=== PATIENT | male | born 1950 | race Caucasian/White ===

== ENCOUNTER 2017-11-04 18:54 | Emergency (ER) | payer MEDICARE ==
[~2017-11-04] VITALS: Ht 182.9 cm; Wt 90.7 kg
[~2017-11-04 18:54] MED LIST: ALGAL OMEGA-3200 MG PO; ASPI81CH PO; Aspir-Trin325 MG PO; BLUE; CALCA500CH PO; CEPH500 PO; COL-RITE250 MG PO; CYCL10; DOC250; DOCCAL240 PO; DOCSEN; ESCI10; FISH1000 PO; GABA300; GLIM2 PO; HYDCHL25 PO; METF500; METF500 PO; MILK THISTLE; MILK THISTLE140 MG PO; MORP30 PO; MORP30ER PO; MORP60ER; MULVITA; NIAC500 PO; OMEGA PO; OXYC10TA19; OXYC15ER PO; OXYC5 PO; PAROXETINE 5 MG; PRED20 PO; Percocet 5-3251 EACH PO; Potaba500 MG PO; STOOL SOFTENERS; Senna Plus Tab1 EACH PO; TIZA4; VALA500 PO; [UNRECOGNIZED DRUG - OTHER]; [UNRECOGNIZED DRUG - OTHER] PO
[2017-11-04] MEDS ORDERED: METF500C PO (19:19)
[2017-11-04] MEDS ORDERED: LISI5 PO (19:20)
[2017-11-04] MEDS ORDERED: GABA100 PO (19:24)
[2017-11-04] MEDS ORDERED: OMEPRAZOLE MAGN20 MG PO (19:25)
[2017-11-04] MEDS ORDERED: METCAR500 PO (19:27)
[2017-11-04] MEDS ORDERED: ACID REDUCER 1150 MG (19:27)
[2017-11-04 21:16] LABS: Alanine Aminotransfer (ALT/SGP 37 U/L (12-78); Albumin, Blood 3.2 g/dL (3.4-5.0); Albumin/Globulin Ratio 0.7 (0.8-1.8); Alk Phos 129 U/L (50-136); Anion Gap 10 mmol/L (6-16); Aspartate Aminotrans (AST/SGOT 58 U/L (12-37); Bilirubin, Total 0.5 mg/dL (0.1-1.0); Blood Urea Nitrogen 15 mg/dL (8-24); Bun/Creatinine Ratio 17.5 (12.0-20.0); CO2, Blood 23 mmol/L (21-32); Calcium, Blood 9.6 mg/dL (8.5-10.1); Chloride, Blood 104 mmol/L (98-108); Creatinine, Blood 0.86 mg/dL (0.60-1.20); Globulin, Blood 4.3 g/dL (2.2-4.0); Glomerular Filtration Rate >60 (60-); Glucose, Blood 185 mg/dL (70-99); Potassium, Blood 4.6 mmol/L (3.5-5.5); Sodium, Blood 137 mmol/L (136-145); Total Protein, Blood 7.5 g/dL (6.4-8.2)
[2017-11-04 21:26] LABS: BASOPHILS ABSOLUTE AUTO 0.02 K/mm3 (0.00-0.23); BASOPHILS PERCENT AUTO 0 % (0-2); EOSINOPHILS ABSOLUTE AUTO 0.23 K/mm3 (0.00-0.68); EOSINOPHILS PERCENT AUTO 4 % (0-6); Hemoglobin 8.6 g/dL (13.5-17.5); IMMATURE GRAN ABSOLUTE AUTO 0.01 K/mm3 (0.00-0.10); IMMATURE GRAN PERCENT AUTO 0 % (0-1); LYMPHOCYTES PERCENT AUTO 17 % (21-46); MONOCYTES ABSOLUTE AUTO 0.52 K/mm3 (0.16-1.47); MONOCYTES PERCENT AUTO 9 % (4-13); Mean Corpuscular HGB 26.4 pg (26.0-34.0); Mean Corpuscular HGB Conc 30.7 g/dL (31.5-36.5); Mean Corpuscular Volume 86 fL (80-100); NEUTROPHILS ABSOLUTE AUTO 4.15 K/mm3 (1.96-9.15); NEUTROPHILS PERCENT AUTO 70 % (41-73); Platelet Count 109 K/mm3 (150-400); Red Blood Cell Count 3.26 M/mm3 (4.30-5.90); White Blood Cell Count 5.93 K/mm3 (4.00-11.30)
[2017-11-04 21:28] LABS: Mean Platelet Volume 13.5 fL (9.1-12.4)
== END 2017-11-04 21:35 | disposition home or self-care (01) ==
LOC: ER 18:54
PROVIDERS: Emergency Medicine
DX: R40.4 Transient alteration of awareness (principal); E11.9 Type 2 diabetes mellitus without complications; I10 Essential (primary) hypertension; Z88.8 Allergy status to other drugs, medicaments and biological substances; Z88.0 Allergy status to penicillin; Z91.013 Allergy to seafood; Z79.899 Other long term (current) drug therapy; Z79.84 Long term (current) use of oral hypoglycemic drugs; Z79.82 Long term (current) use of aspirin
CPT/HCPCS: 80053; 83036; 85025; 93005; 93010; 99283

== ENCOUNTER 2018-09-10 10:29 | Day surgery (SDC) | payer MEDICARE ==
[~2018-09-10] VITALS: Ht 182.9 cm; Wt 111.4 kg
[~2018-09-10 10:29] MED LIST changes: +ACID REDUCER 1150 MG; +ASCO500 PO; +CHOL10002 PO; +CLOP75 PO; +CYCL10 PO; +DOC250 PO; +FAMO20 PO; +FISH OIL 1,0001 EAC1 PO; +GABA100 PO; +GLIM4 PO; +IRON SUPPLEMENT; +LISI5 PO; +MAGOXI400 PO; +METCAR500 PO; +METF500C PO; +Metformin HCl1000 MG PO; +Neurontin 300300 MG PO; +OMEPRAZOLE MAGN20 MG PO; +Prinivil10 MG PO; +Senna8.6 MG PO; +Simvastatin10 MG PO; +[UNRECOGNIZED DRUG - OTHER] PO
[2018-09-10] MEDS ORDERED: FURO20 (12:03)
== END 2018-09-10 14:37 | disposition home or self-care (01) ==
LOC: ORSCSDS 10:29
PROVIDERS: Internal Medicine Gastroenterology
PROC: 0DJD8ZZ Inspection of Lower Intestinal Tract, Via Natural or Artificial Opening Endoscopic (ICD-10-PCS; principal; 2018-09-10 13:00)
PROC: 0DJ08ZZ Inspection of Upper Intestinal Tract, Via Natural or Artificial Opening Endoscopic (ICD-10-PCS; principal; 2018-09-10 13:00)
DX: Z12.11 Encounter for screening for malignant neoplasm of colon (principal); K57.30 Diverticulosis of large intestine without perforation or abscess without bleeding; K76.0 Fatty (change of) liver, not elsewhere classified; K74.60 Unspecified cirrhosis of liver; G47.33 Obstructive sleep apnea (adult) (pediatric); I85.00 Esophageal varices without bleeding; K76.6 Portal hypertension; K31.89 Other diseases of stomach and duodenum; I10 Essential (primary) hypertension; E11.9 Type 2 diabetes mellitus without complications; F17.210 Nicotine dependence, cigarettes, uncomplicated; Z86.73 Personal history of transient ischemic attack (TIA), and cerebral infarction without residual deficits; Z79.899 Other long term (current) drug therapy
CPT/HCPCS: 43235; G0121; 82947; J1980; J2704; J7120

== ENCOUNTER 2019-04-21 12:14 | Inpatient (IN) | payer MEDICARE ==
[~2019-04-21] VITALS: Ht 175.3 cm; Wt 119.8 kg
[~2019-04-21 12:14] MED LIST changes: +FURO20 PO
[2019-04-21] MEDS ORDERED: OXYC5 PO (13:15)
[2019-04-21] MEDS ORDERED: PROBIOTIC1 EAC6 PO (13:16)
[2019-04-21] MEDS ORDERED: VITAMIN D-32000 UNIT PO (13:17)
[2019-04-21] MEDS ORDERED: ASCO500 PO (13:17)
[2019-04-21] MEDS ORDERED: MAGNESIUM OXID400 MG PO (13:18)
[2019-04-21] MEDS ORDERED: FERRETTS325 MG PO (13:18)
[2019-04-21] MEDS ORDERED: Potassium99 MG PO (13:19)
[2019-04-21 14:13] LABS: International Normalized Ratio 1.05; Prothrombin Time Results 11.1 Sec (9.7-11.5)
[2019-04-21 14:15] LABS: Alanine Aminotransfer (ALT/SGP 43 U/L (12-78); Albumin, Blood 3.3 g/dL (3.4-5.0); Alk Phos 78 U/L (50-136); Anion Gap 6 mmol/L (6-16); Aspartate Aminotrans (AST/SGOT 39 U/L (12-37); Bilirubin, Total 0.5 mg/dL (0.1-1.0); Blood Urea Nitrogen 16 mg/dL (8-24); Bun/Creatinine Ratio 19.5 (12.0-20.0); CO2, Blood 25 mmol/L (21-32); Calcium, Blood 8.9 mg/dL (8.5-10.1); Chloride, Blood 110 mmol/L (98-108); Creatinine, Blood 0.82 mg/dL (0.60-1.20); Globulin, Blood 3.2 g/dL (2.2-4.0); Glomerular Filtration Rate >60 (60-); Glucose, Blood 162 mg/dL (70-99); Potassium, Blood 3.9 mmol/L (3.5-5.5); Sodium, Blood 141 mmol/L (136-145); Total Protein, Blood 6.5 g/dL (6.4-8.2)
[2019-04-21 14:16] LABS: BASOPHILS ABSOLUTE AUTO 0.02 K/mm3 (0.00-0.23); BASOPHILS PERCENT AUTO 1 % (0-2); EOSINOPHILS ABSOLUTE AUTO 0.16 K/mm3 (0.00-0.68); EOSINOPHILS PERCENT AUTO 4 % (0-6); Hematocrit 32.9 % (37.0-53.0); Hemoglobin 10.8 g/dL (13.5-17.5); IMMATURE GRAN ABSOLUTE AUTO 0.01 K/mm3 (0.00-0.10); IMMATURE GRAN PERCENT AUTO 0 % (0-1); LYMPHOCYTES ABSOLUTE AUTO 0.65 K/mm3 (0.84-5.20); LYMPHOCYTES PERCENT AUTO 16 % (21-46); MONOCYTES ABSOLUTE AUTO 0.36 K/mm3 (0.16-1.47); MONOCYTES PERCENT AUTO 9 % (4-13); Mean Corpuscular HGB 31.2 pg (26.0-34.0); Mean Corpuscular HGB Conc 32.8 g/dL (31.5-36.5); Mean Corpuscular Volume 95 fL (80-100); NEUTROPHILS ABSOLUTE AUTO 2.81 K/mm3 (1.96-9.15); NEUTROPHILS PERCENT AUTO 70 % (41-73); Platelet Count 55 K/mm3 (150-400); RDW Coefficient Variation 13.7 % (11.7-14.2); RDW Standard Deviation 47.5 fL (35.1-46.3); Red Blood Cell Count 3.46 M/mm3 (4.30-5.90); White Blood Cell Count 4.01 K/mm3 (4.00-11.30)
[2019-04-21 14:39] LABS: Mean Platelet Volume 13.2 fL (9.1-12.4)
--- NOTE | 2019-04-21 15:13 | NUR ---
ECHOCARDIOGRAM COMPLETED
[2019-04-21 15:15] LABS: Percent Saturation 12.6 % (20.0-50.0)
--- NOTE | 2019-04-21 19:06 | NUR ---
ARRIVED FROM ER VIA SONIDO, TRANSFERRED TO BED, DR. DAVIS HERE TO SEE PT.
[2019-04-22 04:06] LABS: BASOPHILS ABSOLUTE AUTO 0.01 K/mm3 (0.00-0.23); BASOPHILS PERCENT AUTO 0 % (0-2); EOSINOPHILS ABSOLUTE AUTO 0.17 K/mm3 (0.00-0.68); EOSINOPHILS PERCENT AUTO 4 % (0-6); Hematocrit 32.7 % (37.0-53.0); Hemoglobin 10.4 g/dL (13.5-17.5); IMMATURE GRAN ABSOLUTE AUTO 0.01 K/mm3 (0.00-0.10); IMMATURE GRAN PERCENT AUTO 0 % (0-1); LYMPHOCYTES ABSOLUTE AUTO 0.86 K/mm3 (0.84-5.20); LYMPHOCYTES PERCENT AUTO 21 % (21-46); MONOCYTES ABSOLUTE AUTO 0.43 K/mm3 (0.16-1.47); MONOCYTES PERCENT AUTO 11 % (4-13); Mean Corpuscular HGB 30.7 pg (26.0-34.0); Mean Corpuscular HGB Conc 31.8 g/dL (31.5-36.5); Mean Corpuscular Volume 97 fL (80-100); NEUTROPHILS ABSOLUTE AUTO 2.55 K/mm3 (1.96-9.15); NEUTROPHILS PERCENT AUTO 63 % (41-73); Platelet Count 59 K/mm3 (150-400); RDW Coefficient Variation 13.4 % (11.7-14.2); RDW Standard Deviation 47.8 fL (35.1-46.3); Red Blood Cell Count 3.39 M/mm3 (4.30-5.90); White Blood Cell Count 4.03 K/mm3 (4.00-11.30)
[2019-04-22 04:12] LABS: Mean Platelet Volume 13.6 fL (9.1-12.4)
[2019-04-22 04:22] LABS: Anion Gap 5 mmol/L (6-16); Blood Urea Nitrogen 16 mg/dL (8-24); Bun/Creatinine Ratio 18.2 (12.0-20.0); CO2, Blood 27 mmol/L (21-32); Calcium, Blood 9.1 mg/dL (8.5-10.1); Chloride, Blood 111 mmol/L (98-108); Creatinine, Blood 0.88 mg/dL (0.60-1.20); Glomerular Filtration Rate >60 (60-); Glucose, Blood 135 mg/dL (70-99); Potassium, Blood 4.1 mmol/L (3.5-5.5); Sodium, Blood 143 mmol/L (136-145)
--- NOTE | 2019-04-22 06:24 | NUR ---
PT NPO POST MIDNIGHT FOR POSS OR TODAY. PT BP ELEVATED THIS AM, DID RESPOND TO PRN HYDRALAZINE. RLE SHORTENED AND EXT ROTATED, PT REP NO CHANGES IN SENSATION. PAIN MED PER EMAR W/REP RELIEF. PT USING URINAL TO VOID, XRAY COMPLETED THIS AM, PLAN FOR ECHO THIS AM. IVF CON PER ORDERS. PT USING CALL LIGHT FOR ASSISTANCE, WILL CONT TO MONITOR UNTIL REP GIVEN TO ONCOMING RN.
--- NOTE | 2019-04-22 17:41 | NUR ---
SHIFT SUMMARY PT A&OX4, VSS, PLAN FOR SURGERY THIS EVENING. PAIN MANAGED WITH 1 MG DILAUDID PER EMAR. NPO OF CLEAR LIQUIDS SINCE [address] CONCEPCION ORDER. 18G RWRIST, 20G LFA. IVF @ 30 MLS/HR. WILL REPORT TO ONCOMING NOC FRANCO.
--- NOTE | 2019-04-22 19:37 | NUR ---
PT IN OR AT THIS TIME .
--- NOTE | 2019-04-22 21:44 | NUR ---
PT FROM ICU TO SURGICAL FLOOR PT ARRIVED FROM ICU TO SURGICAL FLOOR AT 2130 TODAY. PT A&OX4 BUT DROWSY WITH VSS. RIGHT HIP AQUACEL DRESSING C/D/I WITH SOME SHADOWING. ICE APPLIED TO AREA AT THIS TIME. REPORTS N/T IN BLE AT BASELINE. DENIES SOB, DYSPNEA, OR CHEST PAIN. SPO2 AT 94% ON 1L NC. REPORTS PAIN AT 9/10 WITH 7/10 BEING TOLERABLE. WILL MEDICATE PER EMAR. SPOUSE ATTENTIVE AT BEDSIDE. CALL LIGHT WITHIN REACH AND PT DEMONSTRATED APPROPRIATE USE.
[2019-04-23 05:14] LABS: BASOPHILS PERCENT AUTO 0 % (0-2); EOSINOPHILS ABSOLUTE AUTO 0.01 K/mm3 (0.00-0.68); EOSINOPHILS PERCENT AUTO 0 % (0-6); Hematocrit 31.9 % (37.0-53.0); Hemoglobin 10.6 g/dL (13.5-17.5); IMMATURE GRAN ABSOLUTE AUTO 0.03 K/mm3 (0.00-0.10); IMMATURE GRAN PERCENT AUTO 0 % (0-1); LYMPHOCYTES ABSOLUTE AUTO 0.54 K/mm3 (0.84-5.20); LYMPHOCYTES PERCENT AUTO 7 % (21-46); MONOCYTES ABSOLUTE AUTO 0.38 K/mm3 (0.16-1.47); MONOCYTES PERCENT AUTO 5 % (4-13); Mean Corpuscular HGB 31.6 pg (26.0-34.0); Mean Corpuscular HGB Conc 33.2 g/dL (31.5-36.5); Mean Corpuscular Volume 95 fL (80-100); NEUTROPHILS ABSOLUTE AUTO 6.57 K/mm3 (1.96-9.15); NEUTROPHILS PERCENT AUTO 87 % (41-73); Platelet Count 72 K/mm3 (150-400); RDW Coefficient Variation 13.2 % (11.7-14.2); RDW Standard Deviation 46.5 fL (35.1-46.3); Red Blood Cell Count 3.35 M/mm3 (4.30-5.90); White Blood Cell Count 7.53 K/mm3 (4.00-11.30)
[2019-04-23 05:26] LABS: Mean Platelet Volume 13.2 fL (9.1-12.4)
--- NOTE | 2019-04-23 05:30 | NUR ---
SHIFT SUMMARY POD 1 THIS AM FOR RIGHT HIP REPAIR. PT RESTED MOST OF THE NIGHT. PAIN MANAGED WITH PO MEDS, IV DILAUDID X1 FOR BREAKTHROUGH, ICE THERAPY, AND REPOSITIONING PRN. SPO2 @ 93% ON 1L NC. AQUACEL DRESSING C/D/I WITH SLIGHT SHADOWING. ABLE TO MOVE BLE. REPORTS N/T IN BLE AT BASELINE. TOLERATING FLUIDS AND CRACKERS. SPOUSE AT BEDSIDE T/O SHIFT. PT IS CURRENTLY RESTING IN BED WITH SPOUSE AT BEDSIDE AND CALL LIGHT WITHIN REACH.
[2019-04-23 05:35] LABS: Anion Gap 5 mmol/L (6-16); Blood Urea Nitrogen 18 mg/dL (8-24); Bun/Creatinine Ratio 19.4 (12.0-20.0); CO2, Blood 26 mmol/L (21-32); Calcium, Blood 8.8 mg/dL (8.5-10.1); Chloride, Blood 107 mmol/L (98-108); Creatinine, Blood 0.93 mg/dL (0.60-1.20); Glomerular Filtration Rate >60 (60-); Glucose, Blood 223 mg/dL (70-99); Potassium, Blood 4.3 mmol/L (3.5-5.5); Sodium, Blood 138 mmol/L (136-145)
--- NOTE | 2019-04-23 11:48 | NUR ---
04/23/19 1148 Mariana Beard VERIFICATIONS: EDIT CHART.
--- NOTE | 2019-04-23 15:30 | NUR ---
BLADDER SCAN 817 MLS, STRAIGHT CATH 750 MLS
--- NOTE | 2019-04-23 16:12 | NUR ---
SHIFT SUMMARY PT A&OX4, VSS, TELE SR W/PVCS @ 64 BPM. CBGS REQUIRED COVERAGE PER EMAR - NEW HIGH SLIDING SCALE ORDER. POD1 R HIP NAILING, 3 SMALL AQUACEL DRY INTACT. PAIN MANAGED WITH 15 MG OXY Q4. BLADDER SCAN PERFORMED WHEN PT COULD NOT VOID, STRAIGHT CATH FOR 750 MLS URINE. IVF @ 30 MLS/HR. AMB/TRANSFER W/FWW & GB 2 PP MOD ASSIST TO CHAIR/BSC/BED. PT REPOSITIONS SELF WELL IN BED W/TRAPEZE. BAILEE PO, DENIES N&V. WILL REPORT TO ONCOMING NOC RN.
--- NOTE | 2019-04-23 22:12 | NUR ---
DONE AND CHARTED.
[2019-04-24 04:34] LABS: BASOPHILS ABSOLUTE AUTO 0.02 K/mm3 (0.00-0.23); BASOPHILS PERCENT AUTO 0 % (0-2); EOSINOPHILS ABSOLUTE AUTO 0.17 K/mm3 (0.00-0.68); EOSINOPHILS PERCENT AUTO 3 % (0-6); Hematocrit 30.4 % (37.0-53.0); Hemoglobin 9.7 g/dL (13.5-17.5); IMMATURE GRAN ABSOLUTE AUTO 0.01 K/mm3 (0.00-0.10); IMMATURE GRAN PERCENT AUTO 0 % (0-1); LYMPHOCYTES ABSOLUTE AUTO 1.23 K/mm3 (0.84-5.20); LYMPHOCYTES PERCENT AUTO 23 % (21-46); MONOCYTES ABSOLUTE AUTO 0.53 K/mm3 (0.16-1.47); MONOCYTES PERCENT AUTO 10 % (4-13); Mean Corpuscular HGB 31.2 pg (26.0-34.0); Mean Corpuscular HGB Conc 31.9 g/dL (31.5-36.5); NEUTROPHILS ABSOLUTE AUTO 3.47 K/mm3 (1.96-9.15); NEUTROPHILS PERCENT AUTO 64 % (41-73); Platelet Count 68 K/mm3 (150-400); RDW Coefficient Variation 13.3 % (11.7-14.2); RDW Standard Deviation 47.9 fL (35.1-46.3); Red Blood Cell Count 3.11 M/mm3 (4.30-5.90); White Blood Cell Count 5.43 K/mm3 (4.00-11.30)
[2019-04-24 04:37] LABS: Mean Corpuscular Volume 98 fL (80-100); Mean Platelet Volume 13.4 fL (9.1-12.4)
[2019-04-24 04:51] LABS: Anion Gap 3 mmol/L (6-16); Blood Urea Nitrogen 32 mg/dL (8-24); Bun/Creatinine Ratio 28.8 (12.0-20.0); CO2, Blood 27 mmol/L (21-32); Calcium, Blood 8.8 mg/dL (8.5-10.1); Chloride, Blood 108 mmol/L (98-108); Creatinine, Blood 1.11 mg/dL (0.60-1.20); Glomerular Filtration Rate >60 (60-); Glucose, Blood 169 mg/dL (70-99); Potassium, Blood 4.4 mmol/L (3.5-5.5); Sodium, Blood 138 mmol/L (136-145)
--- NOTE | 2019-04-24 05:37 | NUR ---
SHIFT SUMMARY: ABHISHEK IS POD2 FOR A RIGHT HIP NAILING. HE IS A&O X4. HE STATES HE IS EXPECTING TO BE TRANSFERRED TO A SNF TODAY. HE IS ON TELE, NORMAL SINUS RHYTHM. HE IS A 2 PERSON ASSIST W/GAIT BELT AND FWW. HE HAS BEEN VOIDING IN THE URINAL. HE COMPLAINS OF 8-10/10 PAIN IN HIS RIGHT HIP FOR WHICH THE OXYCODONE IS EFFECTIVE. HE HAS RESTED WITH SNORING RESPIRATIONS INTERMITTENTLY. HE IS TOLERATING PO INTAKE WELL. HE IS ABLE TO MAKE HIS NEEDS KNOWN. HE IS LYING IN BED WITH HIS CALL LIGHT IN REACH.
--- NOTE | 2019-04-24 11:45 | NUR ---
1110 CBG PATIENT BLOOD SUGAR 256. PATIENT HAS BOTTLE OF COKE AT BEDSIDE. PATIENT TELLS ME HIS BROUGHT HIM COKE "IT HELPS ME PEE". DISCUSSED BLOOD SUGAR AND ADA DIET ORDERS WITH PATIENT.
--- NOTE | 2019-04-24 15:00 | NUR ---
REPORT PHONED TO NARCISA AT [facility]. 1450 PT DISCHARGED WITH [facility] VIA WHEELCHAIR
== END 2019-04-24 14:53 | DRG 482 ==
LOC: ER 12:14 → SURS 15:53
PROVIDERS: Emergency Medicine; Orthopaedic Surgery; ADMIT Internal Medicine
PROC: 0QS606Z Reposition Right Upper Femur with Intramedullary Internal Fixation Device, Open Approach (ICD-10-PCS; principal; 2019-04-22 17:15)
DX: S72.141A Displaced intertrochanteric fracture of right femur, initial encounter for closed fracture (principal); W19.XXXA Unspecified fall, initial encounter; E11.9 Type 2 diabetes mellitus without complications; I10 Essential (primary) hypertension; G47.30 Sleep apnea, unspecified; G89.29 Other chronic pain; K21.9 Gastro-esophageal reflux disease without esophagitis; F17.200 Nicotine dependence, unspecified, uncomplicated; D69.6 Thrombocytopenia, unspecified; K74.60 Unspecified cirrhosis of liver; D64.9 Anemia, unspecified; I25.2 Old myocardial infarction; Z88.8 Allergy status to other drugs, medicaments and biological substances; Z88.0 Allergy status to penicillin; Z91.013 Allergy to seafood; Z79.84 Long term (current) use of oral hypoglycemic drugs; Z79.02 Long term (current) use of antithrombotics/antiplatelets; Z79.899 Other long term (current) drug therapy
CPT/HCPCS: 36415; 71045; 73502; 73552; 80048; 80053; 82607; 82728; 82746; 82947; 83036; 83540; 83550; 83880; 85025; 85610; 85730; 93005; 93010; 93306; 96374; 96376; 97110; 97161; 97166; 97530; 97535; 99285-25; A9270; C1713; J0330; J0360; J1100; J1170; J1650; J1940; J2250; J2370; J2405; J2704; J2710; J3010; J7030; J7120

== ENCOUNTER → 2020-09-27 | Outpatient (CLI) | payer MEDICARE ==
[~2020-09-27] MED LIST changes: +FERRETTS325 MG PO; +MAGNESIUM OXID400 MG PO; +PROBIOTIC1 EAC6 PO; +Potassium99 MG PO; +VITAMIN D-32000 UNIT PO
[2020-09-27 18:15] LABS: BASOPHILS ABSOLUTE AUTO 0.02 K/mm3 (0.00-0.23); BASOPHILS PERCENT AUTO 0 % (0-2); EOSINOPHILS ABSOLUTE AUTO 0.19 K/mm3 (0.00-0.68); EOSINOPHILS PERCENT AUTO 4 % (0-6); Hematocrit 39.9 % (37.0-53.0); Hemoglobin 12.9 g/dL (13.5-17.5); IMMATURE GRAN ABSOLUTE AUTO 0.02 K/mm3 (0.00-0.10); IMMATURE GRAN PERCENT AUTO 0 % (0-1); LYMPHOCYTES ABSOLUTE AUTO 0.79 K/mm3 (0.84-5.20); LYMPHOCYTES PERCENT AUTO 16 % (21-46); MONOCYTES ABSOLUTE AUTO 0.34 K/mm3 (0.16-1.47); MONOCYTES PERCENT AUTO 7 % (4-13); Mean Corpuscular HGB 29.9 pg (26.0-34.0); Mean Corpuscular HGB Conc 32.3 g/dL (31.5-36.5); Mean Corpuscular Volume 93 fL (80-100); NEUTROPHILS PERCENT AUTO 73 % (41-73); Platelet Count 75 K/mm3 (150-400); RDW Coefficient Variation 13.3 % (11.7-14.2); RDW Standard Deviation 45.8 fL (35.1-46.3); Red Blood Cell Count 4.31 M/mm3 (4.30-5.90); White Blood Cell Count 5.06 K/mm3 (4.00-11.30)
[2020-09-27 18:16] LABS: Prothrombin Time Results 10.8 Sec (9.7-11.5)
[2020-09-27 18:34] LABS: Mean Platelet Volume 14.1 fL (9.1-12.4)
[2020-09-27 18:56] LABS: Alanine Aminotransfer (ALT/SGP 31 U/L (12-78); Albumin, Blood 3.7 g/dL (3.4-5.0); Albumin/Globulin Ratio 0.9 (0.8-1.8); Alk Phos 120 U/L (50-136); Anion Gap 5 mmol/L (6-16); Aspartate Aminotrans (AST/SGOT 22 U/L (12-37); Bilirubin, Total 0.5 mg/dL (0.1-1.0); Blood Urea Nitrogen 21 mg/dL (8-24); Bun/Creatinine Ratio 21.5 (12.0-20.0); CO2, Blood 26 mmol/L (21-32); Calcium, Blood 9.4 mg/dL (8.5-10.1); Chloride, Blood 107 mmol/L (98-108); Creatinine, Blood 0.98 mg/dL (0.60-1.20); Globulin, Blood 3.9 g/dL (2.2-4.0); Glomerular Filtration Rate >60 (60-); Glucose, Blood 322 mg/dL (70-99); Potassium, Blood 3.9 mmol/L (3.5-5.5); Sodium, Blood 138 mmol/L (136-145); Total Protein, Blood 7.6 g/dL (6.4-8.2)
== END ==
LOC: LAB SHORT 13:52
PROVIDERS: Internal Medicine Gastroenterology
DX: K74.60 Unspecified cirrhosis of liver (principal)
CPT/HCPCS: 36415; 80053; 85025; 85610

== ENCOUNTER 2021-11-01 11:05 | Day surgery (SDC) | payer MEDICARE ==
[~2021-11-01] VITALS: Ht 182.9 cm; Wt 105.3 kg
[~2021-11-01 11:05] MED LIST changes: +Acetaminophen650 M1 PO; +LIDO700A20 TOP; -Metformin HCl1000 MG PO; +NEBI5 PO; +SENNA LAXATIVE8.6 MG PO
[2021-11-01] MEDS ORDERED: Prinivil10 MG (12:50)
[2021-11-01] MEDS ORDERED: OMEP20ER (12:51)
== END 2021-11-01 14:40 | disposition home or self-care (01) ==
LOC: ORSCSDS 11:05
PROVIDERS: Internal Medicine Gastroenterology
PROC: 0DJ08ZZ Inspection of Upper Intestinal Tract, Via Natural or Artificial Opening Endoscopic (ICD-10-PCS; principal; 2021-11-01 13:45)
DX: K74.60 Unspecified cirrhosis of liver (principal); E11.9 Type 2 diabetes mellitus without complications; G47.30 Sleep apnea, unspecified; K76.6 Portal hypertension; I10 Essential (primary) hypertension; I25.10 Atherosclerotic heart disease of native coronary artery without angina pectoris; I25.2 Old myocardial infarction; K31.89 Other diseases of stomach and duodenum; K21.9 Gastro-esophageal reflux disease without esophagitis; E66.9 Obesity, unspecified; Z68.32 Body mass index [BMI] 32.0-32.9, adult; F17.210 Nicotine dependence, cigarettes, uncomplicated; Z79.84 Long term (current) use of oral hypoglycemic drugs; Z79.01 Long term (current) use of anticoagulants; Z79.899 Other long term (current) drug therapy
CPT/HCPCS: 82947; A9270; J2704

== ENCOUNTER 2022-07-15 09:03 | Inpatient (IN) | payer MEDICARE ==
[~2022-07-15] VITALS: Ht 182.9 cm; Wt 104.6 kg
[~2022-07-15 09:03] MED LIST changes: +OMEP20ER
[2022-07-15 09:56] LABS: BASOPHILS ABSOLUTE AUTO 0.02 K/mm3 (0.00-0.23); BASOPHILS PERCENT AUTO 0 % (0-2); EOSINOPHILS ABSOLUTE AUTO 0.12 K/mm3 (0.00-0.68); EOSINOPHILS PERCENT AUTO 1 % (0-6); Hematocrit 35.2 % (37.0-53.0); Hemoglobin 11.7 g/dL (13.5-17.5); IMMATURE GRAN ABSOLUTE AUTO 0.02 K/mm3 (0.00-0.10); IMMATURE GRAN PERCENT AUTO 0 % (0-1); LYMPHOCYTES ABSOLUTE AUTO 0.54 K/mm3 (0.84-5.20); LYMPHOCYTES PERCENT AUTO 6 % (21-46); MONOCYTES ABSOLUTE AUTO 0.71 K/mm3 (0.16-1.47); MONOCYTES PERCENT AUTO 8 % (4-13); Mean Corpuscular HGB 29.8 pg (26.0-34.0); Mean Corpuscular HGB Conc 33.2 g/dL (31.5-36.5); Mean Corpuscular Volume 90 fL (80-100); Mean Platelet Volume 12.6 fL (9.1-12.4); NEUTROPHILS ABSOLUTE AUTO 7.13 K/mm3 (1.96-9.15); NEUTROPHILS PERCENT AUTO 84 % (41-73); Platelet Count 100 K/mm3 (150-400); RDW Coefficient Variation 13.7 % (11.7-14.2); RDW Standard Deviation 44.9 fL (35.1-46.3); Red Blood Cell Count 3.93 M/mm3 (4.30-5.90); White Blood Cell Count 8.54 K/mm3 (4.00-11.30)
[2022-07-15 09:59] LABS: Base Excess Venous 0.5 mmol/L; Bicarbonate Venous 24.5 mmol/L (24.0-30.0); PCO2 Venous 41.8 mmHg (38-42); pH Blood Venous 7.39 (7.34-7.37)
[2022-07-15 10:19] LABS: Magnesium, Blood 1.6 mg/dL (1.6-2.4)
[2022-07-15 10:22] LABS: Source, Urine Straight Cath
[2022-07-15 10:23] LABS: Albumin, Blood 3.3 g/dL (3.4-5.0); Albumin/Globulin Ratio 0.8 (0.8-1.8); Bilirubin, Total 0.7 mg/dL (0.1-1.0); Calcium, Blood 10.1 mg/dL (8.5-10.1); Creatinine, Blood 1.25 mg/dL (0.60-1.20); Globulin, Blood 4.4 g/dL (2.2-4.0); Potassium, Blood 5.8 mmol/L (3.5-5.5); Thyroid Stimulating Hormone 0.742 uIU/mL (0.360-4.800); Total Protein, Blood 7.7 g/dL (6.4-8.2)
[2022-07-15 10:26] LABS: Appearance, Urine Clear (Clear); Bilirubin, Urine Neg (Neg); Blood, Urine Neg (Neg); Color, Urine Yellow (P-Yellow); Glucose Qualitative, Urine 1+ (Neg); Ketones, Urine Neg (Neg); Leukocyte Esterase, Urine Neg (Neg); Nitrite, Urine Neg (Neg); Protein, Urine 2+ (Neg); Specific Gravity, Urine 1.015 (1.003-1.022); Urobilinogen, Urine NORM (Normal)
[2022-07-15 10:38] LABS: U Amphetamine Screen Not Detected; U Barbituate Screen Not Detected; U Benzodiazapine Screen Not Detected; U Buprenorphine Screen DETECTED; U Cannabinoids Screen Not Detected; U Cocaine Screen Not Detected; U Methadone Screen Not Detected; U Methamphetamine Screen Not Detected; U Opiates Screen Not Detected; U Oxycodone Screen Not Detected; U Phencyclidine Screen Not Detected; U Propoxyphene Screen Not Detected
[2022-07-15 10:45] LABS: Amorphous Light (0-Heavy); Bacteria Mod /hpf; Red Blood Cells, Urine 0-2 /hpf (0-2); Squamous Epithelial Cells Mod /hpf (Few)
[2022-07-15 10:46] LABS: Transitional Epithelial Cells Few /hpf (0-Rare)
[2022-07-15 11:03] LABS: Influenza A, PCR NEGATIVE (NEGATIVE); Influenza B, PCR NEGATIVE (NEGATIVE); Resp Syncytial Virus, PCR NEGATIVE (NEGATIVE); SARS-Cov-2 (COVID-19) PCR, MMC NEGATIVE (NEGATIVE)
[2022-07-15] MEDS ORDERED: PLAVIX75 MG PO (12:43)
[2022-07-15] MEDS ORDERED: BUPRENORPHIN-N1 EAC5 SL (12:44)
--- NOTE | 2022-07-15 18:38 | NUR ---
1730 ASSUMED CARE OF PT. NEW ADMIT FOR NONHEALING WOUND. IVF'S AND ABX INFUSING PER EMAR. PT SITTING HF IN BED WITH TV ON. PT'S SPEECH IS SLOW AND SOMEWHAT CONFUSED. SON CALLED FROM [place] TO ON PT, REPORTING HIS DAD HAS BEEN LIKE THIS FOR A COUPLE OF DAYS; CONFUSED, WEAK, AND "OUT OF IT". PT'S NOT AVAILABLE TO REVIEW HOME MEDICATIONS, PT DOES NOT KNOW WHAT HE TAKES. 'S PHONE NUMBERS OBTAINED FROM SON AND PLACED ON CHART IN ORDER TO CONTACT HER IN AM. SON REPORTED TO BE HOME THEN. PT SITTING UPRIGHT IN BED EATING DINNER AT THIS TIME. NO S/SX'S OF DISTRESS NOTED OR REPORTED. CALL LT IN REACH. DENIED FURTHER NEEDS AT THIS TIME.
--- NOTE | 2022-07-15 21:20 | NUR ---
DAUGHTER, DARRELL, CALLED TO INFORM US STAFF THAT PT HAS AN ABDOMINAL HERNIA AND WEARS AN ABDOMINAL BINDER. CALLED AND GAVE ME SOME OF THE EVENIGN MEDS THE PATIENT TAKES BUT WAS UNABLE TO PROVIDE ALL OF THE INFORMATION. WILL BRING THE LIST IN WITH HER IN THE MORNING. DID STATE HIS DEXCOM WAS DUE TO BE CHANGED TOMORROW AND SHE WOULD BE BRINGING A NEW ONE IN WITH HIM; INFORMED HER HOSPITAL POLICY IS TO USE HOSPICAL MACHINE TO CHECK FOR ACCURACY AND EMR INTEGRATION TO WHICH SHE AGREED.
[2022-07-16 05:12] LABS: BASOPHILS ABSOLUTE AUTO 0.01 K/mm3 (0.00-0.23); BASOPHILS PERCENT AUTO 0 % (0-2); EOSINOPHILS ABSOLUTE AUTO 0.12 K/mm3 (0.00-0.68); EOSINOPHILS PERCENT AUTO 2 % (0-6); Hematocrit 30.4 % (37.0-53.0); Hemoglobin 10.2 g/dL (13.5-17.5); IMMATURE GRAN ABSOLUTE AUTO 0.01 K/mm3 (0.00-0.10); IMMATURE GRAN PERCENT AUTO 0 % (0-1); LYMPHOCYTES ABSOLUTE AUTO 0.75 K/mm3 (0.84-5.20); LYMPHOCYTES PERCENT AUTO 15 % (21-46); MONOCYTES ABSOLUTE AUTO 0.45 K/mm3 (0.16-1.47); MONOCYTES PERCENT AUTO 9 % (4-13); Mean Corpuscular HGB 30.2 pg (26.0-34.0); Mean Corpuscular HGB Conc 33.6 g/dL (31.5-36.5); Mean Corpuscular Volume 90 fL (80-100); Mean Platelet Volume 12.4 fL (9.1-12.4); NEUTROPHILS ABSOLUTE AUTO 3.57 K/mm3 (1.96-9.15); NEUTROPHILS PERCENT AUTO 73 % (41-73); Platelet Count 73 K/mm3 (150-400); RDW Coefficient Variation 13.6 % (11.7-14.2); RDW Standard Deviation 45.1 fL (35.1-46.3); Red Blood Cell Count 3.38 M/mm3 (4.30-5.90); White Blood Cell Count 4.91 K/mm3 (4.00-11.30)
[2022-07-16 05:29] LABS: Bun/Creatinine Ratio 31.9 (12.0-20.0); Calcium, Blood 9.8 mg/dL (8.5-10.1); Creatinine, Blood 0.94 mg/dL (0.60-1.20); Potassium, Blood 4.7 mmol/L (3.5-5.5)
--- NOTE | 2022-07-16 07:12 | NUR ---
BLOCK SORTER SUMMARY: A&Ox2-4. DEMONSTRATES EPISODIC CONFUSION, PARTICULARLY DURING THE NIGHT UPON WAKING. WILL BE IN TOMORROW TO VISIT AND WILL BRING HIS CURRENT MEDICATION LIST SHE WAS HAVING DIFFICULTY TRYING TO PROVIDE IT OVER THE PHONE. PRN APRESOLINE ADMINISTERED HS FOR SBP >160. HEEL PROTECTOR IN PLACE ALONG WITH HEEL FOAM. NO ACUTE CONCERNS T/O THE NIGHT. LABS DRAWN THIS AM. NO CRITICAL RESULTS REPORTED TO THIS RN. WILL REPORT TO ONCOMING RN.
[2022-07-16] MEDS ORDERED: SPIR50 PO (09:34)
[2022-07-16] MEDS ORDERED: FURO20 PO (11:37)
--- NOTE | 2022-07-16 12:04 | NUR ---
PT STATES NO ALLERGY TO LISINOPRIL, HE SAID HE TAKES IT AT HOME EVERYDAY. HIS CAN VERIFY THAT WELL.
--- NOTE | 2022-07-16 16:25 | NUR ---
WOUND CARE BL LUISA/TBI ORDERED PER DR. GUZMAN. R DP PULSE EASILY PALPATED. THIS RN UNABLE TO PALPATE R PT PULSE. PT HAS WOUNDS TO R CALCANEOUS AND R 5TH TOE. POLYMEM CLOTH DOT TO R 5TH TOE. KEEP R CALCANEOUS DRY AND OFFLOADED AT THIS TIME. RECOMMEND GROUP TWO MATRESS OR PINK EGGCRATE. BACK TACKER WILL FOLLOW UP WITH PT TOMORROW AFTER ARTERIAL STUDY
--- NOTE | 2022-07-16 17:55 | NUR ---
SHIFT SUMMARY PT AOX4 THIS SHIFT, IMPROVING SINCE YESTERDAY. PT'S VISITED TODAY, AND I SPOKE WITH HIS DAUGHTER TODAY. HE IS NOW USING THE BATHROOM TO URINATE, HE WORKED WITH PT TODAY AND THEY OK'D HIM TO WALK WITH A FWW AND GB. HE IS CURRENTLY GETTING AN ULTRASOUND OF HIS R HEEL, AN LUISA/TBI WAS ORDERED. WOUND ALSO CONSULTED WITH HIM TODAY, ORDERS PENDING THE U/S RESULTS. HIS INITIAL L IV INFILITRATED AND ANOTHER ONE WAS PLACED IN THE L ARM. HE HAS HAD NO C/O P/N/V/CP/SOB. WILL REPORT TO ONCOMING NURSE.
[2022-07-16 20:51] LABS: Vancomycin, Trough 19.7 ug/mL (5.0-10.0)
[2022-07-17 05:36] LABS: Albumin, Blood 2.7 g/dL (3.4-5.0); Anion Gap 5 mmol/L (6-16); Blood Urea Nitrogen 23 mg/dL (8-24); Bun/Creatinine Ratio 27.5 (12.0-20.0); CO2, Blood 23 mmol/L (21-32); Calcium, Blood 9.6 mg/dL (8.5-10.1); Chloride, Blood 107 mmol/L (98-108); Creatinine, Blood 0.84 mg/dL (0.60-1.20); Glomerular Filtration Rate 92 (60-); Glucose, Blood 182 mg/dL (70-99); Potassium, Blood 4.5 mmol/L (3.5-5.5); Sodium, Blood 135 mmol/L (136-145)
[2022-07-17 05:49] LABS: BASOPHILS ABSOLUTE AUTO 0.02 K/mm3 (0.00-0.23); BASOPHILS PERCENT AUTO 1 % (0-2); EOSINOPHILS ABSOLUTE AUTO 0.17 K/mm3 (0.00-0.68); EOSINOPHILS PERCENT AUTO 5 % (0-6); Hemoglobin 10.2 g/dL (13.5-17.5); IMMATURE GRAN ABSOLUTE AUTO 0.01 K/mm3 (0.00-0.10); IMMATURE GRAN PERCENT AUTO 0 % (0-1); LYMPHOCYTES ABSOLUTE AUTO 0.78 K/mm3 (0.84-5.20); LYMPHOCYTES PERCENT AUTO 21 % (21-46); MONOCYTES ABSOLUTE AUTO 0.32 K/mm3 (0.16-1.47); MONOCYTES PERCENT AUTO 9 % (4-13); Mean Corpuscular HGB 30.2 pg (26.0-34.0); Mean Corpuscular Volume 89 fL (80-100); Mean Platelet Volume 12.5 fL (9.1-12.4); NEUTROPHILS PERCENT AUTO 65 % (41-73); Platelet Count 75 K/mm3 (150-400); RDW Coefficient Variation 13.5 % (11.7-14.2); RDW Standard Deviation 44.1 fL (35.1-46.3); Red Blood Cell Count 3.38 M/mm3 (4.30-5.90)
--- NOTE | 2022-07-17 06:08 | NUR ---
SHIFT SUMMARY 72 YR M ADMITTED ON 07/15/22 FOR RIGHT HEEL WOUND. FULL CODE. NO ACUTE CHANGES THIS SHIFT. PT HAS BEEN PLEASANT AND COOPERATIVE WITH CARE. HE HAS HAD NO C/O PAIN OR DISCOMFORT THIS SHIFT. R HEEL WOUND IS OPEN TO AIR PER WOUND CARE NURSE ORDERS. HE HAS BEEN A&O X 4.
--- NOTE | 2022-07-17 13:50 | NUR ---
WOUND CARE LUISA/TBI COMPLETE. R LUISA 1.04 R TBI 0.6 WITH MONOPHASIC FLOW AT THE PT AND DP ARTERIES. WHILE NOT OPTIMAL THIS IS ADEQUATE TO SUPPORT WOUND HEALING. ON ASSESSMENT YESTERDAY ESCHAR CAP TO R CALCANEOUS WAS SOMEWHAT BOGGY. REPORTS THAT PODIARIST PRESCRIBED DAILY SILVADENE TO WOUND. ON ASSESSMENT TODAY ESCHAR CAP HAS FIRMED AND IS STABLE. AT THIS POINT GIVEN THE PT IS DIABETIC WITH DIMINISHED BLOOD FLOW THIS RN WOULD RECOMMEND KEEPING R HEEL DRY WITH VIGOROUS OFFLOADING. THIS SHOULD ALLOW ESCHAR TO PROVIDE BODIES NATURAL PROTECTION AND THE WOUND WILL HEAL FROM THE BOTTOM UP. RECOMMEND FOLLOW UP WITH WOUND CLINIC AND DIABETIC SHOES WITH WOUND CLINIC AND DIABETIC SHOES.
--- NOTE | 2022-07-17 16:51 | NUR ---
PATIENT IS ALERT AND ORIENTED AND COOPERATIVE WITH CARE. PATIENT WORKED WITH BOTH PT AND OT THIS SHIFT WHO BOTH SAID HE DID MUCH BETTER TODAY THAN YESTERDAY AND WAS ABLE TO WALK WITHOUT BEARING WEIGHT ON HIS RIGHT HEEL. THE SENIOR TABLEAU DEVELOPER ASSESSED THE PATIENT'S FOOT WOUNDS TODAY AND PLACED ORDERED FOR WOUND CARE. ABDOMINAL BINDER IN PLACED FOR LLQ HERNIA. USES THE URINAL. 1PA TO BATHROOM. PATIENT LIVES WITH HIS , SON AND AND [id number]. WOUND CARE CLINIC REFFERAL OUTPT. WILL CONTINUE TO MONITOR
[2022-07-17 20:41] LABS: Vancomycin, Trough 24.6 ug/mL (5.0-10.0)
--- NOTE | 2022-07-18 05:54 | NUR ---
SHIFT SUMMARY PATIENT IS ALERT AND ORIENTED. PATIENT HAS BEEN PLEASENT AND COOPERATIVE WITH CARE. PATIENT HAS A NON HEALING WOUND ON FOOT AND HAS BEEN AMBULATING WITHOUT DIFFICULTY. PATIENT HAS BEEN A 1X ASSIST TO BATHROOM. WOUND CARE CONSULTING ON WOUNDS. PATIENT HAS NOT COMPLAINED OF PAIN, NAUSEA, SOB OR VOMITTING THIS SHIFT. VITAL SIGNS REVIEWED. NO ACUTE EVENTS THIS SHIFT. BED IN LOCKED AND LOWEST POSITION.
[2022-07-18 06:03] LABS: BASOPHILS ABSOLUTE AUTO 0.01 K/mm3 (0.00-0.23); BASOPHILS PERCENT AUTO 0 % (0-2); EOSINOPHILS ABSOLUTE AUTO 0.14 K/mm3 (0.00-0.68); EOSINOPHILS PERCENT AUTO 4 % (0-6); Hematocrit 31.2 % (37.0-53.0); Hemoglobin 10.3 g/dL (13.5-17.5); IMMATURE GRAN ABSOLUTE AUTO 0.01 K/mm3 (0.00-0.10); IMMATURE GRAN PERCENT AUTO 0 % (0-1); LYMPHOCYTES ABSOLUTE AUTO 0.66 K/mm3 (0.84-5.20); LYMPHOCYTES PERCENT AUTO 20 % (21-46); MONOCYTES ABSOLUTE AUTO 0.31 K/mm3 (0.16-1.47); MONOCYTES PERCENT AUTO 10 % (4-13); Mean Corpuscular HGB 29.6 pg (26.0-34.0); Mean Corpuscular Volume 90 fL (80-100); NEUTROPHILS PERCENT AUTO 65 % (41-73); Platelet Count 75 K/mm3 (150-400); RDW Coefficient Variation 13.4 % (11.7-14.2); RDW Standard Deviation 43.9 fL (35.1-46.3); Red Blood Cell Count 3.48 M/mm3 (4.30-5.90); White Blood Cell Count 3.23 K/mm3 (4.00-11.30)
[2022-07-18 06:34] LABS: Bun/Creatinine Ratio 24.8 (12.0-20.0); Calcium, Blood 9.5 mg/dL (8.5-10.1); Creatinine, Blood 0.85 mg/dL (0.60-1.20); Potassium, Blood 4.4 mmol/L (3.5-5.5)
--- NOTE | 2022-07-18 16:04 | NUR ---
MET WITH PT, HE REPORTS HE IS FEEELING BETTER AND PLAN TO BE DC TOMORROW TO RESUME SERVICES WITH HH. PT HAS NO OTHER QUESTIONS AT THIS TIME. PALLIATIVE CARE WILL CONT TO OFFER SUPPORT NEEDED.
--- NOTE | 2022-07-18 19:42 | NUR ---
PT ALERT NO S/S OF ACUTE DISTRESS. SAFETY MEASURES IN PLACE REPORT GIVEN TO ON COMING NURSE.
--- NOTE | 2022-07-19 06:00 | NUR ---
END OF SHIFT NURSING REPORT - PM Admitted following a fall and was found with a chronic wound to right-heel. Wound care consult on the case. Patient is AOX4, able to ambulate to bathroom using a rolling walker - standby assist. Medicated with Suboxone for chronic pain . IV antibiotics Cancomycin infused and NS running at 50mL/Hr. Vanc trough due tonight at 1999. Vitals stable through night.
== END 2022-07-19 14:17 | disposition home health service (06) | DRG 872 ==
LOC: ER 09:03 → MEDS 13:43
PROVIDERS: Emergency Medicine; Pharmacist; ADMIT Internal Medicine
PROC: 3E03329 Introduction of Other Anti-infective into Peripheral Vein, Percutaneous Approach (ICD-10-PCS; principal; 2022-07-15)
PROC: 4A133R1 Monitoring of Arterial Saturation, Peripheral, Percutaneous Approach (ICD-10-PCS; 2022-07-15)
DX: A41.9 Sepsis, unspecified organism (principal); E87.1 Hypo-osmolality and hyponatremia; I69.351 Hemiplegia and hemiparesis following cerebral infarction affecting right dominant side; N17.9 Acute kidney failure, unspecified; E87.20 Acidosis, unspecified; L89.619 Pressure ulcer of right heel, unspecified stage; Z20.822 Contact with and (suspected) exposure to COVID-19; G47.33 Obstructive sleep apnea (adult) (pediatric); G89.29 Other chronic pain; F17.210 Nicotine dependence, cigarettes, uncomplicated; E87.5 Hyperkalemia; R07.89 Other chest pain; E86.0 Dehydration; E11.628 Type 2 diabetes mellitus with other skin complications; I10 Essential (primary) hypertension; I25.10 Atherosclerotic heart disease of native coronary artery without angina pectoris; Z87.01 Personal history of pneumonia (recurrent); Z90.89 Acquired absence of other organs; Z98.890 Other specified postprocedural states; Z88.8 Allergy status to other drugs, medicaments and biological substances; Z88.0 Allergy status to penicillin; Z91.013 Allergy to seafood; Z79.02 Long term (current) use of antithrombotics/antiplatelets; Z79.84 Long term (current) use of oral hypoglycemic drugs; Z79.899 Other long term (current) drug therapy; W18.39XA Other fall on same level, initial encounter; Y92.002 Bathroom of unspecified non-institutional (private) residence as the place of occurrence of the external cause
CPT/HCPCS: 0241U; 36415; 51701; 70450; 71045; 71250; 73620; 73650; 74176; 80048; 80053; 80069; 80202; 81001; 82140; 82803; 82947; 83605; 83735; 83880; 84443; 85025; 87040; 87086; 93005; 93010; 93923; 97110; 97116; 97162; 97166; 97530; 97535; 99285-25; A9270; J0360; J1650; J3370; J7030; J7050

== ENCOUNTER 2022-08-08 01:13 | Day surgery (SDC) | payer MEDICARE ==
[~2022-08-08 01:13] MED LIST changes: +BUPRENORPHIN-N1 EAC5 SL; +PLAVIX75 MG PO; +SPIR50 PO
== END 2022-08-08 22:42 | disposition home or self-care (01) ==
LOC: WOUND 01:13
DX: L89.610 Pressure ulcer of right heel, unstageable (principal); L89.890 Pressure ulcer of other site, unstageable; E11.621 Type 2 diabetes mellitus with foot ulcer; L97.512 Non-pressure chronic ulcer of other part of right foot with fat layer exposed; E11.42 Type 2 diabetes mellitus with diabetic polyneuropathy; Z72.0 Tobacco use
CPT/HCPCS: 99406; G0463

== ENCOUNTER 2022-08-15 02:55 | Day surgery (SDC) | payer MEDICARE | END 2022-08-15 23:12 | disposition home or self-care (01) | LOC: WOUND | DX: L89.610 Pressure ulcer of right heel, unstageable (principal); E11.42 Type 2 diabetes mellitus with diabetic polyneuropathy; Z72.0 Tobacco use | CPT/HCPCS: 99406; G0463 ==

== ENCOUNTER 2022-08-17 14:01 | Inpatient (IN) | payer MEDICARE ==
[~2022-08-17] VITALS: Ht 182.9 cm; Wt 103.3 kg
[2022-08-17 14:37] LABS: BASOPHILS ABSOLUTE AUTO 0.02 K/mm3 (0.00-0.23); BASOPHILS PERCENT AUTO 0 % (0-2); EOSINOPHILS ABSOLUTE AUTO 0.07 K/mm3 (0.00-0.68); EOSINOPHILS PERCENT AUTO 1 % (0-6); Hematocrit 31.5 % (37.0-53.0); Hemoglobin 10.3 g/dL (13.5-17.5); IMMATURE GRAN ABSOLUTE AUTO 0.12 K/mm3 (0.00-0.10); IMMATURE GRAN PERCENT AUTO 1 % (0-1); LYMPHOCYTES ABSOLUTE AUTO 0.58 K/mm3 (0.84-5.20); LYMPHOCYTES PERCENT AUTO 4 % (21-46); MONOCYTES ABSOLUTE AUTO 0.89 K/mm3 (0.16-1.47); MONOCYTES PERCENT AUTO 6 % (4-13); Mean Corpuscular HGB 29.3 pg (26.0-34.0); Mean Corpuscular HGB Conc 32.7 g/dL (31.5-36.5); Mean Corpuscular Volume 90 fL (80-100); Mean Platelet Volume 12.1 fL (9.1-12.4); NEUTROPHILS ABSOLUTE AUTO 12.23 K/mm3 (1.96-9.15); NEUTROPHILS PERCENT AUTO 88 % (41-73); Platelet Count 105 K/mm3 (150-400); RDW Coefficient Variation 13.8 % (11.7-14.2); RDW Standard Deviation 45.1 fL (35.1-46.3); Red Blood Cell Count 3.52 M/mm3 (4.30-5.90); White Blood Cell Count 13.91 K/mm3 (4.00-11.30)
[2022-08-17 15:03] LABS: Albumin, Blood 2.8 g/dL (3.4-5.0); Albumin/Globulin Ratio 0.6 (0.8-1.8); Bilirubin, Total 0.5 mg/dL (0.1-1.0); Bun/Creatinine Ratio 21.8 (12.0-20.0); Calcium, Blood 9.6 mg/dL (8.5-10.1); Creatinine, Blood 1.01 mg/dL (0.60-1.20); Globulin, Blood 4.8 g/dL (2.2-4.0); Potassium, Blood 4.8 mmol/L (3.5-5.5); Total Protein, Blood 7.6 g/dL (6.4-8.2)
[2022-08-17 15:16] LABS: Source, Urine Straight Cath
[2022-08-17 15:33] LABS: Appearance, Urine Clear (Clear); Bilirubin, Urine Neg (Neg); Blood, Urine Neg (Neg); Color, Urine Yellow (P-Yellow); Glucose Qualitative, Urine 1+ (Neg); Ketones, Urine Neg (Neg); Leukocyte Esterase, Urine Neg (Neg); Nitrite, Urine Neg (Neg); Protein, Urine 2+ (Neg); Specific Gravity, Urine 1.015 (1.003-1.022); Urobilinogen, Urine NORM (Normal)
[2022-08-17 15:43] LABS: Red Blood Cells, Urine 0-2 /hpf (0-2); White Blood Cells, Urine 0-2 /hpf (0-5)
[2022-08-17 15:44] LABS: Bacteria Few /hpf; Squamous Epithelial Cells Rare /hpf (Few); Transitional Epithelial Cells Rare /hpf (0-Rare)
[2022-08-18 04:29] LABS: BASOPHILS ABSOLUTE AUTO 0.02 K/mm3 (0.00-0.23); BASOPHILS PERCENT AUTO 0 % (0-2); EOSINOPHILS ABSOLUTE AUTO 0.14 K/mm3 (0.00-0.68); EOSINOPHILS PERCENT AUTO 2 % (0-6); Hematocrit 29.3 % (37.0-53.0); Hemoglobin 9.5 g/dL (13.5-17.5); IMMATURE GRAN ABSOLUTE AUTO 0.04 K/mm3 (0.00-0.10); IMMATURE GRAN PERCENT AUTO 1 % (0-1); LYMPHOCYTES ABSOLUTE AUTO 0.62 K/mm3 (0.84-5.20); LYMPHOCYTES PERCENT AUTO 8 % (21-46); MONOCYTES ABSOLUTE AUTO 0.47 K/mm3 (0.16-1.47); MONOCYTES PERCENT AUTO 6 % (4-13); Mean Corpuscular HGB 29.4 pg (26.0-34.0); Mean Corpuscular HGB Conc 32.4 g/dL (31.5-36.5); Mean Corpuscular Volume 91 fL (80-100); Mean Platelet Volume 12.3 fL (9.1-12.4); NEUTROPHILS ABSOLUTE AUTO 6.54 K/mm3 (1.96-9.15); NEUTROPHILS PERCENT AUTO 84 % (41-73); Platelet Count 78 K/mm3 (150-400); RDW Coefficient Variation 13.6 % (11.7-14.2); RDW Standard Deviation 45.1 fL (35.1-46.3); Red Blood Cell Count 3.23 M/mm3 (4.30-5.90); White Blood Cell Count 7.83 K/mm3 (4.00-11.30)
[2022-08-18 04:35] LABS: Albumin, Blood 2.4 g/dL (3.4-5.0); Albumin/Globulin Ratio 0.5 (0.8-1.8); Bilirubin, Total 1.1 mg/dL (0.1-1.0); Bun/Creatinine Ratio 21.8 (12.0-20.0); Calcium, Blood 9.2 mg/dL (8.5-10.1); Creatinine, Blood 0.97 mg/dL (0.60-1.20); Globulin, Blood 4.4 g/dL (2.2-4.0); Potassium, Blood 4.4 mmol/L (3.5-5.5); Total Protein, Blood 6.8 g/dL (6.4-8.2)
--- NOTE | 2022-08-18 06:15 | NUR ---
SHIFT SUMMARY PATIENT ALERT, ORIENTED x3-4 BUT CAN BE FORGETFUL AT TIMES. PATIENT ABLE TO MAKE NEEDS KNOWN TO STAFF. VSS, PATIENT REMAINS ON RA WITH O2 SAT >90%. PATIENT WEARING OME ABDOMINAL BINDER DUE TO "HERNIA" BUT STATES HE HAS ABDOMINAL PAIN WITHOUT IT. RIGHT HEEL ELEVATED ON PILLOWS DURING THE NIGHT. DRESSING NOT REMOVED DUE TO WOUND CLINIC CONSULT DURING DAY SHIFT AND WOUND CLINIC FOLLOWING PATIENT AT HOME. PATIENT NPO SINCE 0000, AWAITING PODIATRY CONSULT. LUJAN IN PLACE DRAINING YELLOW URINE TO GRAVITY. NO OTHER CHANGES, WILL REPORT TO DAY SHIFT RN.
--- NOTE | 2022-08-18 18:21 | NUR ---
SHIFT SUMMARY PT A/OX4 AND COOPERATIVE OF CARE. PT VSS THROUGHOUT SHIFT WITH O2 SATS IN THE 90'S ON RA. NO REPORT OF CHEST PAIN/PRESSURE THROUGHOUT SHIFT. NO REPORT OF SOB/DYSPNEA THROUGHOUT SHIFT. PT SEEN BY PODIATRY, RIGHT FOOT WOUND DEBRIDED AND REDRESSED BY CONVERTING TECHNICIAN. ADDITIONAL DEBRIDEMENT PLANNED FOR 08/20/22. FO;EY IN PLACE DRAINING TO GRAVITY, DARK YELLOW URINE. PT REPORTED PAIN TO HIS RIGHT FOOT AFTER DEBRIDEMENT, OXYCODONE ORDERED SEE EMAR. PT FAMILY UPDATED TODAY.
[2022-08-19 04:23] LABS: Hematocrit 29.5 % (37.0-53.0); Hemoglobin 9.7 g/dL (13.5-17.5); Mean Corpuscular HGB 29.1 pg (26.0-34.0); Mean Corpuscular HGB Conc 32.9 g/dL (31.5-36.5); Mean Corpuscular Volume 89 fL (80-100); Mean Platelet Volume 12.4 fL (9.1-12.4); Platelet Count 78 K/mm3 (150-400); RDW Coefficient Variation 13.4 % (11.7-14.2); RDW Standard Deviation 43.7 fL (35.1-46.3); Red Blood Cell Count 3.33 M/mm3 (4.30-5.90); White Blood Cell Count 5.42 K/mm3 (4.00-11.30)
[2022-08-19 04:54] LABS: Albumin, Blood 2.3 g/dL (3.4-5.0); Albumin/Globulin Ratio 0.5 (0.8-1.8); Bilirubin, Total 0.4 mg/dL (0.1-1.0); Bun/Creatinine Ratio 25.1 (12.0-20.0); Calcium, Blood 9.7 mg/dL (8.5-10.1); Creatinine, Blood 0.88 mg/dL (0.60-1.20); Globulin, Blood 4.6 g/dL (2.2-4.0); Magnesium, Blood 1.5 mg/dL (1.6-2.4); Phosphorus, Blood 3.1 mg/dL (2.5-4.9); Potassium, Blood 4.4 mmol/L (3.5-5.5); Total Protein, Blood 6.9 g/dL (6.4-8.2)
--- NOTE | 2022-08-19 06:15 | NUR ---
SHIFT SUMMARY PATIENT ALERT, ORIENTED x3-4. VSS, PATIENT REMAINS ON RA WITH O2 SAT >90%. PATIENT ABLE TO SLEEP FOR MAJORITY OF SHIFT. MEDICATED FOR PAIN x1, ELEVATED HEEL TOLERATED PER PATIENT. ABDOMINAL BINDER REMAINS IN PLACE. LUJAN IN PLACE DRAINING DARK YELLOW URINE TO GRAVITY. NO OTHER CHANGES THIS SHIFT, WILL REPORT TO DAY SHIFT RN.
[2022-08-19 11:36] LABS: Vancomycin, Trough 11.3 ug/mL (5.0-10.0)
--- NOTE | 2022-08-19 15:23 | NUR ---
TRANSFER PATIENT MADE SURG, NO TELE. PATIENT A&OX4. PATIENT IS A 1P WITH A FWW. PATIENT DOES TOE-TOUCH ON RIGHT FOOT. PATIENT HAD SHOWER AND THIS RN CHANGED AMARI WRAP BECAUSE IT GOT WET. PATIENT ON ROOM AIR, SATURATING AT 95%. PATIENT WILL BE NPO AT MIDNIGHT FOR PROCEDURE TOMORROW. NEW PICTURES TAKEN OF RIGHT HEEL TODAY. NEW IV PLACED, 20G TO LEFT FOREARM. PATIENT INFORMED OF TRANSFER TO SURGICAL FLOOR, PATIENT AGREEABLE. LUJAN IS PATENT AND DRAINING, IN PLACE DUE TO RETENTION. PATIENT IS EATING AND DRINKING WELL. PATIENT IS PLEASANT AND COOPERATIVE WITH CARE. REPORT GIVEN TO EDUARDO VALENTINE RN ON SURGICAL FLOOR. BELONGINGS SENT WITH PATIENT. PATIENT TRANSFERED TO ROOM 209 AT 1530.
--- NOTE | 2022-08-19 15:24 | NUR ---
PT ARRIVED TO UNIT FROM PCU PT TRANSFERED TO BED WITH 1 ASSIST, IV INFUSING PER ORDERS. PT DENIES PAIN. CURRENTLY SITTING UP IN BED, CALL LIGHT IN REACH. DENIES SOB OR CHEST PAIN. AA0X4. PLAN IS FOR PATIENT TO BE NPO AT MIDNIGHT FOR PROCEDURE TOMORROW. PT AWARE OF PLAN AND AGREEABLE.
--- NOTE | 2022-08-19 16:40 | NUR ---
SHIFT SUMMARY NO ACUTE CHANGES SINCE ARRIVAL TO UNIT. PLAN IS TO BE NPO AT MIDNIGHT FOR I&D TOMORROW OF R FOOT. PT DENIES PAIN. CALLS APPROPRIATLY.
[2022-08-20 04:41] LABS: Hematocrit 31.3 % (37.0-53.0); Hemoglobin 10.3 g/dL (13.5-17.5); Mean Corpuscular HGB 29.3 pg (26.0-34.0); Mean Corpuscular HGB Conc 32.9 g/dL (31.5-36.5); Mean Corpuscular Volume 89 fL (80-100); Mean Platelet Volume 11.9 fL (9.1-12.4); Platelet Count 85 K/mm3 (150-400); RDW Coefficient Variation 13.5 % (11.7-14.2); RDW Standard Deviation 43.7 fL (35.1-46.3); Red Blood Cell Count 3.52 M/mm3 (4.30-5.90); White Blood Cell Count 5.37 K/mm3 (4.00-11.30)
[2022-08-20 04:59] LABS: Albumin, Blood 2.4 g/dL (3.4-5.0); Albumin/Globulin Ratio 0.5 (0.8-1.8); Bilirubin, Total 0.5 mg/dL (0.1-1.0); Calcium, Blood 9.9 mg/dL (8.5-10.1); Creatinine, Blood 0.9 mg/dL (0.60-1.20); Globulin, Blood 4.7 g/dL (2.2-4.0); Magnesium, Blood 1.6 mg/dL (1.6-2.4); Potassium, Blood 4.4 mmol/L (3.5-5.5); Total Protein, Blood 7.1 g/dL (6.4-8.2)
--- NOTE | 2022-08-20 06:39 | NUR ---
SHIFT SUMMARY AOX3. SLOW TO RESPOND. REPORTS 01/17 INFREQUENT BURNING PAIN IN R FOOT, MEDICATED 1x c SUBOXONE @HS & 1x c 30MG TORADOL THIS AM, PT ABLE TO REST COMFORTABLY. R FOOT WRAPPED IN AMARI WRAP, DRESSING C/D/I. FOUL ODOR NOTED UPON ASSESSING FOOT. +1 EDEMA RLE, FAINT PULSES, CAP REFIL <3. PLAN TO HAVE DEBRIDEMENT TODAY. PT HAS BEEN NPO SINCE MIDNIGHT. CALL LIGHT IN REACH.
--- NOTE | 2022-08-20 14:00 | NUR ---
VANCO TROUGH PENDING/DELAYED DUE TO LAB EQUIPTMENT MALFUNCTION.
--- NOTE | 2022-08-20 15:15 | NUR ---
TO DAY SURGERY VIA HOSPITAL BED
--- NOTE | 2022-08-20 16:17 | NUR ---
PRE-OP NOTE PT A&OX4, VSS, AMARI BANDAGE TO R FOOT CDI. NO ACUTE CONCERNS. Patient confirms NPO status and agrees with scheduled surgery. Pre-Op teaching done. Pt verbalizes understanding.
--- NOTE | 2022-08-20 17:43 | NUR ---
POST OP PT ARRIVES VIA HOSPITAL BED. ALERT & ORIENTED. INSTANTLY C/O FEELING HUNGRY & THIRSTY. RLE FLOATED. R FOOT WRAPPED w/ AMARI WRAP & GAUZE. NO DRNG OR SHADOWING NOTED. BILAT PP FAINT; UNCHANGED. VSS. DINNER & DRINK GIVEN AFTER BS CHECK.
[2022-08-20 20:04] LABS: Vancomycin, Trough 18.1 ug/mL (5.0-10.0)
--- NOTE | 2022-08-21 05:47 | NUR ---
SHIFT SUMMARY POD1 I&D ON R HEEL. R HEEL WITH MAARI WRAP REMAIN CDI OVERNIGHT. PT REPORTS MILD-MOD PAIN. PAIN MANAGED WITH TORADOL AND TYLENOL. SLEPT GOOD OVERNIGHT. PT ON 2L NASAL CANNULA FOR COMFORT. HX MERCEDES. O2 SATS WHEN AT SLEEP WAS 88-90%. VSS. DENIES CP AND SOB. IV VANCO ADMINSTERED AT THE BEG OF SHIFT. RLE ELEVATED. LUJAN CATH DRAINING, OFF FLOOR, GRAVITY. ADEQUATE URINE OUTPUT. TOLERATING PO INTAKE. DENIES N/V. AC/HS CBG. CALL LIGHT WITHIN REACH. WILL PROVIDE REPORT TO ONCOMING NURSE.
[2022-08-21 07:12] LABS: BASOPHILS PERCENT AUTO 0 % (0-2); EOSINOPHILS ABSOLUTE AUTO 0.01 K/mm3 (0.00-0.68); EOSINOPHILS PERCENT AUTO 0 % (0-6); Hematocrit 30.3 % (37.0-53.0); Hemoglobin 10.1 g/dL (13.5-17.5); IMMATURE GRAN ABSOLUTE AUTO 0.02 K/mm3 (0.00-0.10); IMMATURE GRAN PERCENT AUTO 0 % (0-1); LYMPHOCYTES ABSOLUTE AUTO 0.34 K/mm3 (0.84-5.20); LYMPHOCYTES PERCENT AUTO 6 % (21-46); MONOCYTES ABSOLUTE AUTO 0.16 K/mm3 (0.16-1.47); MONOCYTES PERCENT AUTO 3 % (4-13); Mean Corpuscular HGB 29.4 pg (26.0-34.0); Mean Corpuscular HGB Conc 33.3 g/dL (31.5-36.5); Mean Corpuscular Volume 88 fL (80-100); Mean Platelet Volume 11.8 fL (9.1-12.4); NEUTROPHILS ABSOLUTE AUTO 5.02 K/mm3 (1.96-9.15); NEUTROPHILS PERCENT AUTO 90 % (41-73); Platelet Count 89 K/mm3 (150-400); RDW Coefficient Variation 13.2 % (11.7-14.2); RDW Standard Deviation 42.9 fL (35.1-46.3); Red Blood Cell Count 3.43 M/mm3 (4.30-5.90); White Blood Cell Count 5.55 K/mm3 (4.00-11.30)
[2022-08-21 07:32] LABS: Calcium, Blood 9.3 mg/dL (8.5-10.1); Creatinine, Blood 1.06 mg/dL (0.60-1.20); Potassium, Blood 5.4 mmol/L (3.5-5.5)
--- NOTE | 2022-08-21 14:36 | NUR ---
RESTING IN BED, DENIES ANY NEED FOR PAIN MEDS AT THIS TIME, POST OP SHOE PLACED.
--- NOTE | 2022-08-21 16:06 | NUR ---
WOUND CARE WOUND PHOTOS AND ASSESSMENT IN HARD CHART. ORDERS IN [facility]. CALCANEOUS LATERAL FOOT CLEANSED WITH NS, CALCIUM ALGINATE TO WOUND BED COVERED WITH EXU-DRY ROLLED GAUZE, AMARI. CHRONOGRAPH OPERATOR WILL RETURN TO CANGE DRESSING TOMORROW
--- NOTE | 2022-08-21 17:42 | NUR ---
SUMMARY PT REPORTS MINIMAL PAIN T/O THE SHIFT, PT HASN'T VOIDED SINCE LUJAN CATH DC'D EARLIER TODAY, 374CC IN BLADDER PER BLADDER SCAN, 1L NS X1 INFUSING, R HEEL DSG CHANGED BY FAN BALANCER, R FOOT POST OP BOOT PLACED, WORKED WITH PT TODAY, PT OOB TO CHAIR W/ BLE'S ELEVATED, NO OTHER CHANGES THIS SHIFT.
[2022-08-22 06:15] LABS: BASOPHILS ABSOLUTE AUTO 0.01 K/mm3 (0.00-0.23); BASOPHILS PERCENT AUTO 0 % (0-2); EOSINOPHILS ABSOLUTE AUTO 0.05 K/mm3 (0.00-0.68); EOSINOPHILS PERCENT AUTO 1 % (0-6); Hematocrit 29.9 % (37.0-53.0); Hemoglobin 9.8 g/dL (13.5-17.5); IMMATURE GRAN ABSOLUTE AUTO 0.01 K/mm3 (0.00-0.10); IMMATURE GRAN PERCENT AUTO 0 % (0-1); LYMPHOCYTES ABSOLUTE AUTO 0.73 K/mm3 (0.84-5.20); LYMPHOCYTES PERCENT AUTO 16 % (21-46); MONOCYTES ABSOLUTE AUTO 0.35 K/mm3 (0.16-1.47); MONOCYTES PERCENT AUTO 8 % (4-13); Mean Corpuscular HGB Conc 32.8 g/dL (31.5-36.5); Mean Corpuscular Volume 89 fL (80-100); Mean Platelet Volume 11.8 fL (9.1-12.4); NEUTROPHILS ABSOLUTE AUTO 3.29 K/mm3 (1.96-9.15); NEUTROPHILS PERCENT AUTO 74 % (41-73); Platelet Count 87 K/mm3 (150-400); RDW Coefficient Variation 13.4 % (11.7-14.2); RDW Standard Deviation 43.5 fL (35.1-46.3); Red Blood Cell Count 3.38 M/mm3 (4.30-5.90); White Blood Cell Count 4.44 K/mm3 (4.00-11.30)
--- NOTE | 2022-08-22 06:28 | NUR ---
POD 2 S/P R HEEL I&D. PT VSS T/O NIGHT, SATS >90% ON RA. DRESSING CDI, ORHTO SHOE IN PLACE. PT DENIED CHANGES IN SENSATION, CAP REFILL WNL. PT MED FOR PAIN X1 W/REP RELIEF, PT DENIED ADDITIONAL NEED. PT BAILEE PO, DENIED N/V, IS VOIDING URINE W/O DIFFICULTY. PT SAT IN RECLINER ALL NIGHT, DECLINED OFFERS TO MOBILIZE. PT ENC TO SHIFT SELF WHILE IN CHAIR. PT USING CALL LIGHT FOR ASSISTANCE. PLAN TO MOIBLIZE W/PT.
[2022-08-22 06:40] LABS: Anion Gap 5 mmol/L (6-16); Blood Urea Nitrogen 35 mg/dL (8-24); Bun/Creatinine Ratio 35.3 (12.0-20.0); CO2, Blood 25 mmol/L (21-32); Calcium, Blood 9.7 mg/dL (8.5-10.1); Chloride, Blood 109 mmol/L (98-108); Creatinine, Blood 0.99 mg/dL (0.60-1.20); Glomerular Filtration Rate 80 (60-); Glucose, Blood 164 mg/dL (70-99); Sodium, Blood 139 mmol/L (136-145)
[2022-08-22 06:42] LABS: Vancomycin, Trough 21.5 ug/mL (5.0-10.0)
--- NOTE | 2022-08-22 16:27 | NUR ---
WOUND CARE WOUND VAC PLACED TO R LATERAL LE AND R CALCANEOUS. WOUNDS CLEANSED NS, DRAPED TRANSPARENT FILM, THREE PIECES BLACK FOAM APPLIED. VAC SET TO CONTINUOUS 120 MMHG. PT TOLERATED WELL. JORGITO RN WILL FOLLOW WHILE IN HOSPITAL
--- NOTE | 2022-08-22 19:39 | NUR ---
SUMMARY: PT IS POD2 R HEEL I&D. PT IS A/O, VSS, USING CALL LIGHT. WOUND VAC PLACED TO R HEEL TODAY, SEE BED WORKER NOTES. SCANT DRAINAGE PRESENT, WNL. HEEL PROTECTOR IN PLACE. PT TRANSFERED FROM BED TO RECLINER WITH THERAPY TODAY X2 SEE NOTES. THERAPY IS RECOMMENDING SNF PLACEMENT. PT IS VERY WEAK IN R LEG. PT REPORTED MINIMAL PAIN TODAY, MEDICATED PER EMAR. ENCOURAGED ELEVATION OF LEG. PT REPORTS NO BM SINCE BEFORE ADMITTED, THIS RN ASKED DR. LIANG FOR MORE BOWEL CARE ORDERS. PT GIVEN MOM. THIS RN HAD LONG CONVERSATIONS WITH PT'S AND DAUGHTER CONCERNING PT'S STATUS AND PLAN OF CARE. PT FAMILY IS CURRENTLY UP TO DATE AND AWARE OF PLAN TO DC TO SNF. SEE MANAGER ASSURANCE NOTES. NO ACUTE SAFETY CONCERNS. PT ENCOURAGED TO REPOSITION SELF TODAY, PT DID AMBULATE WITH THERAPY. PREVENTATIVE MEPILEX DRESSING PLACED TO COCCYX. REPORT PASSED TO EDGAR TAVERA RN.
[2022-08-23 06:34] LABS: BASOPHILS ABSOLUTE AUTO 0.02 K/mm3 (0.00-0.23); BASOPHILS PERCENT AUTO 0 % (0-2); EOSINOPHILS ABSOLUTE AUTO 0.11 K/mm3 (0.00-0.68); EOSINOPHILS PERCENT AUTO 2 % (0-6); Hematocrit 32.6 % (37.0-53.0); Hemoglobin 10.6 g/dL (13.5-17.5); IMMATURE GRAN ABSOLUTE AUTO 0.02 K/mm3 (0.00-0.10); IMMATURE GRAN PERCENT AUTO 0 % (0-1); LYMPHOCYTES ABSOLUTE AUTO 0.76 K/mm3 (0.84-5.20); LYMPHOCYTES PERCENT AUTO 16 % (21-46); MONOCYTES ABSOLUTE AUTO 0.48 K/mm3 (0.16-1.47); MONOCYTES PERCENT AUTO 10 % (4-13); Mean Corpuscular HGB 29.4 pg (26.0-34.0); Mean Corpuscular HGB Conc 32.5 g/dL (31.5-36.5); Mean Corpuscular Volume 90 fL (80-100); Mean Platelet Volume 11.9 fL (9.1-12.4); NEUTROPHILS ABSOLUTE AUTO 3.45 K/mm3 (1.96-9.15); NEUTROPHILS PERCENT AUTO 71 % (41-73); Platelet Count 102 K/mm3 (150-400); RDW Standard Deviation 45.9 fL (35.1-46.3); Red Blood Cell Count 3.61 M/mm3 (4.30-5.90); White Blood Cell Count 4.84 K/mm3 (4.00-11.30)
--- NOTE | 2022-08-23 06:35 | NUR ---
POD 3 S/P I&D OF RIGHT HEEL. PT VSS T/O NIGHT. LUNGS DIM, SATS >90% ON RA, PT DENIED NEED FOR RT TX. WOUND VAC IN PLACE W/SEAL AND SX INTACT; SCANT SS DRNG NOTED. PT DENIED CHANGES IN SENSATION, CAP REFILL WNL. PT MED FOR PAIN X1 W/REP RELIEF. PT VOIDING URINE W/O DIFFICULTY. PT REPOSITIONING SELF IN BED, BLE ELEVATED. PT USING CALL LIGHT FOR ASSISTANCE. PLAN TO D/C TO SNF.
[2022-08-23 06:50] LABS: Bun/Creatinine Ratio 29.7 (12.0-20.0); Creatinine, Blood 1.11 mg/dL (0.60-1.20); Potassium, Blood 5.2 mmol/L (3.5-5.5)
--- NOTE | 2022-08-23 10:06 | NUR ---
WOUND CARE SPOKE WITH DR. FONSECA REGARDING CONCERN WITH WOUND BED AND NEED FOR FURTHER DEBRIDEMENT. HE REPORTS HE WILL REASSESS PT TODAY AND POSSIBLY DO A BEDSIDE DEBRIDEMENT. DISCUSSED PT RECOMMENDATION FOR PT TO BE WEIGHT BEARING FOR TRANSFERS ONLY, HE IS IN AGREEMENT AND REPORTS HE WILL PUT IN ORDERS NOW
--- NOTE | 2022-08-23 19:58 | NUR ---
SHIFT SUMMARY POD3 R FOOT I&D, PODIETRY PERFORMED BEDSIDE I&D AGAIN TODAY AND REPACKED WITH IODOFORM AND ABD PADS, PER PODIETRY THE WOUND VAC CAN BE REPLACED TIME ALLOWING. THIS WAS ATTEMPTED BY THIS RN AND NOC RN AND PT WAS STILL BLEEDING WHEN THE AMARI BANDAGE WAS REMOVED SO A NEW ABD PAD AND PACKING WAS REPLACED THAT WAS COVERED WITH COMPRESSION TAPE TO APPLY PRESSURE TO THE HEEL TO ATTEMPT TO STOP/SLOW THE BLEEDING. WOUND CENTER RN TO BE NOTIFIED IN AM TO ASSIST WITH NEW [place] PLACEMENT. NO OTHER EVENTS THIS SHIFT, CALL LIGHT IN REACH, REPORT GIVEN TO NOC RN.
--- NOTE | 2022-08-24 04:11 | NUR ---
POD4 I&D OF RIGHT FOOT. PRESSURE DRESSING IN PLACE, PLAN TO REINFORCE IF NEEDED. VSS. PT SLEPT WELL T/O THE NIGHT. MEDICATED FOR PAIN WTIH SUBOXONE. PT TOLLERATING PO INTAKE W/O N/V. NO STOOL NOTED, MEDICATED PER EMAR. VOIDING W/O DIFFICULTY. PLAN FOR DR TO EVALUATE FOOT WOUND TODAY AND POSSIBLY HAVE A WOUND VAC PLACED. NO ACUTE EVENTS NOTED. THE PATIENT IS CURRENTLY SLEEPING, IN NO DISTRESS, CALL LIGHT IN REACH
[2022-08-24 05:16] LABS: BASOPHILS ABSOLUTE AUTO 0.03 K/mm3 (0.00-0.23); BASOPHILS PERCENT AUTO 1 % (0-2); EOSINOPHILS ABSOLUTE AUTO 0.14 K/mm3 (0.00-0.68); EOSINOPHILS PERCENT AUTO 3 % (0-6); Hematocrit 30.9 % (37.0-53.0); Hemoglobin 9.9 g/dL (13.5-17.5); IMMATURE GRAN ABSOLUTE AUTO 0.03 K/mm3 (0.00-0.10); IMMATURE GRAN PERCENT AUTO 1 % (0-1); LYMPHOCYTES PERCENT AUTO 16 % (21-46); MONOCYTES ABSOLUTE AUTO 0.54 K/mm3 (0.16-1.47); MONOCYTES PERCENT AUTO 11 % (4-13); Mean Corpuscular Volume 91 fL (80-100); Mean Platelet Volume 11.9 fL (9.1-12.4); NEUTROPHILS PERCENT AUTO 69 % (41-73); Platelet Count 110 K/mm3 (150-400); RDW Coefficient Variation 13.9 % (11.7-14.2); RDW Standard Deviation 45.5 fL (35.1-46.3); Red Blood Cell Count 3.41 M/mm3 (4.30-5.90); White Blood Cell Count 5.04 K/mm3 (4.00-11.30)
[2022-08-24 06:18] LABS: Calcium, Blood 9.7 mg/dL (8.5-10.1); Creatinine, Blood 1.24 mg/dL (0.60-1.20); Potassium, Blood 4.9 mmol/L (3.5-5.5)
[2022-08-24 12:08] LABS: Vancomycin, Trough 17.2 ug/mL (5.0-10.0)
[2022-08-24 13:54] LABS: SARS-Cov-2 (COVID-19) PCR, MMC NEGATIVE (NEGATIVE)
--- NOTE | 2022-08-24 16:08 | NUR ---
DISCHARGE SUMMARY PT PICKED UP BY AMBULANCE SERVICE TO BE TAKEN TO [facility]. PLAN FOR REHAB WAS DISCUSSED WITH THE PATIENT PRIOR TO BEING PICKED UP, IV ACCESS WAS REMOVED WELL. PT TOOK ALL PERSONAL POSSESSIONS WITH HIM AT TIME OF DEPARTURE. CALL PLACED TO [facility] AND REPORT WAS GIVEN TO USAMA.
== END 2022-08-24 15:33 | DRG 853 ==
LOC: ER 14:01 → SURS 18:02 → PCU 18:02 → SURS 08-19 15:23
PROVIDERS: Emergency Medicine; Family Medicine; Pharmacist; Podiatrist; ADMIT Student in an Organized Health Care Education/Training Program
PROC: 3E03329 Introduction of Other Anti-infective into Peripheral Vein, Percutaneous Approach (ICD-10-PCS; 2022-08-17)
PROC: 0JBQ0ZZ Excision of Right Foot Subcutaneous Tissue and Fascia, Open Approach (ICD-10-PCS; principal; 2022-08-20 16:00)
DX: A41.02 Sepsis due to Methicillin resistant Staphylococcus aureus (principal); G93.41 Metabolic encephalopathy; L03.115 Cellulitis of right lower limb; I50.32 Chronic diastolic (congestive) heart failure; E87.1 Hypo-osmolality and hyponatremia; E11.52 Type 2 diabetes mellitus with diabetic peripheral angiopathy with gangrene; I96 Gangrene, not elsewhere classified; L02.415 Cutaneous abscess of right lower limb; Z20.822 Contact with and (suspected) exposure to COVID-19; I11.0 Hypertensive heart disease with heart failure; E83.42 Hypomagnesemia; K59.00 Constipation, unspecified; R65.20 Severe sepsis without septic shock; E11.621 Type 2 diabetes mellitus with foot ulcer; K21.9 Gastro-esophageal reflux disease without esophagitis; G47.33 Obstructive sleep apnea (adult) (pediatric); F17.210 Nicotine dependence, cigarettes, uncomplicated; L97.512 Non-pressure chronic ulcer of other part of right foot with fat layer exposed; E11.42 Type 2 diabetes mellitus with diabetic polyneuropathy; G89.29 Other chronic pain; I25.2 Old myocardial infarction; Z99.89 Dependence on other enabling machines and devices; Z86.73 Personal history of transient ischemic attack (TIA), and cerebral infarction without residual deficits; Z90.89 Acquired absence of other organs; Z98.890 Other specified postprocedural states; Z88.0 Allergy status to penicillin; Z88.8 Allergy status to other drugs, medicaments and biological substances; Z91.013 Allergy to seafood; Z79.899 Other long term (current) drug therapy
CPT/HCPCS: 36415; 51702; 71045; 73620; 80048; 80053; 80202; 81001; 82140; 82947; 83036; 83605; 83735; 84100; 85025; 85027; 85651; 86141; 87040; 87071; 87075; 87076; 87077; 87185; 87186; 87205; 93005; 93010; 94640; 94664; 94760; 96361-59; 96365-59; 97110; 97116; 97140; 97140-CQ; 97162; 97530; 99285-25; A9270; J1100; J1650; J1815; J1885; J1956; J2405; J2704; J2795; J3010; J3370; J3475; J7030; J7050; J7120; U0004

== ENCOUNTER 2022-08-28 17:12 | Inpatient (IN) | payer MEDICARE ==
[~2022-08-28] VITALS: Ht 185.4 cm; Wt 98.2 kg
[2022-08-28] MEDS ORDERED: ALBU90OI INH (17:32)
[2022-08-28] MEDS ORDERED: SULTRIDS PO (17:33)
[2022-08-28] MEDS ORDERED: CARV3.125 PO (17:34)
[2022-08-28 17:36] LABS: BASOPHILS ABSOLUTE AUTO 0.02 K/mm3 (0.00-0.23); BASOPHILS PERCENT AUTO 0 % (0-2); EOSINOPHILS ABSOLUTE AUTO 0.25 K/mm3 (0.00-0.68); EOSINOPHILS PERCENT AUTO 3 % (0-6); Hematocrit 30.7 % (37.0-53.0); Hemoglobin 9.8 g/dL (13.5-17.5); IMMATURE GRAN ABSOLUTE AUTO 0.03 K/mm3 (0.00-0.10); IMMATURE GRAN PERCENT AUTO 0 % (0-1); LYMPHOCYTES ABSOLUTE AUTO 0.92 K/mm3 (0.84-5.20); LYMPHOCYTES PERCENT AUTO 11 % (21-46); MONOCYTES ABSOLUTE AUTO 0.57 K/mm3 (0.16-1.47); MONOCYTES PERCENT AUTO 7 % (4-13); Mean Corpuscular HGB Conc 31.9 g/dL (31.5-36.5); Mean Corpuscular Volume 91 fL (80-100); Mean Platelet Volume 11.9 fL (9.1-12.4); NEUTROPHILS ABSOLUTE AUTO 6.87 K/mm3 (1.96-9.15); NEUTROPHILS PERCENT AUTO 79 % (41-73); Platelet Count 154 K/mm3 (150-400); RDW Coefficient Variation 14.7 % (11.7-14.2); RDW Standard Deviation 48.9 fL (35.1-46.3); Red Blood Cell Count 3.38 M/mm3 (4.30-5.90); White Blood Cell Count 8.66 K/mm3 (4.00-11.30)
[2022-08-28] MEDS ORDERED: CLIN150 PO (17:37)
[2022-08-28] MEDS ORDERED: INSULIN GL100 UNIT/3 SC (17:38)
[2022-08-28] MEDS ORDERED: NICODERM CQ TOP (17:41)
[2022-08-28] MEDS ORDERED: BUPRENORPHIN-N1 EAC1 SL (17:41)
[2022-08-28] MEDS ORDERED: VISBIOME 112.51 EACH PO (17:43)
[2022-08-28 18:14] LABS: Albumin, Blood 2.9 g/dL (3.4-5.0); Albumin/Globulin Ratio 0.6 (0.8-1.8); Bilirubin, Total 0.4 mg/dL (0.1-1.0); Bun/Creatinine Ratio 21.8 (12.0-20.0); Calcium, Blood 9.6 mg/dL (8.5-10.1); Creatinine, Blood 4.58 mg/dL (0.60-1.20); Globulin, Blood 4.9 g/dL (2.2-4.0); Potassium, Blood 6.7 mmol/L (3.5-5.5); Total Protein, Blood 7.8 g/dL (6.4-8.2)
[2022-08-28 23:18] LABS: Source, Urine Straight Cath
--- NOTE | 2022-08-28 23:18 | NUR ---
ARRIVAL TO [facility] PT ARRIVED TO [facility] AT APPROXIMATELY 2030. PT SLID OVER FROM ER [facility] TO HOSPITAL BED BY 4 CLINICAL STAFF MEMBERS. PT ARRIVED ON RA, SpO2> 92% WHILE AWAKE, DENIES SOB. PT FELL ASLEEP WHILE THIS RN STILL IN ROOM, SpO2 DROPPED TO 88%, PT WITH Hx OF SLEEP APNEA, PLACED PT ON 2L VIA NC WHILE ASLEEP TO KEEP SpO2> 92%. BP STABLE, SINUS 60-70's, DENIES CP/PRESSURE. PT A&O ONLY TO SELF, PLACE, AND PERSON. PT DOES NOT KNOW WHY HE GOT LAB WORK DONE TODAY, WHY HE IS AT THE HOSPITAL, WHAT MEDIACATIONS HE TAKE, WHERE HE CAME FROM, OR WHERE HE LIVES. WHEN ASSESSING PT's SKIN, THIS RN ASKED WHAT WAS UNDER THE DRESSING ON HIS R HEEL, PT STATED THAT IT WAS A BLISTER. AFTER REMOVING THE DRESSING, THIS RN ASSESSED THAT THE WOUND IS A SIGNIFICANT PRESSURE ULCER, WOUND CARE PROVIDED, DRESSING CHANGED, WOUND CONSULT INPLACE. PT STATES THAT HE CANNOT HEEL THE WOUND. ANVILSMITH STATED THAT SHE HAD JUST CHANGED PT's ATTENDS PRIOR TO BRINGING THEM TO THE ROOM D/T PT HAVING AN INCONTINENT VOID. ATTENDS IN PLACE. ORIENTED PT TO CALL LIGHT/UNIT, BED IN LOWEST POSITION, BED ALARM ON.
[2022-08-28 23:25] LABS: Bilirubin, Urine Neg (Neg); Blood, Urine Neg (Neg); Glucose Qualitative, Urine Neg (Neg); Ketones, Urine Neg (Neg); Leukocyte Esterase, Urine Neg (Neg); Nitrite, Urine Neg (Neg); Protein, Urine Neg (Neg); Urobilinogen, Urine NORM (Normal)
[2022-08-28 23:48] LABS: Appearance, Urine Hazy (Clear); Bacteria Rare /hpf; Calcium Oxalate Crystals Few /hpf; Color, Urine Yellow (P-Yellow); Red Blood Cells, Urine 0-2 /hpf (0-2); Squamous Epithelial Cells Not Seen /hpf (Few); White Blood Cells, Urine 0-2 /hpf (0-5); Yeast/Fungi Urine Rare /hpf
[2022-08-29 02:26] LABS: BASOPHILS ABSOLUTE AUTO 0.01 K/mm3 (0.00-0.23); BASOPHILS PERCENT AUTO 0 % (0-2); EOSINOPHILS ABSOLUTE AUTO 0.18 K/mm3 (0.00-0.68); EOSINOPHILS PERCENT AUTO 3 % (0-6); Hematocrit 27.3 % (37.0-53.0); Hemoglobin 8.7 g/dL (13.5-17.5); IMMATURE GRAN ABSOLUTE AUTO 0.03 K/mm3 (0.00-0.10); IMMATURE GRAN PERCENT AUTO 1 % (0-1); LYMPHOCYTES ABSOLUTE AUTO 1.03 K/mm3 (0.84-5.20); LYMPHOCYTES PERCENT AUTO 18 % (21-46); MONOCYTES ABSOLUTE AUTO 0.56 K/mm3 (0.16-1.47); MONOCYTES PERCENT AUTO 10 % (4-13); Mean Corpuscular HGB 29.3 pg (26.0-34.0); Mean Corpuscular HGB Conc 31.9 g/dL (31.5-36.5); Mean Corpuscular Volume 92 fL (80-100); Mean Platelet Volume 11.8 fL (9.1-12.4); NEUTROPHILS ABSOLUTE AUTO 4.05 K/mm3 (1.96-9.15); NEUTROPHILS PERCENT AUTO 69 % (41-73); Platelet Count 114 K/mm3 (150-400); RDW Coefficient Variation 14.8 % (11.7-14.2); RDW Standard Deviation 49.2 fL (35.1-46.3); Red Blood Cell Count 2.97 M/mm3 (4.30-5.90); White Blood Cell Count 5.86 K/mm3 (4.00-11.30)
[2022-08-29 02:41] LABS: Magnesium, Blood 2.7 mg/dL (1.6-2.4)
[2022-08-29 02:54] LABS: Bun/Creatinine Ratio 25.5 (12.0-20.0); Calcium, Blood 9.5 mg/dL (8.5-10.1); Creatinine, Blood 3.81 mg/dL (0.60-1.20)
--- NOTE | 2022-08-29 04:35 | NUR ---
SHIFT SUMMARY PT A&O ONLY TO SELF, PLACE, AND PERSON. PT DOES NOT KNOW WHY HE GOT LAB WORK DONE TODAY, WHY HE IS AT THE HOSPITAL, WHAT MEDIACATIONS HE TAKE, WHERE HE CAME FROM, OR WHERE HE LIVES. SpO2> 92% ON RA WHILE AWAKE, DENIES SOB. RT SET UP CPAP FOR PT TO WEAR WHILE SLEEPING, SpO2> 92% WHEN WEARING CPAP WHILE ASLEEP. BP STABLE, SINUS 60-70's, DENIES CP/PRESSURE. PT INCONTINENT OF URINE, ATTENDS IN PLACE, NO BM YET THIS SHIFT, AT THIS TIME. NOTIFIED PHYSICIAN OF K VALUE, ORDERS PLACED. NO OTHER EVENTS, WILL REPORT TO ONCOMING RN.
[2022-08-29 09:50] LABS: Albumin, Blood 2.6 g/dL (3.4-5.0); Anion Gap 5 mmol/L (6-16); Blood Urea Nitrogen 86 mg/dL (8-24); Bun/Creatinine Ratio 25.7 (12.0-20.0); CO2, Blood 22 mmol/L (21-32); Calcium, Blood 9.7 mg/dL (8.5-10.1); Chloride, Blood 109 mmol/L (98-108); Creatinine, Blood 3.34 mg/dL (0.60-1.20); Glomerular Filtration Rate 19 (60-); Glucose, Blood 180 mg/dL (70-99); Phosphorus, Blood 4.7 mg/dL (2.5-4.9); Potassium, Blood 5.8 mmol/L (3.5-5.5); Sodium, Blood 136 mmol/L (136-145)
--- NOTE | 2022-08-29 11:19 | NUR ---
WOUND CARE PT IS KNOWN TO THIS RN FROM AND PREVIOUS ADMISSIONS. R PLANTAR/LATERAL CALCANEOUS SURGICALLY DEBRIDED LAST ADMIT BY DR. FONSECA. WOUND PHOTO/ ASSESSMENTS IN HARD CHART. WOUNDS CLEANSED WITH DERMAL WOUND, RINSED NS, CALCIUM ALGINATE TO WOUND BEDS WITH EDGES TUCKED INTO 2CM TUNNEL CONNECTING WOUNDS. COVERED WITH ABD/ROLLED GAUZE. FLOAT HEEL WITH EGGCRATE BOOT. PT AT HIGH RISK FOR BREAKDOWN. PRIMARY RN TO PLACE EGGCRATE OVER MATTRESS. RN WILL RETURN TOMORROW
[2022-08-29 16:35] LABS: Albumin, Blood 2.6 g/dL (3.4-5.0); Anion Gap 3 mmol/L (6-16); Blood Urea Nitrogen 79 mg/dL (8-24); Bun/Creatinine Ratio 25.6 (12.0-20.0); CO2, Blood 22 mmol/L (21-32); Calcium, Blood 9.4 mg/dL (8.5-10.1); Chloride, Blood 112 mmol/L (98-108); Creatinine, Blood 3.09 mg/dL (0.60-1.20); Glomerular Filtration Rate 21 (60-); Glucose, Blood 180 mg/dL (70-99); Phosphorus, Blood 4.1 mg/dL (2.5-4.9); Potassium, Blood 6.7 mmol/L (3.5-5.5); Sodium, Blood 137 mmol/L (136-145)
[2022-08-29 17:22] LABS: Albumin, Blood 2.6 g/dL (3.4-5.0); Anion Gap 2 mmol/L (6-16); Blood Urea Nitrogen 79 mg/dL (8-24); Bun/Creatinine Ratio 26.4 (12.0-20.0); CO2, Blood 21 mmol/L (21-32); Calcium, Blood 9.7 mg/dL (8.5-10.1); Chloride, Blood 113 mmol/L (98-108); Creatinine, Blood 2.99 mg/dL (0.60-1.20); Glomerular Filtration Rate 21 (60-); Glucose, Blood 143 mg/dL (70-99); Phosphorus, Blood 3.9 mg/dL (2.5-4.9); Potassium, Blood 6.9 mmol/L (3.5-5.5); Sodium, Blood 136 mmol/L (136-145)
--- NOTE | 2022-08-29 18:17 | NUR ---
shift summary PT ALERT, ORIENTED TO SELF, SITUATION. FORGETFUL. DIFFICULTY WAKING PT WHEN PT IS SLEEPING. SP02>90% ON RA, CPAP WHILE SLEEPING. TELEMETRY SHOWS NSR, HR 70'S-80'S. VSS. PT USED URINAL TO VOID MULTIPLE TIMES DURING SHIFT. 1 INCONTINENT AND 1 CONTINENT BM ON BED MUSTAFA, BOTH DARK BROWN, SOFT/LIQUID. LAB CALLED TO NOTIFY OF CRITICAL RESULT: K+ 6.7. CALL PLACED TO MD HOOD. MD HOOD WITH ORDERS, SEE EMAR. MEDICATIONS GIVEN PER EMAR, RT CALLED FOR ONE TIME NEB TX. FLUIDS INFUSING PER EMAR. NEW IV IN R FOREARM. WOUND CENTER NURSE IN ROOM TO CONSULT AND DRESS WOUND, SEE PICS IN CHART. FOAM EGG CRATE PLACED UNDER PT TO PREVENT PRESSURE ULCERS. REPOSITIONED Q2H. MULTIPLE CALLS ANSWERED TODAY FROM DAUGHTER/SON/ ASKING FOR UPDATES. PT IN ROOM EATING DINNER. CALL LIGHT IN REACH.
--- NOTE | 2022-08-30 04:29 | NUR ---
SHIFT SUMMARY PT A&O ONLY TO SELF, PLACE, AND PERSON. PT KNOWS THAT HIS LAB VALUES ARE ABNORMAL BUT DOES NOT KNOW WHY HE IS AT THE HOSPITAL, WHAT MEDIACATIONS HE TAKE, WHERE HE CAME FROM, OR WHERE HE LIVES. SpO2> 92% ON RA WHILE AWAKE, DENIES SOB. RT SET UP CPAP FOR PT TO WEAR WHILE SLEEPING, SpO2> 92% WHEN WEARING CPAP WHILE ASLEEP. BP STABLE, SINUS 60-70's, DENIES CP/PRESSURE. PT CALLED TO USE URINAL FOR VOIDS, ATTENDS IN PLACE, NO BM THIS SHIFT. NO OTHER EVENTS, WILL REPORT TO ONCOMING RN.
[2022-08-30 04:57] LABS: Albumin, Blood 2.6 g/dL (3.4-5.0); Anion Gap 0 mmol/L (6-16); Blood Urea Nitrogen 66 mg/dL (8-24); Bun/Creatinine Ratio 26.8 (12.0-20.0); CO2, Blood 23 mmol/L (21-32); Calcium, Blood 9.8 mg/dL (8.5-10.1); Chloride, Blood 112 mmol/L (98-108); Creatinine, Blood 2.46 mg/dL (0.60-1.20); Glomerular Filtration Rate 27 (60-); Glucose, Blood 145 mg/dL (70-99); Phosphorus, Blood 3.9 mg/dL (2.5-4.9); Potassium, Blood 6.3 mmol/L (3.5-5.5); Sodium, Blood 135 mmol/L (136-145)
[2022-08-30 08:42] LABS: Bun/Creatinine Ratio 24.9 (12.0-20.0); Calcium, Blood 10.1 mg/dL (8.5-10.1); Creatinine, Blood 2.33 mg/dL (0.60-1.20); Potassium, Blood 5.7 mmol/L (3.5-5.5)
--- NOTE | 2022-08-30 15:07 | NUR ---
WOUND CARE R CALCANEOUS SHOWING SIGNS OF INCREASED PRESSURE. PRIMARY RN AND ENVIRONMENTAL QUALITY ANALYST ABLE TO ADJUST BED. FOOT IS NO LONGER TOUCHING THE END OF BED AND PT IS ABLE TO PROPERLY FLOAT HEEL. PRIMARY DRESSING CHANGED TO MEDIHONEY TO PROMOTE AUTOLYTIC DEBRIDEMENT. WC RN WILL RETURN TOMORROW TO ASSESS EFFICIENCY. PT TOLERATED WELL
--- NOTE | 2022-08-30 18:01 | NUR ---
SHIFT SUMMARY PT ALERT, COOPERATIVE, FORGETFUL. SP02>90% ON RA, CPAP AT NOC. TELEMETRY SHOWS NSR W/ PVCS, HR MOSTLY 60'S. TELEMETRY CALLED THIS EVENING TO NOTIFY OF SHORT RUN OF BIGEMINY, SEE STRIP IN CHART. PT USED URINAL TO VOID. MULTIPLE LIQUID BROWN BM'S IN BEDPAN/BRIEF. DENIES PAIN. REPOSITIONED Q2H. WOUND CLINIC RN TO ROOM TO REDRESS R FOOT, FOOT ELEVATED, MATTRESS ELEVATED TO PREVENT FRICTION W/ FOOT BOARD. NS INFUSING PER EMAR. MD HOOD IN ROOM TO ASSESS PT. PT STATED "SHE WAS A RAY OF SUNSHINE IN MY DAY" AND THAT HE UNDERSTOOD WHAT WAS HAPPENING MUCH BETTER AFTER SPEAKING WITH MD HOOD TODAY. PT'S IN ROOM THIS AFTERNOON W/ WOUND CLINIC NURSE FOR UPDATE. PT EATING DINNER IN ROOM. CALL LIGHT IN REACH.
--- NOTE | 2022-08-31 06:02 | NUR ---
SHIFT SUMMARY OVERNIGHT, PATIENT ALERT AND ORIENTED X3-4. PATIENT HAS DIFFICULTY REMEMBERING THE CIRCUMSTANCES THAT BROUGHT HIM TO THE HOSPITAL, BUT ABLE TO REORIENT. WAKES UP AND IS VERY FORGETFUL FOR A SHORT PERIOD BEFORE REORIENTING. MONITOR SHOWING SR, HR 60S. SBP 130-160S. AFEBRILE. RA, SATS >94% ON CONTINUOUS PULSE OX. REFUSED CPAP. X1 LOOSE INCONTINENT BM. TOLERATING MECH SOFT DIET. PATIENT HAS URGENCY WITH URINATION, AND IS INTERMITTENTLY INCONTINENT DUE TO ONLY HAVING A FEW SECONDS BETWEEN REALIZING HE HAS TO PEE AND INITIATING HIS STREAM. OF THE VOIDS MEASURED, PATIENT HAD >1L URINE OUTPUT OVERNIGHT. GROIN/PERINEUM/GLUTEAL FOLDS HAVE MOISTURE ASSOCIATED DERMATITIS; CLEANSING AND ATTEMPTING TO KEEP DRY. RIGHT HEEL WOUND CHANGED ON 08/30 BY WOUND NURSE; WRAPPED IN GAUZE AND IN HEEL PROTECTOR; RLE ELEVATED AT ALL TIMES. MAINTENANCE IVF INFUSING. AWAITING AM LA RESULTS TO ASSESS KIDNEY FUNCTION AND POTASSIUM. CALL LIGHT WITHIN REACH. WILL CONTINUE TO MONITOR.
[2022-08-31 06:38] LABS: Albumin, Blood 2.7 g/dL (3.4-5.0); Anion Gap 3 mmol/L (6-16); Blood Urea Nitrogen 45 mg/dL (8-24); Bun/Creatinine Ratio 24.6 (12.0-20.0); CO2, Blood 20 mmol/L (21-32); Calcium, Blood 9.2 mg/dL (8.5-10.1); Chloride, Blood 113 mmol/L (98-108); Creatinine, Blood 1.83 mg/dL (0.60-1.20); Glomerular Filtration Rate 38 (60-); Glucose, Blood 133 mg/dL (70-99); Phosphorus, Blood 3.1 mg/dL (2.5-4.9); Potassium, Blood 5.7 mmol/L (3.5-5.5); Sodium, Blood 136 mmol/L (136-145)
--- NOTE | 2022-08-31 14:03 | NUR ---
WOUND CARE DRESSING CHANGED PER ORDER. SLOUGH/ESCHAR PRESENT. DISCUSSED PODIATRY CONSULT PT DECLINED AND REPORTS THAT HE WOULD RATHER FOLLOW UP WITH WITH DEBRIDEMENT ON DC. PT IS AN ESTABLISHED PT AT [facility] SPOKE WITH BENEFITS DIRECTOR TO INCLUDE FOLLOW UP WITH WC ON HIS DISCHARGE ORDERS FOR SNF.
--- NOTE | 2022-08-31 17:38 | NUR ---
REPORT CALLED TO MEDICAL FLOOR RN. PT TO BE TRANSFERED WITH NS INFUSING AT 100ML/HR. PT TO BE TRANSPORTED VIA GURNEY HE IS NON-WEIGHT BEARING. DNEIES CP AND SOB. VSS. NADN. PT AWARE OF TRANSFER
--- NOTE | 2022-08-31 18:50 | NUR ---
TRANSFER PATIENT TRANSFERED FROM PCU AT 1840. PATIENT SETTLED INTO ROOM. PATIENT ORIENTED TO CALL LIGHT AND TV CONTROL. PATIENT A&O X3, FORGETFUL. PATIENT DOES NOT KNOW WHY HE IS HERE. LINES FLUSH. POWERGLIDE TO JUAN JOSE DOES NOT DRAW. DRESSING TO WOUND ON RIGHT HEEL C/D/I. PATIENT DENIES PAIN, NAUSEA, AND SHORTNESS OF BREATH. 2 RN SKIN CHECK NOT COMPLETED DUE TO TIME OF SHIFT CHANGE, WILL PASS ONTO NIGHTSHIFT.
[2022-08-31 21:02] LABS: Hematocrit 25.3 % (37.0-53.0); Hemoglobin 8.2 g/dL (13.5-17.5); Mean Corpuscular HGB 29.3 pg (26.0-34.0); Mean Corpuscular HGB Conc 32.4 g/dL (31.5-36.5); Mean Corpuscular Volume 90 fL (80-100); Mean Platelet Volume 11.4 fL (9.1-12.4); Platelet Count 97 K/mm3 (150-400); RDW Coefficient Variation 14.2 % (11.7-14.2); RDW Standard Deviation 46.2 fL (35.1-46.3); White Blood Cell Count 3.27 K/mm3 (4.00-11.30)
[2022-09-01 06:18] LABS: BASOPHILS ABSOLUTE AUTO 0.02 K/mm3 (0.00-0.23); BASOPHILS PERCENT AUTO 1 % (0-2); EOSINOPHILS ABSOLUTE AUTO 0.14 K/mm3 (0.00-0.68); EOSINOPHILS PERCENT AUTO 5 % (0-6); Hematocrit 25.1 % (37.0-53.0); Hemoglobin 8.1 g/dL (13.5-17.5); IMMATURE GRAN ABSOLUTE AUTO 0.01 K/mm3 (0.00-0.10); IMMATURE GRAN PERCENT AUTO 0 % (0-1); LYMPHOCYTES PERCENT AUTO 25 % (21-46); MONOCYTES ABSOLUTE AUTO 0.18 K/mm3 (0.16-1.47); MONOCYTES PERCENT AUTO 6 % (4-13); Mean Corpuscular HGB 29.1 pg (26.0-34.0); Mean Corpuscular HGB Conc 32.3 g/dL (31.5-36.5); Mean Corpuscular Volume 90 fL (80-100); Mean Platelet Volume 11.3 fL (9.1-12.4); NEUTROPHILS PERCENT AUTO 63 % (41-73); Platelet Count 95 K/mm3 (150-400); RDW Coefficient Variation 14.2 % (11.7-14.2); RDW Standard Deviation 47.1 fL (35.1-46.3); Red Blood Cell Count 2.78 M/mm3 (4.30-5.90); White Blood Cell Count 2.85 K/mm3 (4.00-11.30)
[2022-09-01 06:42] LABS: Albumin, Blood 2.5 g/dL (3.4-5.0); Anion Gap 3 mmol/L (6-16); Blood Urea Nitrogen 27 mg/dL (8-24); CO2, Blood 20 mmol/L (21-32); Chloride, Blood 116 mmol/L (98-108); Glomerular Filtration Rate 49 (60-); Glucose, Blood 128 mg/dL (70-99); Phosphorus, Blood 3.1 mg/dL (2.5-4.9); Potassium, Blood 5.2 mmol/L (3.5-5.5); Sodium, Blood 139 mmol/L (136-145)
--- NOTE | 2022-09-01 06:44 | NUR ---
PATIENT SLEPT WELL THROUGH THE NIGHT, CALLED RE 2X COFFEE GROUND STOOLS AND H/H TRENDING DOWN. IV PROTONIX, CBCs ORDERED, AND HEP HELD. HTN BUT OTHERWISE VSS. NO NEW ODERS THERE. SITS UP AT BEDSIDE TO USE URINAL, AND INC OF STOOL. IV INFUSING NS. NO OTHER ISSUES TO REPORT.
--- NOTE | 2022-09-01 17:58 | NUR ---
SHIFT SUMMARY: PT A&O X3-4. PT HAS BEEN PLEASANT AND COOPERATIVE THIS SHIFT. PT HAS NOT NEEDED INSULIN COVERAGE FOR BREAKFAST OR DINNER. LONG ACTING GIVEN THIS EVENING. PT HAS NOT HAD BM THIS SHIFT. HAVE NOT BEEN ABLE TO OBTAIN GUAIAC STOOL SAMPLE. WILL REPORT THIS TO UTILITY ASSEMBLER. WOUND CARE PERFORMED ON PT RIGHT HEEL. HEEL SATURATED W/ NO PAIN. PT UPSET THIS EVENING DUE TO CONSISTENCY OF MECHANICAL DIET. NS RUNNING @ 100/HR. PG PATENT. RFA IV TAKEN OUT. CALL LIGHT IN REACH. BED IN LOWEST POSITION. WILL CONTINUE TO MONITOR.
--- NOTE | 2022-09-02 03:01 | NUR ---
SHIFT SUMMARY NOC PT A/O X 3-4. PLEASANT AND COOPERATIVE WITH CARE. PT HAD C/O [facility] SOFT DIET AND HOSPITALIST NOTIFIED OF REQUEST AND GAVE INSTRUCTIONS TO PASS ON TO DAY RN TO TALK TO ROUNDING PROVIDER. PT ON TELE RUNNING SINUS RHYTHM @ 68 BPM. PT HAS NS INFUSING @ 100 MLS/HR. PT WOUND DRESSING ON R FT IS C/D/I WILL CONTINUE TO CHECK IF DRESSING NEEDS TO BE CHANGED. PT PLAN IS TO RETURN TO [facility] ON 09/03/22 BECAUSE THEY DO NOT TAKE RESIDENTS BACK ON WEEKENDS. PT HAS BEEN USING BEDSIDE URINAL IDEPENDENTLY DURING SHIFT AND HAS HAD GOOD OUTPUT. PT IS CURRENTLY RESTING WITH BED IN LOWEST POSITION, AND CALL LIGHT WITHIN REACH.
[2022-09-02 04:35] LABS: Hematocrit 24.6 % (37.0-53.0); Mean Corpuscular HGB 29.4 pg (26.0-34.0); Mean Corpuscular HGB Conc 32.5 g/dL (31.5-36.5); Mean Corpuscular Volume 90 fL (80-100); Mean Platelet Volume 11.1 fL (9.1-12.4); Platelet Count 88 K/mm3 (150-400); RDW Coefficient Variation 14.5 % (11.7-14.2); RDW Standard Deviation 47.4 fL (35.1-46.3); RETICULOCYTE COUNT PERCENT 3.38 % (0.50-2.50); Red Blood Cell Count 2.72 M/mm3 (4.30-5.90); White Blood Cell Count 2.71 K/mm3 (4.00-11.30)
[2022-09-02 05:16] LABS: Bun/Creatinine Ratio 16.2 (12.0-20.0); Creatinine, Blood 1.36 mg/dL (0.60-1.20); Percent Saturation 19.2 % (20.0-50.0); Potassium, Blood 5.1 mmol/L (3.5-5.5)
--- NOTE | 2022-09-02 15:04 | NUR ---
WOUND ASSESSED, CLEANED, AND CHANGED PER WOUND DRESSING ORDERS
--- NOTE | 2022-09-02 18:29 | NUR ---
SHIFT SUMMARY: PT A&O X3. PT HAS BEEN VERY PLEASANT AND COOPERATIVE WITH CARE. PT HAS NS RUNNING @100/HR IN JUAN JOSE PG. NO C/O PAIN OR N/V. PT CHANGED FROM MECHANICAL TO REGULAR DIET THIS SHIFT. PT VERY HAPPY WITH THE CHANGE. WOUND ON PT HEEL WAS STARTING TO WEEP THIS AM. CHANGED DRESSING PER WOUND DRESSING ORDERS THIS AFTERNOON. INSULIN COVERAGE NEEDED FOR LUNCH. LONG ACTING GIVEN THIS EVENING. NO STOOL SAMPLE ABLE TO BE OBTAINED. PT ON TELE RUNNING SR. CALL LIGHT IN REACH. BED IN LOWEST POSITION. WILL CONTINUE TO MONITOR.
[2022-09-03 00:30] LABS: Stool Occult Blood Guaiac 1 Pos (Neg)
--- NOTE | 2022-09-03 01:14 | NUR ---
PT GUAIAC STOOL SAMPLE CAME BACK POSITIVE. HOSPTIALIST NOTIFIED NO FURTHER INSTRUCTIONS GIVEN. HOSPITALIST WILL REVIEW PT CHART.
--- NOTE | 2022-09-03 01:42 | NUR ---
SHIFT SUMMARY NOC PT A/O X 3-4. PLEASANT AND COOPERATIVE WITH CARE. NS INFUSING @ 100 MLS/HR IN PG JUAN JOSE. PT ON REGULAR DIET NOW. PT HAS WOUNDS ON R HEEL AND HAS DRESSING IN PLACE THAT WAS JUST CHANGED PER WOUND CARE ORDERS AND IS C/D/I. PT DID NOT REQUIRE SHORT ACTING INSULIN COVERAGE HS. PT ON TELE RUNNING SINUS RHYTHM HR @ 68 BPM. PT SCHEDULED TO GO BACK TO [facility] 09/03/22 FOR FURHTER REHAB BEFORE GOING HOME. PT GUAIAC STOOL SAMPLE IS POSITIVE HOSPITALIST NOTIFIED.PT IS CURRENTLY RESTING WITH BED IN LOWEST POSITION, AND CALL LIGHT WITHIN REACH.
--- NOTE | 2022-09-03 04:19 | NUR ---
NOTIFIED BY U AIRCRAFT POWERPLANT REPAIRER THAT PT HAD 24 BEAT RUN OF V TACH. PT ASYPMTOMATIC PT BP 178/81 AND HR 67.HOSPITALIST NOTIFIED AND ORDERS OBTAINED FOR IV MAGNESIUM WELL SA BMP, CBC, AND MG LAB DRAWS. WILL CONTINUE TO MONITOR.
[2022-09-03 05:55] LABS: BASOPHILS ABSOLUTE AUTO 0.02 K/mm3 (0.00-0.23); BASOPHILS PERCENT AUTO 1 % (0-2); EOSINOPHILS ABSOLUTE AUTO 0.13 K/mm3 (0.00-0.68); EOSINOPHILS PERCENT AUTO 4 % (0-6); Hematocrit 24.9 % (37.0-53.0); Hemoglobin 8.2 g/dL (13.5-17.5); IMMATURE GRAN ABSOLUTE AUTO 0.02 K/mm3 (0.00-0.10); IMMATURE GRAN PERCENT AUTO 1 % (0-1); LYMPHOCYTES ABSOLUTE AUTO 0.72 K/mm3 (0.84-5.20); LYMPHOCYTES PERCENT AUTO 24 % (21-46); MONOCYTES PERCENT AUTO 7 % (4-13); Mean Corpuscular HGB 29.5 pg (26.0-34.0); Mean Corpuscular HGB Conc 32.9 g/dL (31.5-36.5); Mean Corpuscular Volume 90 fL (80-100); Mean Platelet Volume 11.5 fL (9.1-12.4); NEUTROPHILS ABSOLUTE AUTO 1.92 K/mm3 (1.96-9.15); NEUTROPHILS PERCENT AUTO 64 % (41-73); Platelet Count 90 K/mm3 (150-400); RDW Coefficient Variation 14.5 % (11.7-14.2); RDW Standard Deviation 47.6 fL (35.1-46.3); Red Blood Cell Count 2.78 M/mm3 (4.30-5.90); White Blood Cell Count 3.01 K/mm3 (4.00-11.30)
[2022-09-03 06:19] LABS: Bun/Creatinine Ratio 17.9 (12.0-20.0); Creatinine, Blood 1.17 mg/dL (0.60-1.20); Magnesium, Blood 1.7 mg/dL (1.6-2.4); Potassium, Blood 4.6 mmol/L (3.5-5.5)
[2022-09-03 10:24] LABS: SARS-Cov-2 (COVID-19) PCR, MMC NEGATIVE (NEGATIVE)
[2022-09-03] MEDS ORDERED: DOXY100 PO (11:11)
[2022-09-03] MEDS ORDERED: VISBIOME 112.51 EACH PO (11:12)
[2022-09-03] MEDS ORDERED: PANT40 PO (11:13)
[2022-09-03] MEDS ORDERED: TAMS.4ER PO (11:13)
[2022-09-03] MEDS ORDERED: ZINC220 PO (11:14)
--- NOTE | 2022-09-03 13:13 | NUR ---
DISCHARGE SUMMARY PATIENT IS ALERT AND ORIENTED X2. PATIENT HAS NO ACUTE EVENTS THIS SHIFT. VITAL SIGNS REVIEWED. PATIENT IS BEING DISCHARGED TO [facility]. [facility] IS TRANSPORTING PATIENT. PATIENT HAS NOT COMPLAINED OF PAIN, NAUSEA, SOB OR VOMITTING THIS SHIFT.
== END 2022-09-03 13:15 | DRG 682 ==
LOC: ER 17:12 → PCU 19:06 → MEDS 08-31 18:31
PROVIDERS: Emergency Medicine; Family Medicine; Internal Medicine; Student in an Organized Health Care Education/Training Program; ADMIT Internal Medicine
PROC: 5A09357 Assistance with Respiratory Ventilation, Less than 24 Consecutive Hours, Continuous Positive Airway Pressure (ICD-10-PCS; principal; 2022-08-28)
DX: N17.9 Acute kidney failure, unspecified (principal); G92.8 Other toxic encephalopathy; D61.818 Other pancytopenia; I13.0 Hypertensive heart and chronic kidney disease with heart failure and stage 1 through stage 4 chronic kidney disease, or unspecified chronic kidney disease; K92.1 Melena; L97.412 Non-pressure chronic ulcer of right heel and midfoot with fat layer exposed; I47.20 Ventricular tachycardia, unspecified; I50.32 Chronic diastolic (congestive) heart failure; E87.5 Hyperkalemia; E11.22 Type 2 diabetes mellitus with diabetic chronic kidney disease; G89.4 Chronic pain syndrome; G47.33 Obstructive sleep apnea (adult) (pediatric); N18.2 Chronic kidney disease, stage 2 (mild); K21.9 Gastro-esophageal reflux disease without esophagitis; F17.210 Nicotine dependence, cigarettes, uncomplicated; D63.1 Anemia in chronic kidney disease; E11.65 Type 2 diabetes mellitus with hyperglycemia; I25.10 Atherosclerotic heart disease of native coronary artery without angina pectoris; Z20.822 Contact with and (suspected) exposure to COVID-19; Z91.041 Radiographic dye allergy status; Z91.013 Allergy to seafood; Z88.8 Allergy status to other drugs, medicaments and biological substances; Z88.0 Allergy status to penicillin; Z79.899 Other long term (current) drug therapy; Z79.01 Long term (current) use of anticoagulants; Z79.84 Long term (current) use of oral hypoglycemic drugs; Z79.811 Long term (current) use of aromatase inhibitors; Z86.73 Personal history of transient ischemic attack (TIA), and cerebral infarction without residual deficits; I25.2 Old myocardial infarction; Z87.2 Personal history of diseases of the skin and subcutaneous tissue; Z98.890 Other specified postprocedural states; Z79.51 Long term (current) use of inhaled steroids; Z79.2 Long term (current) use of antibiotics; Z79.4 Long term (current) use of insulin
CPT/HCPCS: 36415; 76770; 80048; 80053; 80069; 81001; 82272; 82607; 82728; 82746; 82947; 83540; 83550; 83735; 84132; 85025; 85027; 85045; 93005; 93010; 94640; 94660; 94664; 94760; 94762; 96361; 96374; 97110; 97162; 97530; 99285-25; A9270; C1751; C9113; J0610; J1644; J1815; J3475; J7030; J7799; U0004

== ENCOUNTER 2022-09-19 02:31 | Day surgery (SDC) | payer MEDICARE ==
[~2022-09-19 02:31] MED LIST changes: +ALBU90OI INH; +BUPRENORPHIN-N1 EAC1 SL; +CARV3.125 PO; +CLIN150 PO; +DOXY100 PO; +INSULIN GL100 UNIT/3 SC; +NICODERM CQ TOP; +PANT40 PO; +SULTRIDS PO; +TAMS.4ER PO; +VISBIOME 112.51 EACH PO; +ZINC220 PO
== END 2022-09-19 22:39 | disposition home or self-care (01) ==
LOC: WOUND 02:31
DX: E11.621 Type 2 diabetes mellitus with foot ulcer (principal); L97.412 Non-pressure chronic ulcer of right heel and midfoot with fat layer exposed; F17.210 Nicotine dependence, cigarettes, uncomplicated; E11.42 Type 2 diabetes mellitus with diabetic polyneuropathy
CPT/HCPCS: A9270

== ENCOUNTER 2022-09-26 01:18 | Day surgery (SDC) | payer MEDICARE | END 2022-09-26 22:59 | disposition home or self-care (01) | LOC: WOUND 01:18 | DX: E11.621 Type 2 diabetes mellitus with foot ulcer (principal); L97.515 Non-pressure chronic ulcer of other part of right foot with muscle involvement without evidence of necrosis; L89.610 Pressure ulcer of right heel, unstageable; L89.890 Pressure ulcer of other site, unstageable; Z72.0 Tobacco use | CPT/HCPCS: 99406; A9270; G0463 ==

== ENCOUNTER 2022-09-28 23:37 | Inpatient (IN) | payer MEDICARE ==
[~2022-09-28] VITALS: Ht 182.9 cm; Wt 97.1 kg
[2022-09-29] VITALS (12 sets, daily range): BP systolic 114–148; BP diastolic 49–72
[2022-09-29 00:07] LABS: BASOPHILS ABSOLUTE AUTO 0.01 K/mm3 (0.00-0.23); BASOPHILS PERCENT AUTO 0 % (0-2); EOSINOPHILS ABSOLUTE AUTO 0.02 K/mm3 (0.00-0.68); EOSINOPHILS PERCENT AUTO 0 % (0-6); Hematocrit 21.5 % (37.0-53.0); IMMATURE GRAN ABSOLUTE AUTO 0.01 K/mm3 (0.00-0.10); IMMATURE GRAN PERCENT AUTO 0 % (0-1); LYMPHOCYTES ABSOLUTE AUTO 0.54 K/mm3 (0.84-5.20); LYMPHOCYTES PERCENT AUTO 11 % (21-46); MONOCYTES ABSOLUTE AUTO 0.67 K/mm3 (0.16-1.47); MONOCYTES PERCENT AUTO 13 % (4-13); Mean Corpuscular HGB 28.3 pg (26.0-34.0); Mean Corpuscular HGB Conc 32.6 g/dL (31.5-36.5); Mean Corpuscular Volume 87 fL (80-100); Mean Platelet Volume 12.7 fL (9.1-12.4); NEUTROPHILS ABSOLUTE AUTO 3.85 K/mm3 (1.96-9.15); NEUTROPHILS PERCENT AUTO 76 % (41-73); Platelet Count 97 K/mm3 (150-400); RDW Coefficient Variation 13.7 % (11.7-14.2); RDW Standard Deviation 43.8 fL (35.1-46.3); Red Blood Cell Count 2.47 M/mm3 (4.30-5.90)
[2022-09-29 00:21] LABS: Albumin, Blood 2.2 g/dL (3.4-5.0); Albumin/Globulin Ratio 0.5 (0.8-1.8); Bilirubin, Total 0.5 mg/dL (0.1-1.0); Bun/Creatinine Ratio 23.8 (12.0-20.0); Calcium, Blood 9.1 mg/dL (8.5-10.1); Creatinine, Blood 1.3 mg/dL (0.60-1.20); Globulin, Blood 4.2 g/dL (2.2-4.0); Potassium, Blood 4.2 mmol/L (3.5-5.5); Total Protein, Blood 6.4 g/dL (6.4-8.2)
[2022-09-29 03:28] LABS: Source, Urine Clean Catch
[2022-09-29 03:43] LABS: Bilirubin, Urine Neg (Neg); Blood, Urine Neg (Neg); Glucose Qualitative, Urine Neg (Neg); Ketones, Urine Neg (Neg); Leukocyte Esterase, Urine 1+ (Neg); Nitrite, Urine Neg (Neg); Protein, Urine 1+ (Neg); Urobilinogen, Urine NORM (Normal)
[2022-09-29 03:48] LABS: Appearance, Urine Clear (Clear); Color, Urine Yellow (P-Yellow)
[2022-09-29 03:49] LABS: Bacteria Rare /hpf; Red Blood Cells, Urine Not Seen /hpf (0-2); Squamous Epithelial Cells Rare /hpf (Few); White Blood Cells, Urine 0-2 /hpf (0-5); Yeast/Fungi Urine Many /hpf
[2022-09-29 06:16] LABS: Hemoglobin 7.2 g/dL (13.5-17.5)
[2022-09-29 06:41] LABS: Albumin, Blood 2.2 g/dL (3.4-5.0); Albumin/Globulin Ratio 0.5 (0.8-1.8); Bilirubin, Total 0.6 mg/dL (0.1-1.0); Bun/Creatinine Ratio 24.1 (12.0-20.0); Calcium, Blood 9.2 mg/dL (8.5-10.1); Creatinine, Blood 1.16 mg/dL (0.60-1.20); Globulin, Blood 4.1 g/dL (2.2-4.0); Potassium, Blood 3.9 mmol/L (3.5-5.5); Total Protein, Blood 6.3 g/dL (6.4-8.2)
--- NOTE | 2022-09-29 07:22 | NUR ---
SHIFT SUMMARY *LATE ENTRY* ARRIVED TO 208 @0520 FROM ER, 4 PER SLIDE TRANSFER TO BED. ADMITTED FOR CHRONIC R HEEL ULCER. VSS. REPORTS 15 PAIN IN R FOOT, MEDICATED c 5MG IV MORPHINE & PAIN DECREASED TO . PT HAS CHRONIC NEUROPATHY & STATES HE USUALLY TAKES SUBOXONE FOR PAIN, HOWEVER MISSED LAST NIGHTS DOSE. PIC OF R HEEL TAKEN. R FOOT OPEN TO AIR, HAS PURULENT DRAINAGE c FOUL ODOR. PLAN FOR POSSIBLE SURGICAL INTERVENTION, CONSULT PLACED. AOX3-SELF, PLACE, SITUATION, POOR HISTORIAN & UNAWARE OF ALL MEDS HE TAKES. LIVES c PER PT, WAS AT [facility] 2-3 WEEKS AGO. CALL LIGHT IN REACH, BED ALARM IN PLACE, REPORT GIVEN TO ISAC Nieves RN.
[2022-09-29 08:43] LABS: Hematocrit 22.6 % (37.0-53.0); Hemoglobin 7.3 g/dL (13.5-17.5)
--- NOTE | 2022-09-29 14:34 | NUR ---
1030 NICOTINE PATCH REMOVED PATIENT IS TO UNDERGO MRI, HOME GLUCOSE MONITOR ALSO REMOVED FROM [facility] FOR UPCOMING MRI
--- NOTE | 2022-09-29 17:15 | NUR ---
PTS AND DAUGHTER IN TO VISIT TODAY. PATIENT AND HIS TEARFUL ABOUT UPCOMING BKA. PT RECEIVING FIRST UNIT OF PRBC"S. DENIES NEED FOR PAIN MEDICATION THROUGHOUT SHIFT. PT AWARE OF PLAN AND IN AGREEMENT FOR NPO AFTER MIDNIGHT AND BKA IN MORNING
--- NOTE | 2022-09-29 23:33 | NUR ---
*LATE ENTRY* BLOOD FINISHED INFUSING ROUGHLY AROUND 2200. VSS. NO S/SX REACTION. PT DENIES ANY NEEDS AT THIS TIME, WILL MONITOR.
[2022-09-30] VITALS (20 sets, daily range): BP systolic 117–165; BP diastolic 54–98
[2022-09-30 04:40] LABS: Hematocrit 26.1 % (37.0-53.0); Hemoglobin 8.8 g/dL (13.5-17.5)
[2022-09-30 05:01] LABS: Bun/Creatinine Ratio 25.7 (12.0-20.0); Calcium, Blood 9.1 mg/dL (8.5-10.1); Creatinine, Blood 0.9 mg/dL (0.60-1.20); Magnesium, Blood 1.5 mg/dL (1.6-2.4)
--- NOTE | 2022-09-30 07:12 | NUR ---
DIRECTOR OF PEDIATRIC REHABILITATION SUMMARY ASSUMED CARE OF THE PT FROM PRIMARY NURSE AT 0115. HE IS ALERT AND ORIENTED, FOLLOWS DIRECTIONS. PT APPEARS UPSET ABOUT DECISION TO AMPUTATE LEG TODAY. HE HAS BEEN RESTING IN BED WHEN NOT AWAKE. DID HAVE AN EPISODE OF INCONTINENCE. MEDICATED WITH SCHEDULED PAIN MEDS.
--- NOTE | 2022-09-30 08:18 | NUR ---
TO OR VIA BED ACCOMPANIED BY FAMILY
--- NOTE | 2022-09-30 12:31 | NUR ---
1215 RETURNED TO ROOM FROM PACU, SLEEPY, OPENS EYES TO VERBAL STIMULI AND ANSWERS QUESTIONS APPROPRIATELY. RIGHT STUMP WITH STUMP SOCL AND DRESSING CLEAN DRY AND INTACT. RLE ELEVATED ON PILLOWS. FAMILY PRESENT AT BEDSIDE. PT REPORTS HE IS COMFORTABLE AT THIS TIME
--- NOTE | 2022-09-30 17:06 | NUR ---
RIGHT STUMP DRESSING CLEAN, DRY AND INTACT. ELEVATED ON PILLOWS AND ICE IN PLACE. PT REPORTS SOME RIGHT FOOT PAIN, WHERE FOOT HAS BEEN SURGICALLY REMOVED. PT LYING WITH EYES CLOSED UNLABORED RESP WITH BIOX GREATER THAN 95%. PT AND FAMILY IN AGREEMENT WITH DISCHARGE PLAN TO SNF WHEN MEDICALLY CLEARED.
[2022-09-30 22:14] LABS: Vancomycin, Trough 12.5 ug/mL (5.0-10.0)
[2022-10-01 04:21] LABS: BASOPHILS PERCENT AUTO 0 % (0-2); EOSINOPHILS PERCENT AUTO 0 % (0-6); Hematocrit 26.2 % (37.0-53.0); Hemoglobin 8.6 g/dL (13.5-17.5); IMMATURE GRAN ABSOLUTE AUTO 0.01 K/mm3 (0.00-0.10); IMMATURE GRAN PERCENT AUTO 0 % (0-1); LYMPHOCYTES ABSOLUTE AUTO 0.39 K/mm3 (0.84-5.20); LYMPHOCYTES PERCENT AUTO 14 % (21-46); MONOCYTES PERCENT AUTO 7 % (4-13); Mean Corpuscular HGB 28.2 pg (26.0-34.0); Mean Corpuscular HGB Conc 32.8 g/dL (31.5-36.5); Mean Corpuscular Volume 86 fL (80-100); Mean Platelet Volume 12.2 fL (9.1-12.4); NEUTROPHILS ABSOLUTE AUTO 2.22 K/mm3 (1.96-9.15); NEUTROPHILS PERCENT AUTO 79 % (41-73); Platelet Count 81 K/mm3 (150-400); RDW Coefficient Variation 13.8 % (11.7-14.2); RDW Standard Deviation 43.6 fL (35.1-46.3); Red Blood Cell Count 3.05 M/mm3 (4.30-5.90); White Blood Cell Count 2.82 K/mm3 (4.00-11.30)
[2022-10-01 04:25] VITALS: BP 138/70
[2022-10-01 04:41] LABS: Bun/Creatinine Ratio 31.7 (12.0-20.0); Calcium, Blood 8.9 mg/dL (8.5-10.1); Creatinine, Blood 1.01 mg/dL (0.60-1.20); Magnesium, Blood 2.1 mg/dL (1.6-2.4); Potassium, Blood 4.6 mmol/L (3.5-5.5)
--- NOTE | 2022-10-01 05:03 | NUR ---
PUBLIC HEALTH SUMMARY PT IS POD 1 FROM RIGHT BKA FOR ULCER. PT IS ALERT AND ORIENTED X3, WHICH APPEARS TO BE BASELINE. HE IS INTERMITTENTLY AGITATED WITH STAFF AND HIS AMPUTATION. MEDICATED WITH SCHEDULED SUBOXONE AT HS AND PRN OXY THIS AM. RECEIVED IV VANCO AND CEFEPIME. CURRENTLY ON POTASSIUM CHLORIDE AT 80 ML/HR. PT REPORTS PAIN IN THE RIGHT STUMP WITHIN PROPORTION. PRESSURE SOCK IN PLACE AND C/D/I.
[2022-10-01 07:26] VITALS: BP 140/59
--- NOTE | 2022-10-01 16:59 | NUR ---
SUMMARY NO ACUTE CHANGES T/O SHIFT. PT IRRITABLE THIS AM THEN APOLOGIZED FOR BEHAVIOR AND HAS BEEN PLEASANT AND COOPERATIVE SINCE. STUMP STOCKING TO RLE CDI. PT REPORTS PHANTOM PAIN. MEDICATED PER ORDERS FOR PAIN AND ELEVATING RLE ON PILLOWS. PT WORKED WITH PT TO SIT ON SIDE OF BED THIS AM AND THEN STOOD AT SIDE OF BED WITH OT AND RN THIS AFTERNOON. CALL LIGHT IN REACH.
[2022-10-01 17:01] VITALS: BP 142/58
[2022-10-01 20:33] VITALS: BP 123/60
[2022-10-01 22:21] LABS: Vancomycin, Trough 16.3 ug/mL (5.0-10.0)
[2022-10-02 04:15] LABS: Hematocrit 25.1 % (37.0-53.0); Hemoglobin 8.2 g/dL (13.5-17.5); Mean Corpuscular HGB 28.5 pg (26.0-34.0); Mean Corpuscular HGB Conc 32.7 g/dL (31.5-36.5); Mean Corpuscular Volume 87 fL (80-100); Mean Platelet Volume 12.3 fL (9.1-12.4); Platelet Count 89 K/mm3 (150-400); RDW Coefficient Variation 13.8 % (11.7-14.2); RDW Standard Deviation 43.9 fL (35.1-46.3); Red Blood Cell Count 2.88 M/mm3 (4.30-5.90); White Blood Cell Count 3.15 K/mm3 (4.00-11.30)
[2022-10-02 04:51] LABS: Bun/Creatinine Ratio 34.3 (12.0-20.0); Calcium, Blood 8.7 mg/dL (8.5-10.1); Creatinine, Blood 0.96 mg/dL (0.60-1.20); Potassium, Blood 4.6 mmol/L (3.5-5.5)
[2022-10-02 05:27] VITALS: BP 147/70
[2022-10-02 07:07] VITALS: BP 145/76
--- NOTE | 2022-10-02 08:08 | NUR ---
SUMMARY NO ACUTE CHANGES.PT AT PTS BEDSIDE.
--- NOTE | 2022-10-02 08:22 | NUR ---
DR CARRERA IN TO SEE PT.
--- NOTE | 2022-10-02 12:58 | NUR ---
DR MOSER IN TO SEE PT AND CHANGE DRESSING TO Jeancarlos OLIVEIRA
[2022-10-02 16:01] VITALS: BP 136/86
--- NOTE | 2022-10-02 17:19 | NUR ---
SUMMARY NO ACUTE CHANGES T/O SHIFT. DR MOSER CHANGED PT'S DRESSING THIS SHIFT. PT TOLERATED WELL. PAINFUL T/O SHIFT BUT REPORTS IMPROVEMENT THIS EVENING, RATING 5/10. PT WORKED WITH THERAPY. PLEASANT AND COOPERATIVE. CALL LIGHT IN REACH.
[2022-10-02 19:13] VITALS: BP 121/61
[2022-10-03 03:43] VITALS: BP 146/71
--- NOTE | 2022-10-03 04:31 | NUR ---
SHIFT SUMMARY PT A&OX3, TROUBLE WITH DATE/MONTH. COOPERATIVE WITH CARE. NO ACUTE CHANGES. PT RESTED MAJORITY OF SHIFT, MEDICATED ONCE FOR PAIN. TOLERATING PO INTAKE. USING BEDSIDE URINAL TO VOID, NO BM YET. DRESSING CHANGED 10/[address] MOSER, STUMP SOCK IN PLACE. CALL LIGHT WITHIN REACH.
[2022-10-03 04:34] LABS: Hematocrit 25.1 % (37.0-53.0); Hemoglobin 8.1 g/dL (13.5-17.5); Mean Corpuscular HGB 28.3 pg (26.0-34.0); Mean Corpuscular HGB Conc 32.3 g/dL (31.5-36.5); Mean Corpuscular Volume 88 fL (80-100); Mean Platelet Volume 12.2 fL (9.1-12.4); Platelet Count 85 K/mm3 (150-400); RDW Coefficient Variation 13.7 % (11.7-14.2); RDW Standard Deviation 43.8 fL (35.1-46.3); Red Blood Cell Count 2.86 M/mm3 (4.30-5.90); White Blood Cell Count 3.05 K/mm3 (4.00-11.30)
[2022-10-03 05:27] LABS: Bun/Creatinine Ratio 27.1 (12.0-20.0); Calcium, Blood 8.9 mg/dL (8.5-10.1); Creatinine, Blood 0.92 mg/dL (0.60-1.20); Potassium, Blood 4.5 mmol/L (3.5-5.5)
[2022-10-03 07:50] VITALS: BP 152/74
[2022-10-03 13:40] LABS: Vancomycin, Random 11.9 ug/mL
[2022-10-03 14:51] VITALS: BP 135/68
--- NOTE | 2022-10-03 15:14 | NUR ---
REPORT PASSED TO FRANCO LINDER
--- NOTE | 2022-10-03 18:02 | NUR ---
ASSUMED CARE OF PATIENT AT 1700. ALERT, [place] OF [place]. RESTING IN BED. FABRIC WORKER FITTER NOTIFIED OF REDNESS TO GROIN AND GENITALS THAT APPEARS LIKE YEAST INFECTION. OBTAINED ORDER FOR MICONAZOLE POWDER FROM DR CARRERA. SEE EMAR.
[2022-10-03 19:57] VITALS: BP 129/70
--- NOTE | 2022-10-04 02:35 | NUR ---
REPOSITIONED PATIENT TO RIGHT SIDE, NOTED BLANCHABLE REDDNESS TO BUTTOCKS, MEPILEX PLACED FOR PROTECTION.
[2022-10-04 03:20] VITALS: BP 118/78
--- NOTE | 2022-10-04 04:02 | NUR ---
SUMMARY PATIENT IS AOX4, POD5 R BKA. ABD AND STUMP SOCK TO RLE C/D/I. PATIENT REPOSITIONS T/O NIGHT. RLE ELEVATED ON PILLOWS. MEDICATED FOR PAIN AND MANAGED WELL PER EMAR. VOIDING USING URINAL, TOLERATING PO INTAKE. ABD IS MILDLY DISTENDED REPORTS NO BM FOR SEVERAL DAYS. BOWEL CARE ADMINISTERED. PATIENT IS 2 PERSON STAND PIVOT TO BSC/CHAIR. IV IS SALINE LOCKED. PATIENT HAS NO ACUTE EVENTS THIS SHIFT. VSS, CALL LIGHT IN REACH. WILL REPORT TO DAY RN.
[2022-10-04 07:04] VITALS: BP 116/55
--- NOTE | 2022-10-04 16:36 | NUR ---
SHIFT SUMMARY POD5 RBKA PT A&O X4, STUMP SOCK ON TO RLE, C/D/I, PILLOWS UNDER RLE FOR COMFORT. PT UP IN CHAIR WITH THERAPY. TWO PERSON ASST. WITH SLIDE BOARD. PT ABLE TO REPOSTION IN BED BY SELF. POWERGLIDE INSERTED FOR ANTIBIOTICS. PT USING URINAL WITH ASST. PT DENIES ANY PAIN.
[2022-10-04 19:12] VITALS: BP 138/69
[2022-10-05 05:28] VITALS: BP 124/54
--- NOTE | 2022-10-05 05:30 | NUR ---
SHIFT SUMMARY POD 5 R BKA. STUMP SOCK REMAINS IN PLACE AND IS C/D/I. SENSATION AND CIRCULATION REMAINS INTACT. VSS. PT MEDICATED FOR PAIN ONCE WITH PRN MEDICATION. ELEVATION OF RLE AND REPOSITIONING UTILIZED FOR COMFORT. PT SLEPT ON AND OFF T/O THE NIGHT. TOLLERATING PO INTAKE W/O N/V. VOIDING W/O DIFFICULTY, NO BM'S NOTED. PASSING FLATTUS. PLAN FOR PT TO D/C TO SNF TODAY. NO ACUTE EVENTS NOTED. THE PATIENT IS CURRENTLY SLEEPING, IN NO DISTRESS, CALL LIGHT IN REACH
[2022-10-05 07:26] VITALS: BP 134/60
[2022-10-05 08:55] LABS: Calcium, Blood 9.2 mg/dL (8.5-10.1); Potassium, Blood 4.5 mmol/L (3.5-5.5)
[2022-10-05 12:00] LABS: SARS-Cov-2 (COVID-19) PCR, MMC NEGATIVE (NEGATIVE)
[2022-10-05 14:11] VITALS: BP 128/63
--- NOTE | 2022-10-05 17:08 | NUR ---
DISHCHARGE SUMMARY POD 5 R BKA PT A&O X3, INCISION CLOSED WITH SUTURES. DRESSING C/D/I, NO REDNESS OR SELLING AROUND INSCION. SOCK OVER THE RLE. USES URINAL WITH NURSE ASST. REDNESS AREA IN THE ZULEMA AREA, POWDER PUT IN PER EMAR. NO COMPLAINTS OF PAIN. POWERGLIDE IN PLACE FOR CONTINUATION OF ANTIBITOCS. PT SLIDEBOARD TRANSFER TO WHEELCHAIR FOR DISCHARGE. ALL POSSESSIONS WITH PT. NO QUESTIONS AT THIS TIME. SERGE GAMEZ CALL[facility].
== END 2022-10-05 17:20 | DRG 240 ==
LOC: ER 23:37 → SURS 09-29 04:31
PROVIDERS: Family Medicine; Hospitalist; Orthopaedic Surgery; Student in an Organized Health Care Education/Training Program; ADMIT Internal Medicine
PROC: 30233N0 Transfusion of Autologous Red Blood Cells into Peripheral Vein, Percutaneous Approach (ICD-10-PCS; 2022-09-30)
PROC: 0Y6H0Z3 Detachment at Right Lower Leg, Low, Open Approach (ICD-10-PCS; principal; 2022-09-30 08:30)
DX: E11.52 Type 2 diabetes mellitus with diabetic peripheral angiopathy with gangrene (principal); E87.1 Hypo-osmolality and hyponatremia; I13.0 Hypertensive heart and chronic kidney disease with heart failure and stage 1 through stage 4 chronic kidney disease, or unspecified chronic kidney disease; G93.40 Encephalopathy, unspecified; I50.30 Unspecified diastolic (congestive) heart failure; R78.81 Bacteremia; M86.271 Subacute osteomyelitis, right ankle and foot; L03.115 Cellulitis of right lower limb; L97.516 Non-pressure chronic ulcer of other part of right foot with bone involvement without evidence of necrosis; N17.9 Acute kidney failure, unspecified; E11.69 Type 2 diabetes mellitus with other specified complication; Z20.822 Contact with and (suspected) exposure to COVID-19; N18.9 Chronic kidney disease, unspecified; D63.1 Anemia in chronic kidney disease; E11.65 Type 2 diabetes mellitus with hyperglycemia; I25.2 Old myocardial infarction; E11.621 Type 2 diabetes mellitus with foot ulcer; E11.40 Type 2 diabetes mellitus with diabetic neuropathy, unspecified; E83.42 Hypomagnesemia; G89.4 Chronic pain syndrome; K21.9 Gastro-esophageal reflux disease without esophagitis; B95.62 Methicillin resistant Staphylococcus aureus infection as the cause of diseases classified elsewhere; S91.301A Unspecified open wound, right foot, initial encounter; G47.33 Obstructive sleep apnea (adult) (pediatric); Z96.641 Presence of right artificial hip joint; E11.22 Type 2 diabetes mellitus with diabetic chronic kidney disease; Z86.73 Personal history of transient ischemic attack (TIA), and cerebral infarction without residual deficits; Z98.890 Other specified postprocedural states; Z90.89 Acquired absence of other organs; Z87.2 Personal history of diseases of the skin and subcutaneous tissue; Z99.89 Dependence on other enabling machines and devices; Z89.512 Acquired absence of left leg below knee; Z88.0 Allergy status to penicillin; Z88.8 Allergy status to other drugs, medicaments and biological substances; Z91.013 Allergy to seafood; Z91.041 Radiographic dye allergy status; Z79.4 Long term (current) use of insulin; Z79.02 Long term (current) use of antithrombotics/antiplatelets; Z79.899 Other long term (current) drug therapy
CPT/HCPCS: 36415; 36430; 51701; 71045; 73650; 80048; 80053; 80202; 81001; 82947; 83036; 83605; 83735; 85014; 85018; 85025; 85027; 86850; 86900; 86901; 86923; 87040; 87077; 87147; 87186; 88305; 88311; 93005; 93010; 94760; 94762; 96365-59; 96366-59; 97110; 97162; 97166; 97530; 97535; 99285-25; A9270; J0692; J1100; J1170; J1650; J1815; J1885; J2270; J2405; J2704; J3010; J3370; J3475; J3480; J7050; P9016; U0004

== ENCOUNTER → 2022-09-28 | Outpatient (CLI) | payer MEDICARE ==
[2022-09-28 19:27] LABS: BASOPHILS ABSOLUTE AUTO 0.02 K/mm3 (0.00-0.23); BASOPHILS PERCENT AUTO 0 % (0-2); EOSINOPHILS ABSOLUTE AUTO 0.04 K/mm3 (0.00-0.68); EOSINOPHILS PERCENT AUTO 1 % (0-6); Hematocrit 23.8 % (37.0-53.0); Hemoglobin 7.8 g/dL (13.5-17.5); IMMATURE GRAN ABSOLUTE AUTO 0.02 K/mm3 (0.00-0.10); IMMATURE GRAN PERCENT AUTO 0 % (0-1); LYMPHOCYTES ABSOLUTE AUTO 0.52 K/mm3 (0.84-5.20); LYMPHOCYTES PERCENT AUTO 8 % (21-46); MONOCYTES ABSOLUTE AUTO 0.57 K/mm3 (0.16-1.47); MONOCYTES PERCENT AUTO 9 % (4-13); Mean Corpuscular HGB 28.8 pg (26.0-34.0); Mean Corpuscular HGB Conc 32.8 g/dL (31.5-36.5); Mean Corpuscular Volume 88 fL (80-100); Mean Platelet Volume 12.5 fL (9.1-12.4); NEUTROPHILS ABSOLUTE AUTO 5.01 K/mm3 (1.96-9.15); NEUTROPHILS PERCENT AUTO 81 % (41-73); Platelet Count 116 K/mm3 (150-400); RDW Coefficient Variation 13.8 % (11.7-14.2); RDW Standard Deviation 44.6 fL (35.1-46.3); Red Blood Cell Count 2.71 M/mm3 (4.30-5.90); White Blood Cell Count 6.18 K/mm3 (4.00-11.30)
[2022-09-28 20:09] LABS: Albumin, Blood 2.5 g/dL (3.4-5.0); Albumin/Globulin Ratio 0.5 (0.8-1.8); Bilirubin, Total 0.5 mg/dL (0.1-1.0); Bun/Creatinine Ratio 26.2 (12.0-20.0); Calcium, Blood 9.6 mg/dL (8.5-10.1); Creatinine, Blood 1.22 mg/dL (0.60-1.20); Globulin, Blood 4.7 g/dL (2.2-4.0); Potassium, Blood 4.4 mmol/L (3.5-5.5); Total Protein, Blood 7.2 g/dL (6.4-8.2)
== END | disposition home or self-care (01) ==
LOC: LAB SHORT 17:49
PROVIDERS: Nurse Practitioner Family
DX: N17.9 Acute kidney failure, unspecified (principal); E11.42 Type 2 diabetes mellitus with diabetic polyneuropathy; E11.51 Type 2 diabetes mellitus with diabetic peripheral angiopathy without gangrene; E11.59 Type 2 diabetes mellitus with other circulatory complications; E11.69 Type 2 diabetes mellitus with other specified complication
CPT/HCPCS: 80053; 83036; 85025

== ENCOUNTER → 2022-12-19 | Outpatient (CLI) | payer MEDICARE ==
[2022-12-19 19:20] LABS: BASOPHILS ABSOLUTE AUTO 0.01 K/mm3 (0.00-0.23); BASOPHILS PERCENT AUTO 1 % (0-2); EOSINOPHILS ABSOLUTE AUTO 0.12 K/mm3 (0.00-0.68); EOSINOPHILS PERCENT AUTO 6 % (0-6); Hematocrit 29.9 % (37.0-53.0); Hemoglobin 9.3 g/dL (13.5-17.5); IMMATURE GRAN ABSOLUTE AUTO 0.01 K/mm3 (0.00-0.10); IMMATURE GRAN PERCENT AUTO 1 % (0-1); LYMPHOCYTES ABSOLUTE AUTO 0.47 K/mm3 (0.84-5.20); LYMPHOCYTES PERCENT AUTO 23 % (21-46); MONOCYTES ABSOLUTE AUTO 0.22 K/mm3 (0.16-1.47); MONOCYTES PERCENT AUTO 11 % (4-13); Mean Corpuscular HGB 26.6 pg (26.0-34.0); Mean Corpuscular HGB Conc 31.1 g/dL (31.5-36.5); Mean Corpuscular Volume 85 fL (80-100); NEUTROPHILS ABSOLUTE AUTO 1.24 K/mm3 (1.96-9.15); NEUTROPHILS PERCENT AUTO 60 % (41-73); Platelet Count 61 K/mm3 (150-400); RDW Coefficient Variation 14.6 % (11.7-14.2); RDW Standard Deviation 45.1 fL (35.1-46.3); White Blood Cell Count 2.07 K/mm3 (4.00-11.30)
[2022-12-19 20:03] LABS: Alanine Aminotransfer (ALT/SGP 23 U/L (12-78); Albumin, Blood 3.1 g/dL (3.4-5.0); Albumin/Globulin Ratio 0.8 (0.8-1.8); Alk Phos 118 U/L (50-136); Anion Gap 5 mmol/L (6-16); Aspartate Aminotrans (AST/SGOT 18 U/L (12-37); Bilirubin, Total 0.2 mg/dL (0.1-1.0); Blood Urea Nitrogen 21 mg/dL (8-24); Bun/Creatinine Ratio 20.4 (12.0-20.0); CO2, Blood 25 mmol/L (21-32); Chloride, Blood 112 mmol/L (98-108); Cholesterol 127 mg/dL (50-200); Creatinine, Blood 1.03 mg/dL (0.60-1.20); Globulin, Blood 3.8 g/dL (2.2-4.0); Glomerular Filtration Rate 77 (60-); Glucose, Blood 290 mg/dL (70-99); HDL Cholesterol 32 mg/dL (>39); LDL/HDL RATIO 1.7; Low Density Lipoprotein Chol 53 mg/dL (0-110); Potassium, Blood 4.5 mmol/L (3.5-5.5); Sodium, Blood 142 mmol/L (136-145); Total Protein, Blood 6.9 g/dL (6.4-8.2); Triglycerides 210 mg/dL (30-160); Very Low Density Lipoprot Chol 42 mg/dL (6-32)
[2022-12-21 07:12] LABS: HEMOGLOBIN A1C 7.1 % (4.8-5.6)
== END ==
LOC: LAB 16:44 → LAB SHORT 16:44
PROVIDERS: Nurse Practitioner Family
DX: I10 Essential (primary) hypertension (principal); E11.59 Type 2 diabetes mellitus with other circulatory complications; E11.21 Type 2 diabetes mellitus with diabetic nephropathy; E11.69 Type 2 diabetes mellitus with other specified complication; E78.5 Hyperlipidemia, unspecified
CPT/HCPCS: 80053; 80061; 83036; 85025

== ENCOUNTER → 2023-01-28 | Outpatient (CLI) | payer MEDICARE ==
[2023-01-28 18:51] LABS: BASOPHILS ABSOLUTE AUTO 0.01 K/mm3 (0.00-0.23); BASOPHILS PERCENT AUTO 0 % (0-2); EOSINOPHILS ABSOLUTE AUTO 0.15 K/mm3 (0.00-0.68); EOSINOPHILS PERCENT AUTO 5 % (0-6); Hematocrit 32.9 % (37.0-53.0); Hemoglobin 10.3 g/dL (13.5-17.5); IMMATURE GRAN ABSOLUTE AUTO 0.01 K/mm3 (0.00-0.10); IMMATURE GRAN PERCENT AUTO 0 % (0-1); LYMPHOCYTES ABSOLUTE AUTO 0.65 K/mm3 (0.84-5.20); LYMPHOCYTES PERCENT AUTO 21 % (21-46); MONOCYTES ABSOLUTE AUTO 0.26 K/mm3 (0.16-1.47); MONOCYTES PERCENT AUTO 8 % (4-13); Mean Corpuscular HGB 26.8 pg (26.0-34.0); Mean Corpuscular HGB Conc 31.3 g/dL (31.5-36.5); Mean Corpuscular Volume 86 fL (80-100); NEUTROPHILS ABSOLUTE AUTO 2.04 K/mm3 (1.96-9.15); NEUTROPHILS PERCENT AUTO 66 % (41-73); Platelet Count 60 K/mm3 (150-400); RDW Coefficient Variation 16.1 % (11.7-14.2); RDW Standard Deviation 50.2 fL (35.1-46.3); Red Blood Cell Count 3.85 M/mm3 (4.30-5.90); White Blood Cell Count 3.12 K/mm3 (4.00-11.30)
== END ==
LOC: LAB 17:31 → LAB SHORT 17:31
PROVIDERS: Nurse Practitioner Family
DX: I10 Essential (primary) hypertension (principal)
CPT/HCPCS: 85025

== ENCOUNTER 2023-04-25 13:43 | Observation (INO) | payer MEDICARE ==
[~2023-04-25] VITALS: Ht 182.9 cm; Wt 97.0 kg
[~2023-04-25 13:43] MED LIST changes: -VITAMIN D-32000 UNIT PO; +Vitamin D1000 UNI1 PO
[2023-04-25 14:17] LABS: BASOPHILS ABSOLUTE AUTO 0.02 K/mm3 (0.00-0.23); BASOPHILS PERCENT AUTO 0 % (0-2); EOSINOPHILS ABSOLUTE AUTO 0.03 K/mm3 (0.00-0.68); EOSINOPHILS PERCENT AUTO 1 % (0-6); Hemoglobin 12.1 g/dL (13.5-17.5); IMMATURE GRAN ABSOLUTE AUTO 0.01 K/mm3 (0.00-0.10); IMMATURE GRAN PERCENT AUTO 0 % (0-1); LYMPHOCYTES ABSOLUTE AUTO 0.25 K/mm3 (0.84-5.20); LYMPHOCYTES PERCENT AUTO 6 % (21-46); MONOCYTES ABSOLUTE AUTO 0.28 K/mm3 (0.16-1.47); MONOCYTES PERCENT AUTO 6 % (4-13); Mean Corpuscular HGB 28.1 pg (26.0-34.0); Mean Corpuscular HGB Conc 32.7 g/dL (31.5-36.5); Mean Corpuscular Volume 86 fL (80-100); Mean Platelet Volume 12.7 fL (9.1-12.4); NEUTROPHILS ABSOLUTE AUTO 3.92 K/mm3 (1.96-9.15); NEUTROPHILS PERCENT AUTO 87 % (41-73); Platelet Count 64 K/mm3 (150-400); RDW Standard Deviation 47.8 fL (35.1-46.3); Red Blood Cell Count 4.31 M/mm3 (4.30-5.90); White Blood Cell Count 4.51 K/mm3 (4.00-11.30)
[2023-04-25 14:53] LABS: Alanine Aminotransfer (ALT/SGP 26 U/L (12-78); Albumin, Blood 3.3 g/dL (3.4-5.0); Albumin/Globulin Ratio 0.8 (0.8-1.8); Alk Phos 98 U/L (50-136); Anion Gap 5 mmol/L (6-16); Aspartate Aminotrans (AST/SGOT 30 U/L (12-37); Blood Urea Nitrogen 19 mg/dL (8-24); Bun/Creatinine Ratio 18.4 (12.0-20.0); CO2, Blood 24 mmol/L (21-32); Calcium, Blood 9.1 mg/dL (8.5-10.1); Chloride, Blood 110 mmol/L (98-108); Creatinine, Blood 1.03 mg/dL (0.60-1.20); Ethanol (Alcohol), Blood, Med <3 mg/dL; Globulin, Blood 4.2 g/dL (2.2-4.0); Glomerular Filtration Rate 76 (60-); Glucose, Blood 270 mg/dL (70-99); Potassium, Blood 4.2 mmol/L (3.5-5.5); Sodium, Blood 139 mmol/L (136-145); Total Protein, Blood 7.5 g/dL (6.4-8.2)
[2023-04-25 15:43] LABS: Source, Urine Straight Cath
[2023-04-25 15:44] LABS: International Normalized Ratio 1.13; Prothrombin Time Results 11.8 Sec (9.7-11.5)
[2023-04-25 15:48] LABS: Appearance, Urine Hazy (Clear); Blood, Urine 2+ (Neg); Color, Urine Yellow (P-Yellow); Glucose Qualitative, Urine 1+ (Neg); Ketones, Urine Neg (Neg); Leukocyte Esterase, Urine 1+ (Neg); Nitrite, Urine Pos (Neg); Protein, Urine 3+ (Neg); Urobilinogen, Urine 2+ (Normal)
[2023-04-25 16:10] LABS: Bilirubin, Urine 1+ (Neg)
[2023-04-25 16:11] LABS: U Amphetamine Screen Not Detected; U Barbituate Screen Not Detected; U Benzodiazapine Screen Not Detected; U Buprenorphine Screen DETECTED; U Cannabinoids Screen Not Detected; U Cocaine Screen Not Detected; U Methadone Screen Not Detected; U Methamphetamine Screen Not Detected; U Opiates Screen Not Detected; U Oxycodone Screen Not Detected; U Phencyclidine Screen Not Detected
[2023-04-25 16:12] LABS: White Blood Cells, Urine 25-50 /hpf (0-5)
[2023-04-25 16:13] LABS: Bacteria Few /hpf; Squamous Epithelial Cells Mod /hpf (Few); Transitional Epithelial Cells Rare /hpf (0-Rare)
[2023-04-25 20:24] VITALS: BP 125/77
[2023-04-26 04:27] VITALS: BP 137/74
[2023-04-26 05:43] LABS: BASOPHILS ABSOLUTE AUTO 0.01 K/mm3 (0.00-0.23); BASOPHILS PERCENT AUTO 1 % (0-2); EOSINOPHILS ABSOLUTE AUTO 0.03 K/mm3 (0.00-0.68); EOSINOPHILS PERCENT AUTO 1 % (0-6); Hematocrit 34.7 % (37.0-53.0); Hemoglobin 11.1 g/dL (13.5-17.5); IMMATURE GRAN ABSOLUTE AUTO 0.01 K/mm3 (0.00-0.10); IMMATURE GRAN PERCENT AUTO 1 % (0-1); LYMPHOCYTES ABSOLUTE AUTO 0.33 K/mm3 (0.84-5.20); LYMPHOCYTES PERCENT AUTO 16 % (21-46); MONOCYTES ABSOLUTE AUTO 0.24 K/mm3 (0.16-1.47); MONOCYTES PERCENT AUTO 11 % (4-13); Mean Corpuscular HGB 28.2 pg (26.0-34.0); Mean Corpuscular Volume 88 fL (80-100); NEUTROPHILS PERCENT AUTO 71 % (41-73); Platelet Count 52 K/mm3 (150-400); RDW Coefficient Variation 15.4 % (11.7-14.2); RDW Standard Deviation 49.8 fL (35.1-46.3); Red Blood Cell Count 3.93 M/mm3 (4.30-5.90); White Blood Cell Count 2.12 K/mm3 (4.00-11.30)
[2023-04-26 05:53] LABS: Mean Platelet Volume 13.1 fL (9.1-12.4)
[2023-04-26 06:00] LABS: Albumin, Blood 2.9 g/dL (3.4-5.0); Albumin/Globulin Ratio 0.7 (0.8-1.8); Bilirubin, Total 0.7 mg/dL (0.1-1.0); Bun/Creatinine Ratio 15.9 (12.0-20.0); Calcium, Blood 8.8 mg/dL (8.5-10.1); Creatinine, Blood 1.13 mg/dL (0.60-1.20); Magnesium, Blood 1.6 mg/dL (1.6-2.4); Potassium, Blood 4.1 mmol/L (3.5-5.5); Total Protein, Blood 6.9 g/dL (6.4-8.2)
--- NOTE | 2023-04-26 06:47 | NUR ---
SHIFT SUMMARY NO EVENTS OVERNIGHT
[2023-04-26 08:54] VITALS: BP 130/72
--- NOTE | 2023-04-26 10:20 | NUR ---
ATTEMPTED TO CALL PT OLYA TO ASK HER WHAT INSULIN DOSE PT IS ON AT HOME PT IS UNABLE TO RECALL. LEFT A MESSAGE REQUESTING A RETURN CALL.
--- NOTE | 2023-04-26 10:21 | NUR ---
PT GIVEN ROCEPHIN VIA IV THIS MORNING. PT DENIES ANY ITCHING, SWELLING, NAUSEA AFTER MEDICATION GIVEN. TOLERATED WELL.
[2023-04-26 15:54] VITALS: BP 146/81
[2023-04-26 19:34] VITALS: BP 144/71
--- NOTE | 2023-04-26 19:40 | NUR ---
SHIFT SUMMARY: PT A/O X 3, BEDREST AT THIS TIME DUE TO N=PT NOT HAVING PROSTHESIS TO GET OOB. PLEASANT AND COOPERATIVE WITH CARE. TOLERATING ABX. ECHO COMPLETED. PT HAD NO COMPLAINTS OF CP/PALPITATIONS THROUGHOUT THE DAY.
[2023-04-27 01:51] VITALS: BP 151/84
--- NOTE | 2023-04-27 03:25 | NUR ---
NOTIFIED THAT PT HR DECREASED TO 38 BPM FOR 2 SECS. PT HAS HAD MULTIPLE HR READINGS IN HIGH 30'S FOR AT LEAST 2 SECS. PT AROUSES EASILY WITH VERBAL STIMULI.
--- NOTE | 2023-04-27 04:46 | NUR ---
SHIFT SUMMARY NOC PT A/OX 3-4. TAKE A FEW MOMENTS FOR PT TO GATHER SELF TO ANSWER QUESTIONS, BUT ANSWERS APPROPRIATELY. PT HAS C/O OF PAIN IN RLE STUMP AND WAS MEDICATED PER EMAR. PT ON TELE RUNNING AFIB IN 'S. PT CBG 243 CNI. PT EXPECTED TO DISCHARGE HOME TODAY ON PO ABX PENDING BC'S. PT IS CURRENTLY RESTING WITH BED IN LOWEST POSITION, AND CALL LIGHT WITHIN REACH.
[2023-04-27 05:51] LABS: Hematocrit 35.5 % (37.0-53.0); Hemoglobin 11.8 g/dL (13.5-17.5); Mean Corpuscular HGB 28.6 pg (26.0-34.0); Mean Corpuscular HGB Conc 33.2 g/dL (31.5-36.5); Mean Corpuscular Volume 86 fL (80-100); Mean Platelet Volume 12.5 fL (9.1-12.4); Platelet Count 55 K/mm3 (150-400); RDW Standard Deviation 47.8 fL (35.1-46.3); Red Blood Cell Count 4.13 M/mm3 (4.30-5.90); White Blood Cell Count 2.74 K/mm3 (4.00-11.30)
[2023-04-27 06:28] LABS: Albumin, Blood 3.1 g/dL (3.4-5.0); Anion Gap 3 mmol/L (6-16); Blood Urea Nitrogen 20 mg/dL (8-24); Bun/Creatinine Ratio 16.7 (12.0-20.0); CO2, Blood 31 mmol/L (21-32); Calcium, Blood 9.2 mg/dL (8.5-10.1); Chloride, Blood 104 mmol/L (98-108); Ferritin, Serum 60 ng/mL (26-388); Glomerular Filtration Rate 63 (60-); Glucose, Blood 225 mg/dL (70-99); Iron Serum 34 ug/dL (65-175); Percent Saturation 11.1 % (20.0-50.0); Phosphorus, Blood 2.8 mg/dL (2.5-4.9); Sodium, Blood 138 mmol/L (136-145); Total Iron Binding Capacity 307 ug/dL (250-450)
[2023-04-27 07:50] VITALS: BP 145/87
[2023-04-27] MEDS ORDERED: CIPR500 PO (11:44)
--- NOTE | 2023-04-27 12:09 | NUR ---
PATIENT DISCHARGED TO HOME ACCOMPANIED BY FAMILY. TELEMETRY AND IV SALINE LOCK REMOVED WITHOUT INCIDENT. VERBALIZED UNDERSTANDING OF D/C INSTRUCTIONS. NEW MEDICATION FAXED TO [facility] D/T THEIR LOCAL PHARMACY BEING CLOSED TODAY. OFF UNTI VIA W/C AT 1206. NO PERSONAL BELONGINGS LEFT BEHIND IN ROOM.
== END 2023-04-27 12:10 | disposition home or self-care (01) ==
LOC: ER 13:43 → MEDS 13:44 → ENPENDDIS 04-27 11:39 → MEDS 04-27 12:10
PROVIDERS: Internal Medicine; Physician Assistant; ADMIT Student in an Organized Health Care Education/Training Program
DX: G92.8 Other toxic encephalopathy (principal); J18.9 Pneumonia, unspecified organism; E11.9 Type 2 diabetes mellitus without complications; I50.32 Chronic diastolic (congestive) heart failure; I48.92 Unspecified atrial flutter; G47.33 Obstructive sleep apnea (adult) (pediatric); I11.0 Hypertensive heart disease with heart failure; G89.4 Chronic pain syndrome; Z79.4 Long term (current) use of insulin; N39.0 Urinary tract infection, site not specified; D61.818 Other pancytopenia; I25.2 Old myocardial infarction; K21.9 Gastro-esophageal reflux disease without esophagitis; F17.210 Nicotine dependence, cigarettes, uncomplicated; Z88.0 Allergy status to penicillin; Z86.73 Personal history of transient ischemic attack (TIA), and cerebral infarction without residual deficits; Z91.041 Radiographic dye allergy status; Z91.013 Allergy to seafood; Z89.511 Acquired absence of right leg below knee
CPT/HCPCS: 36415; 71046; 80053; 80069; 81001; 82140; 82728; 82947; 83540; 83550; 83605; 83735; 83880; 84484; 85025; 85027; 85610; 87040; 87077; 87086; 87186; 87449; 93005; 93010; 93306; 94762; 96365; 96366; 96367; 96372; 96375; 99285-25; A9270; G0378; J0696; J1650; J1815; J1956; J3010; J7030; J7050

== ENCOUNTER → 2023-11-18 | Outpatient (CLI) | payer MEDICARE ==
[~2023-11-18] MED LIST changes: +CIPR500 PO
[2023-11-18 17:41] LABS: BASOPHILS ABSOLUTE AUTO 0.01 K/mm3 (0.00-0.23); BASOPHILS PERCENT AUTO 0 % (0-2); EOSINOPHILS ABSOLUTE AUTO 0.16 K/mm3 (0.00-0.68); EOSINOPHILS PERCENT AUTO 4 % (0-6); Hematocrit 36.1 % (37.0-53.0); Hemoglobin 11.8 g/dL (13.5-17.5); IMMATURE GRAN ABSOLUTE AUTO 0.01 K/mm3 (0.00-0.10); IMMATURE GRAN PERCENT AUTO 0 % (0-1); LYMPHOCYTES ABSOLUTE AUTO 0.66 K/mm3 (0.84-5.20); LYMPHOCYTES PERCENT AUTO 18 % (21-46); MONOCYTES ABSOLUTE AUTO 0.21 K/mm3 (0.16-1.47); MONOCYTES PERCENT AUTO 6 % (4-13); Mean Corpuscular HGB 29.3 pg (26.0-34.0); Mean Corpuscular HGB Conc 32.7 g/dL (31.5-36.5); Mean Corpuscular Volume 90 fL (80-100); Mean Platelet Volume 12.4 fL (9.1-12.4); NEUTROPHILS ABSOLUTE AUTO 2.65 K/mm3 (1.96-9.15); NEUTROPHILS PERCENT AUTO 72 % (41-73); Platelet Count 82 K/mm3 (150-400); RDW Coefficient Variation 14.2 % (11.7-14.2); RDW Standard Deviation 46.8 fL (35.1-46.3); Red Blood Cell Count 4.03 M/mm3 (4.30-5.90)
[2023-11-18 18:11] LABS: Alanine Aminotransfer (ALT/SGP 27 U/L (12-78); Albumin, Blood 3.2 g/dL (3.4-5.0); Albumin/Globulin Ratio 0.8 (0.8-1.8); Alk Phos 113 U/L (50-136); Anion Gap 10 mmol/L (3-11); Aspartate Aminotrans (AST/SGOT 24 U/L (12-37); Bilirubin, Total 0.4 mg/dL (0.1-1.0); Blood Urea Nitrogen 19 mg/dL (8-24); Bun/Creatinine Ratio 20.5 (12.0-20.0); CHOL/HDL RATIO 5.2; CO2, Blood 26 mmol/L (21-32); Calcium, Blood 9.5 mg/dL (8.5-10.1); Chloride, Blood 109 mmol/L (98-108); Cholesterol 147 mg/dL (50-200); Creatinine, Blood 0.93 mg/dL (0.60-1.20); Globulin, Blood 4.2 g/dL (2.2-4.0); Glomerular Filtration Rate 86 (60-); Glucose, Blood 217 mg/dL (70-99); HDL Cholesterol 28 mg/dL (>39); LDL/HDL RATIO 2.8; Low Density Lipoprotein Chol 79 mg/dL (0-110); Potassium, Blood 4.6 mmol/L (3.5-5.5); Sodium, Blood 140 mmol/L (136-145); Total Protein, Blood 7.4 g/dL (6.4-8.2); Triglycerides 202 mg/dL (30-160); Very Low Density Lipoprot Chol 40 mg/dL (6-32)
== END ==
LOC: LAB 16:15 → LAB SHORT 16:15
PROVIDERS: Nurse Practitioner Family
DX: E11.69 Type 2 diabetes mellitus with other specified complication (principal)
CPT/HCPCS: 80053; 80061; 85025

== ENCOUNTER → 2024-04-29 | Outpatient (CLI) | payer MEDICARE ==
[2024-04-29 13:51] LABS: International Normalized Ratio 1.7; Prothrombin Time Results 17.5 Sec (9.7-11.5)
== END ==
LOC: LAB 13:02 → LAB SHORT 13:02
PROVIDERS: Chiropractor
DX: Z51.81 Encounter for therapeutic drug level monitoring (principal); Z92.29 Personal history of other drug therapy; Z79.01 Long term (current) use of anticoagulants
CPT/HCPCS: 85610

== ENCOUNTER → 2024-05-26 | Outpatient (CLI) | payer MEDICARE | END | disposition home or self-care (01) | LOC: LAB 16:26 → LAB SHORT 16:26 | DX: S81.801A Unspecified open wound, right lower leg, initial encounter (principal) | CPT/HCPCS: 87070; 87077; 87147; 87186; 87205 ==

== ENCOUNTER 2024-06-04 12:57 | Emergency (ER) | payer MEDICARE ==
[~2024-06-04] VITALS: Ht 188 cm; Wt 104.3 kg
[2024-06-04 13:34] LABS: BASOPHILS ABSOLUTE AUTO 0.03 K/mm3 (0.00-0.23); BASOPHILS PERCENT AUTO 1 % (0-2); EOSINOPHILS ABSOLUTE AUTO 0.14 K/mm3 (0.00-0.68); EOSINOPHILS PERCENT AUTO 3 % (0-6); Hematocrit 32.8 % (37.0-53.0); Hemoglobin 10.6 g/dL (13.5-17.5); IMMATURE GRAN ABSOLUTE AUTO 0.01 K/mm3 (0.00-0.10); IMMATURE GRAN PERCENT AUTO 0 % (0-1); LYMPHOCYTES ABSOLUTE AUTO 0.56 K/mm3 (0.84-5.20); LYMPHOCYTES PERCENT AUTO 13 % (21-46); MONOCYTES ABSOLUTE AUTO 0.31 K/mm3 (0.16-1.47); MONOCYTES PERCENT AUTO 7 % (4-13); Mean Corpuscular HGB 29.2 pg (26.0-34.0); Mean Corpuscular HGB Conc 32.3 g/dL (31.5-36.5); Mean Corpuscular Volume 90 fL (80-100); Mean Platelet Volume 12.1 fL (9.1-12.4); NEUTROPHILS ABSOLUTE AUTO 3.21 K/mm3 (1.96-9.15); NEUTROPHILS PERCENT AUTO 75 % (41-73); Platelet Count 80 K/mm3 (150-400); RDW Coefficient Variation 14.6 % (11.7-14.2); RDW Standard Deviation 48.3 fL (35.1-46.3); Red Blood Cell Count 3.63 M/mm3 (4.30-5.90); White Blood Cell Count 4.26 K/mm3 (4.00-11.30)
[2024-06-04 13:38] LABS: Prothrombin Time Results 20.3 Sec (9.7-11.5)
[2024-06-04 13:47] LABS: Albumin, Blood 2.7 g/dL (3.4-5.0); Albumin/Globulin Ratio 0.6 (0.8-1.8); Bilirubin, Total 0.4 mg/dL (0.1-1.0); Calcium, Blood 9.1 mg/dL (8.5-10.1); Creatinine, Blood 1.1 mg/dL (0.60-1.20); Globulin, Blood 4.3 g/dL (2.2-4.0); Potassium, Blood 4.8 mmol/L (3.5-5.5)
[2024-06-04 14:45] VITALS: BP 166/86
== END 2024-06-04 15:17 | disposition home or self-care (01) ==
LOC: ER 12:57
PROVIDERS: Emergency Medicine
DX: S80.02XA Contusion of left knee, initial encounter (principal); S80.01XA Contusion of right knee, initial encounter; R55 Syncope and collapse; G47.33 Obstructive sleep apnea (adult) (pediatric); E11.9 Type 2 diabetes mellitus without complications; I11.0 Hypertensive heart disease with heart failure; I50.30 Unspecified diastolic (congestive) heart failure; K21.9 Gastro-esophageal reflux disease without esophagitis; I25.2 Old myocardial infarction; F17.210 Nicotine dependence, cigarettes, uncomplicated; Z86.73 Personal history of transient ischemic attack (TIA), and cerebral infarction without residual deficits; Z79.02 Long term (current) use of antithrombotics/antiplatelets; W19.XXXA Unspecified fall, initial encounter; Z79.899 Other long term (current) drug therapy; Z79.4 Long term (current) use of insulin; Z91.041 Radiographic dye allergy status; Z91.013 Allergy to seafood; Z88.0 Allergy status to penicillin; Z88.8 Allergy status to other drugs, medicaments and biological substances
CPT/HCPCS: 73562-LT; 73562-RT; 80053; 85025; 85610; 93005; 93010; 99285-25

== ENCOUNTER 2024-07-22 02:48 | Day surgery (SDC) | payer MEDICARE | END 2024-07-22 23:00 | disposition home or self-care (01) | LOC: WOUND 02:48 | DX: E11.622 Type 2 diabetes mellitus with other skin ulcer (principal); L97.822 Non-pressure chronic ulcer of other part of left lower leg with fat layer exposed; I87.2 Venous insufficiency (chronic) (peripheral); E11.51 Type 2 diabetes mellitus with diabetic peripheral angiopathy without gangrene; E11.40 Type 2 diabetes mellitus with diabetic neuropathy, unspecified; G47.30 Sleep apnea, unspecified; I10 Essential (primary) hypertension; K74.60 Unspecified cirrhosis of liver; F17.210 Nicotine dependence, cigarettes, uncomplicated; Z79.4 Long term (current) use of insulin; Z79.84 Long term (current) use of oral hypoglycemic drugs; Z88.0 Allergy status to penicillin; Z88.8 Allergy status to other drugs, medicaments and biological substances; Z91.013 Allergy to seafood; Z89.511 Acquired absence of right leg below knee | CPT/HCPCS: G0463 ==

== ENCOUNTER → 2024-08-05 | Day surgery (SDC) | payer MEDICARE ==
[~2024-08-05] MED LIST changes: +Lidocaine HCl 4% Cream 5 GM ONE
== END ==
LOC: WOUND 01:22
DX: E11.621 Type 2 diabetes mellitus with foot ulcer (principal); L97.522 Non-pressure chronic ulcer of other part of left foot with fat layer exposed; E11.622 Type 2 diabetes mellitus with other skin ulcer; L97.822 Non-pressure chronic ulcer of other part of left lower leg with fat layer exposed; I87.2 Venous insufficiency (chronic) (peripheral); E11.51 Type 2 diabetes mellitus with diabetic peripheral angiopathy without gangrene; E11.40 Type 2 diabetes mellitus with diabetic neuropathy, unspecified; F17.210 Nicotine dependence, cigarettes, uncomplicated
CPT/HCPCS: A9270

== ENCOUNTER 2024-08-12 00:53 | Day surgery (SDC) | payer MEDICARE ==
[~2024-08-12 00:53] MED LIST changes: -Lidocaine HCl 4% Cream 5 GM ONE
[2024-08-12] MEDS ORDERED: Lidocaine HCl 4% Cream 5 GM ONE (10:56)
== END 2024-08-12 23:00 | disposition home or self-care (01) ==
LOC: WOUND 00:53
DX: E11.621 Type 2 diabetes mellitus with foot ulcer (principal); L97.522 Non-pressure chronic ulcer of other part of left foot with fat layer exposed; E11.622 Type 2 diabetes mellitus with other skin ulcer; L97.822 Non-pressure chronic ulcer of other part of left lower leg with fat layer exposed; E11.51 Type 2 diabetes mellitus with diabetic peripheral angiopathy without gangrene; E11.40 Type 2 diabetes mellitus with diabetic neuropathy, unspecified; I87.2 Venous insufficiency (chronic) (peripheral); F17.210 Nicotine dependence, cigarettes, uncomplicated
CPT/HCPCS: A9270

== ENCOUNTER 2024-08-18 03:32 | Day surgery (SDC) | payer MEDICARE | END 2024-08-18 23:00 | disposition home or self-care (01) | LOC: WOUND 03:32 | DX: L97.822 Non-pressure chronic ulcer of other part of left lower leg with fat layer exposed (principal); L97.522 Non-pressure chronic ulcer of other part of left foot with fat layer exposed; L03.116 Cellulitis of left lower limb; E11.621 Type 2 diabetes mellitus with foot ulcer; E11.622 Type 2 diabetes mellitus with other skin ulcer; E11.51 Type 2 diabetes mellitus with diabetic peripheral angiopathy without gangrene; I87.2 Venous insufficiency (chronic) (peripheral); E11.40 Type 2 diabetes mellitus with diabetic neuropathy, unspecified; F17.210 Nicotine dependence, cigarettes, uncomplicated ==

== ENCOUNTER 2024-08-25 00:45 | Day surgery (SDC) | payer MEDICARE | END 2024-08-25 23:02 | disposition home or self-care (01) | LOC: WOUND 00:45 | DX: E11.621 Type 2 diabetes mellitus with foot ulcer (principal); L97.522 Non-pressure chronic ulcer of other part of left foot with fat layer exposed; E11.51 Type 2 diabetes mellitus with diabetic peripheral angiopathy without gangrene; E11.40 Type 2 diabetes mellitus with diabetic neuropathy, unspecified; I87.2 Venous insufficiency (chronic) (peripheral) | CPT/HCPCS: G0463 ==

== ENCOUNTER 2024-09-01 02:57 | Day surgery (SDC) | payer MEDICARE | END 2024-09-01 22:53 | disposition home or self-care (01) | LOC: WOUND 02:57 | DX: L97.522 Non-pressure chronic ulcer of other part of left foot with fat layer exposed (principal); S81.002A Unspecified open wound, left knee, initial encounter; X58.XXXA Exposure to other specified factors, initial encounter; I87.2 Venous insufficiency (chronic) (peripheral); E11.51 Type 2 diabetes mellitus with diabetic peripheral angiopathy without gangrene; E11.40 Type 2 diabetes mellitus with diabetic neuropathy, unspecified ==

== ENCOUNTER 2024-09-08 02:20 | Day surgery (SDC) | payer MEDICARE ==
[2024-09-08] MEDS ORDERED: Lidocaine HCl 4% Cream 5 GM ONE (09:12)
== END 2024-09-08 23:00 | disposition home or self-care (01) ==
LOC: WOUND 02:20
DX: E11.621 Type 2 diabetes mellitus with foot ulcer (principal); L97.422 Non-pressure chronic ulcer of left heel and midfoot with fat layer exposed; E11.51 Type 2 diabetes mellitus with diabetic peripheral angiopathy without gangrene; E11.40 Type 2 diabetes mellitus with diabetic neuropathy, unspecified; I87.2 Venous insufficiency (chronic) (peripheral); E11.622 Type 2 diabetes mellitus with other skin ulcer; L97.822 Non-pressure chronic ulcer of other part of left lower leg with fat layer exposed
CPT/HCPCS: A6213; A9270; G0463

== ENCOUNTER 2024-09-15 02:30 | Day surgery (SDC) | payer MEDICARE ==
[~2024-09-15 02:30] MED LIST changes: +BASAGLAR K100 UNIT/1 SC; -INSULIN GL100 UNIT/3 SC
== END 2024-09-15 23:00 | disposition home or self-care (01) ==
LOC: WOUND 02:30
DX: E11.621 Type 2 diabetes mellitus with foot ulcer (principal); L97.522 Non-pressure chronic ulcer of other part of left foot with fat layer exposed; E11.51 Type 2 diabetes mellitus with diabetic peripheral angiopathy without gangrene; E11.40 Type 2 diabetes mellitus with diabetic neuropathy, unspecified; I87.2 Venous insufficiency (chronic) (peripheral); I48.91 Unspecified atrial fibrillation; Z51.81 Encounter for therapeutic drug level monitoring
CPT/HCPCS: 36416; 85610; G0463

== ENCOUNTER 2024-09-18 16:06 | Inpatient (IN) | payer MEDICARE ==
[~2024-09-18] VITALS: Ht 182.9 cm; Wt 115.6 kg
[2024-09-18] MEDS ORDERED: FURO20 PO (17:09)
[2024-09-18] MEDS ORDERED: METF500 PO (17:09)
[2024-09-18] MEDS ORDERED: CELE200 PO (17:09)
[2024-09-18] MEDS ORDERED: WARF4 (17:10)
[2024-09-18] MEDS ORDERED: POTA10T PO (17:10)
[2024-09-18] MEDS ORDERED: PYRI100 (17:11)
[2024-09-18] MEDS ORDERED: Magnesium250 MG (17:11)
[2024-09-18] MEDS ORDERED: MECL25 PO (17:15)
[2024-09-18] MEDS ORDERED: HYDMOR4 (17:16)
[2024-09-18] MEDS ORDERED: QUET100 PO (17:16)
[2024-09-18] MEDS ORDERED: Cyclobenzaprine5 MG (17:16)
[2024-09-18 18:22] LABS: BASOPHILS ABSOLUTE AUTO 0.02 K/mm3 (0.00-0.23); BASOPHILS PERCENT AUTO 0 % (0-2); EOSINOPHILS ABSOLUTE AUTO 0.11 K/mm3 (0.00-0.68); EOSINOPHILS PERCENT AUTO 2 % (0-6); Hematocrit 38.4 % (37.0-53.0); IMMATURE GRAN ABSOLUTE AUTO 0.03 K/mm3 (0.00-0.10); IMMATURE GRAN PERCENT AUTO 1 % (0-1); LYMPHOCYTES ABSOLUTE AUTO 0.54 K/mm3 (0.84-5.20); LYMPHOCYTES PERCENT AUTO 8 % (21-46); MONOCYTES ABSOLUTE AUTO 0.39 K/mm3 (0.16-1.47); MONOCYTES PERCENT AUTO 6 % (4-13); Mean Corpuscular HGB 28.2 pg (26.0-34.0); Mean Corpuscular HGB Conc 31.3 g/dL (31.5-36.5); Mean Corpuscular Volume 90 fL (80-100); Mean Platelet Volume 12.7 fL (9.1-12.4); NEUTROPHILS ABSOLUTE AUTO 5.54 K/mm3 (1.96-9.15); NEUTROPHILS PERCENT AUTO 84 % (41-73); Platelet Count 68 K/mm3 (150-400); RDW Coefficient Variation 14.6 % (11.7-14.2); RDW Standard Deviation 48.3 fL (35.1-46.3); Red Blood Cell Count 4.25 M/mm3 (4.30-5.90); White Blood Cell Count 6.63 K/mm3 (4.00-11.30)
[2024-09-18 18:40] LABS: Albumin, Blood 3.3 g/dL (3.4-5.0); Albumin/Globulin Ratio 0.9 (0.8-1.8); Bun/Creatinine Ratio 22.3 (12.0-20.0); Calcium, Blood 9.3 mg/dL (8.5-10.1); Creatinine, Blood 0.99 mg/dL (0.60-1.20); Globulin, Blood 3.7 g/dL (2.2-4.0); Potassium, Blood 4.2 mmol/L (3.5-5.5)
[2024-09-18 18:57] LABS: Influenza A, PCR NEGATIVE (NEGATIVE); Influenza B, PCR NEGATIVE (NEGATIVE); Resp Syncytial Virus, PCR NEGATIVE (NEGATIVE); SARS-Cov-2 (COVID-19) PCR, MMC NEGATIVE (NEGATIVE)
[2024-09-18 19:12] LABS: International Normalized Ratio 2.39
[2024-09-18 20:02] LABS: Magnesium, Blood 1.8 mg/dL (1.6-2.4); Phosphorus, Blood 2.4 mg/dL (2.5-4.9)
[2024-09-18 20:17] LABS: Source, Urine Clean Catch
[2024-09-18 20:25] LABS: Appearance, Urine Clear (Clear); Bilirubin, Urine Neg (Neg); Blood, Urine 5+ (Neg); Color, Urine Yellow (P-Yellow); Glucose Qualitative, Urine 4+ (Neg); Ketones, Urine Neg (Neg); Leukocyte Esterase, Urine Neg (Neg); Nitrite, Urine Neg (Neg); Protein, Urine 3+ (Neg); Urobilinogen, Urine NORM (Normal)
[2024-09-18 20:54] LABS: Bacteria Few /hpf; Squamous Epithelial Cells Rare /hpf (Few); White Blood Cells, Urine 0-2 /hpf (0-5)
[2024-09-18] MEDS ORDERED: HEPARIN SODIUM,PORCINE/D5W 500 ML IV SCH (23:05)
[2024-09-18] MEDS ORDERED: Heparin Sodium,Porcine/0.5 NS 500 ML IV SCH (23:10)
[2024-09-18] MEDS ORDERED: Acetaminophen 325 MG TABLET PO PRN (23:25)
[2024-09-18] MEDS ORDERED: QUEtiapine Fumarate 100 MG Tab PO PRN (23:30)
[2024-09-18] MEDS ORDERED: Buprenorphine HCL/Naloxone HCL 8MG-2MG Tab SL PRN (23:30)
[2024-09-18] MEDS ORDERED: Meclizine HCl 25 MG Tab PO PRN (23:30)
[2024-09-18] MEDS ORDERED: Acetaminophen 500 MG Tab PO ONE (23:40)
[2024-09-18] MEDS ORDERED: CefTRIAXone Sodium 2,000 MG in NS 100 ML IV SCH (23:49)
[2024-09-19] MEDS ORDERED: Insulin Regular 100 UNIT/ML 10ML Vial SC SCH
[2024-09-19 00:03] LABS: Ethanol (Alcohol), Blood, Med <3 mg/dL
[2024-09-19 00:25] LABS: U Amphetamine Screen Not Detected; U Barbituate Screen Not Detected; U Benzodiazapine Screen Not Detected; U Buprenorphine Screen DETECTED; U Cannabinoids Screen Not Detected; U Cocaine Screen Not Detected; U Methadone Screen Not Detected; U Methamphetamine Screen Not Detected; U Opiates Screen Not Detected; U Oxycodone Screen Not Detected; U Phencyclidine Screen Not Detected
[2024-09-19] MEDS ORDERED: Albuterol 2.5 MG/3 ML VIAL INH PRN (00:45)
[2024-09-19 02:00] VITALS: BP 156/82
--- NOTE | 2024-09-19 04:48 | NUR ---
SHIFT SUMMARY/ADMIT NOTE PATIENT RECEIVED AT 0143 ON ROOM 360 WITH THE HISTORY OF CELLULITIES ON THE LEFT LOWER LIMB WITH DEEP VEIN THROMBOSIS.ON EXAMINATION REDNESS AND PITTING OEDEMA OF THE LEFT LOWER LIMB WHERE OBSERVED .RIGHT LOWER LIMB WAS AMPUTED BELOW THE KNEE WITH SLIGT REDNESS OF THE STUMP. BREATHING WAS COARSE WITH BILATERAL CRACKLES. PATIENT WAS ON THREE LITERS OF OXYGEN VIA FACE MASK,MALE PEUWICK INSTU ATTACTCHED TO THE SUCTIONING CUP.SPEACH WHERE SLURRED, A KNOWN CIGGRATE SMOKER,HE WAS ON FULL CODE, NIL PER ORAL PENDING TEST TOMORROW. WAS ON IV HEPARIN DRIP INSTU INSERTED AT THE RIGHT ACR AND ALSO ON LEFT ACR WITH LOCK. ALSO A KNOWN DIABETIC PATIENT ON INSULIN,NIL PRESCRIBED DRUG PENDING ,S REVIEW OF LAB RESULT. PATIENT WAS CHANGED TO HOSPITAL GOWN AND MADE COMFORTABE, BED LOWERED AND CALL LIGHT WHERE PLACE WITHIN REACH. GENERALIZED BODY WEAKNESS
[2024-09-19 05:39] LABS: BASOPHILS ABSOLUTE AUTO 0.02 K/mm3 (0.00-0.23); BASOPHILS PERCENT AUTO 0 % (0-2); EOSINOPHILS ABSOLUTE AUTO 0.09 K/mm3 (0.00-0.68); EOSINOPHILS PERCENT AUTO 2 % (0-6); Hematocrit 35.4 % (37.0-53.0); Hemoglobin 11.3 g/dL (13.5-17.5); IMMATURE GRAN ABSOLUTE AUTO 0.03 K/mm3 (0.00-0.10); IMMATURE GRAN PERCENT AUTO 1 % (0-1); LYMPHOCYTES ABSOLUTE AUTO 0.63 K/mm3 (0.84-5.20); LYMPHOCYTES PERCENT AUTO 10 % (21-46); MONOCYTES ABSOLUTE AUTO 0.42 K/mm3 (0.16-1.47); MONOCYTES PERCENT AUTO 7 % (4-13); Mean Corpuscular HGB Conc 31.9 g/dL (31.5-36.5); Mean Corpuscular Volume 91 fL (80-100); Mean Platelet Volume 12.1 fL (9.1-12.4); NEUTROPHILS PERCENT AUTO 81 % (41-73); Platelet Count 64 K/mm3 (150-400); RDW Coefficient Variation 14.6 % (11.7-14.2); RDW Standard Deviation 48.7 fL (35.1-46.3); Red Blood Cell Count 3.89 M/mm3 (4.30-5.90); White Blood Cell Count 6.09 K/mm3 (4.00-11.30)
[2024-09-19] MEDS ORDERED: Dose Adjust by Pharmacy XX STA (05:58)
[2024-09-19] MEDS ORDERED: Pantoprazole Sodium 40 MG Tab PO SCH (06:00)
[2024-09-19 06:01] LABS: Albumin, Blood 2.7 g/dL (3.4-5.0); Albumin/Globulin Ratio 0.8 (0.8-1.8); Bilirubin, Total 1.3 mg/dL (0.1-1.0); Bun/Creatinine Ratio 24.2 (12.0-20.0); Calcium, Blood 8.6 mg/dL (8.5-10.1); Creatinine, Blood 0.83 mg/dL (0.60-1.20); Globulin, Blood 3.6 g/dL (2.2-4.0); Magnesium, Blood 1.6 mg/dL (1.6-2.4); Potassium, Blood 4.3 mmol/L (3.5-5.5); Total Protein, Blood 6.3 g/dL (6.4-8.2)
[2024-09-19 07:15] VITALS: BP 132/72
[2024-09-19] MEDS ORDERED: Carvedilol 6.25 MG Tab PO SCH (08:00)
[2024-09-19] MEDS ORDERED: Docusate Sodium 100 MG Cap PO SCH (09:00)
[2024-09-19] MEDS ORDERED: Lactobacil 2-S.Thermo-Bifido 1 1 Cap PO SCH (09:00)
[2024-09-19] MEDS ORDERED: Insulin Glargine-Yfgn 100 Unit/mL 3 ML SYR SC SCH (09:00)
[2024-09-19] MEDS ORDERED: Tamsulosin HCl 0.4 MG Cap PO SCH (09:00)
[2024-09-19] MEDS ORDERED: Potassium Chloride 10 Meq Tablet SA PO SCH (09:00)
[2024-09-19] MEDS ORDERED: Clopidogrel Bisulfate 75 MG Tab PO SCH (09:00)
[2024-09-19] MEDS ORDERED: Cholecalciferol 1000 Unit Tablet (=25MCG) PO SCH (09:00)
[2024-09-19] MEDS ORDERED: Lisinopril 10 MG Tab PO SCH (09:00)
[2024-09-19] MEDS ORDERED: Gabapentin 300 MG Cap PO SCH (09:00)
[2024-09-19] MEDS ORDERED: Furosemide 20 MG Tab PO SCH (09:00)
[2024-09-19] MEDS ORDERED: Scopolamine Hydrobromide Patch TOP PRN (10:30)
[2024-09-19] MEDS ORDERED: Labetalol HCL 5 MG/ML 4ML Injection (Single Dose) IV PRN (11:25)
--- NOTE | 2024-09-19 16:23 | NUR ---
REVIEW OF CODE STATUS - SUPPORTIVE VISIT PT ELECTS FOR DNR STATUS WITH CONTINUING TREATMENTS. NEW POLST TO BE COMPLETED CLOSER TO DISCHARGE. MET WITH PATIENT "ABHISHEK" HIS OLYA AND GRANDSON TANK. QUICK REVIEW OF HOME LIFE THE LAST COUPLE OF WEEKS. PT WAS ABLE TO CONTRIBUTE TO CONVERSATION. HE WOULD DRIFT OFF OCCATIONALLY. OLYA REPORTS HIS LLE IS TWICE THE SIZE OF BASELINE IN THE LAST WEEK. HE IS NORMALLY TALKATIVE AND JOVIAL. TODAY HE IS WITHDRAWN T/O MOST OF VISIT. ORAL INTAKE HAS BEEN CONSISTANT UNTIL 2 DAYS AGO, WHEN HE STOPPED EATING AND ONLY SM AMT OF WATER. TODAY HIS URINE IS DARK ORANGE. PHONE CALL PLACED TO DR. CAMACHO TO REPORT RESULTS OF THIS VISIT. PROVIDER REPORTS HE WILL PLACE ORDER FOR DNR STATUS AND PASS TO RECEIVING PROVIDER TO EVALUATE NEED FOR WOUND CARE ORDERS. PT IS SEEN IN THE WOUND CLINIC WEEKLY. BEHAVIORAL ANALYST PRESENT FOR VISIT.
[2024-09-19] MEDS ORDERED: Pantoprazole Sodium 40 MG Injection IV SCH (16:30)
[2024-09-19 16:47] VITALS: BP 148/104
--- NOTE | 2024-09-19 17:24 | NUR ---
PT IS AO2-3 DEPENDING ON HOW TIRED HE IS. PT HAS BEEN RESTING IN BED AT TIMES HE HAS A LOT OF SPUTUM HERNANDEZ/YELLOW IN COLOR. PT WAS ABLE TO PUT HIS PROSTESIS ON R LEG AND WAS A 1-2 PERSON TRANSFER TO [facility]. PT WAS ABLE TO URINATE BETTER SITTING ON COMMODE. PT HAS BEEN RESTING FREQUENTLY, BUT AROUSES EASLILY. PT HAS CALL LIGHT IN REACH WILL CONTINUE TO MONITOR.
[2024-09-19 20:13] VITALS: BP 152/86
[2024-09-19] MEDS ORDERED: NS 250 ML IV PRN (20:25)
[2024-09-19] MEDS ORDERED: MethylPREDNISolone Sod Succ 125 MG Vial IV SCH (21:00)
--- NOTE | 2024-09-20 04:32 | NUR ---
SHIFT SUMMARY PT ALERT ORIENTED TO SELF AND PLACE VERY DROWSY AND WILL DRIFT OFF TO SLEEP WHILE TALKING TO HIM. MALE PUREWICK IN PLACE DRAINING TEA COLORED URINE. CONTINUES ON HEPARIN DRIP AT 18U/KG/HR OR 33.1 ML/HR. HES SCHEDULED TO HAVE A LUNG SCAN DONE THIS AM. NO C/O PAIN THIS SHIFT. LEFT LEG REMAINS RED WARM AND SWOLLEN. HE HAS A LARGE UMBILICAL HERNIA. REMAINS ON A CONTINUOUS PULSE OX. HE FAILED HIS ST EVAL SO HE REMAINS NPO. VSS SATTING AT 97% ON 3L VIA NC. REMAINS ON ROCEPHIN QDAY. HAD A PALLIATIVE CARE CONSULT YESTERDAY AND HES NOW A DNR. HIS GRANDSON CALLED AND I INFORMED HIM OF PTS CONDITION. HES RESTING IN BED AT THIS TIME WITH CALL LIGHT IN REACH
[2024-09-20 05:31] VITALS: BP 146/85
[2024-09-20 05:32] LABS: BASOPHILS ABSOLUTE AUTO 0.01 K/mm3 (0.00-0.23); BASOPHILS PERCENT AUTO 0 % (0-2); EOSINOPHILS PERCENT AUTO 0 % (0-6); Hematocrit 36.4 % (37.0-53.0); Hemoglobin 11.7 g/dL (13.5-17.5); IMMATURE GRAN ABSOLUTE AUTO 0.02 K/mm3 (0.00-0.10); IMMATURE GRAN PERCENT AUTO 0 % (0-1); LYMPHOCYTES ABSOLUTE AUTO 0.32 K/mm3 (0.84-5.20); LYMPHOCYTES PERCENT AUTO 6 % (21-46); MONOCYTES ABSOLUTE AUTO 0.08 K/mm3 (0.16-1.47); MONOCYTES PERCENT AUTO 2 % (4-13); Mean Corpuscular HGB Conc 32.1 g/dL (31.5-36.5); Mean Corpuscular Volume 90 fL (80-100); Mean Platelet Volume 12.6 fL (9.1-12.4); NEUTROPHILS ABSOLUTE AUTO 4.62 K/mm3 (1.96-9.15); NEUTROPHILS PERCENT AUTO 92 % (41-73); Platelet Count 59 K/mm3 (150-400); RDW Coefficient Variation 14.2 % (11.7-14.2); RDW Standard Deviation 47.5 fL (35.1-46.3); Red Blood Cell Count 4.04 M/mm3 (4.30-5.90); White Blood Cell Count 5.05 K/mm3 (4.00-11.30)
[2024-09-20] MEDS ORDERED: Dose Adjust by Pharmacy XX STA (05:52)
[2024-09-20 05:56] LABS: Bun/Creatinine Ratio 22.5 (12.0-20.0); Creatinine, Blood 0.8 mg/dL (0.60-1.20); Potassium, Blood 4.4 mmol/L (3.5-5.5)
[2024-09-20 07:12] VITALS: BP 134/73
[2024-09-20 08:12] LABS: Albumin, Blood 2.8 g/dL (3.4-5.0); Albumin/Globulin Ratio 0.8 (0.8-1.8); Bilirubin, Direct 0.4 mg/dL (0.0-0.3); Bilirubin, Indirect 0.5 mg/dL (0.1-0.7); Bilirubin, Total 0.9 mg/dL (0.1-1.0); Globulin, Blood 3.7 g/dL (2.2-4.0); Total Protein, Blood 6.5 g/dL (6.4-8.2)
[2024-09-20] MEDS ORDERED: Furosemide 10 MG/ML 4ML Vial IV SCH (09:00)
[2024-09-20 16:37] VITALS: BP 162/90
--- NOTE | 2024-09-20 17:00 | NUR ---
PT IS AOX3 AND MUCH MORE ALERT AND INTERACTIVE TODAY. PT HAS PERWICK IN PLACE AND IS VOIDING WELL TODAY. PT RESTING OFF AND ON FOR SHORTER PERIODS TODAY. NO DISTRESS NOTED AND FAMILY IS AT BEDSIDE. CALL LIGHT IS IN REACH WILL CONTINUE TO MONITOR.
[2024-09-20 20:18] VITALS: BP 124/77
[2024-09-20] MEDS ORDERED: QUEtiapine Fumarate 100 MG Tab PO SCH (21:00)
--- NOTE | 2024-09-21 03:58 | NUR ---
SHIFT SUMMARY PT AWAKE AND ALERT ORIENTED TO SELF AND PLACE ABLE TO VERBALIZE NEEDS. HAS BEEN STAYING AWAKE ALOT MORE LATELY. REMAINS ON HEPARIN DRIP AT 18U/KG/HR OR 33.1ML/HR. LABS TO BE DRAWN THIS AM. NO C/O PAIN THIS SHIFT. MALE PUREWICK INTACT DRAINING DARK MARK URINE. REMAINS ON 3L VIA NC SATTING AT 94%. REMAINS NPO DUE TO UNABLE TO SWALLOW. CONTINUES ON A CONTINUOUS PULSE OX. VSS WITH BP AT 124/77. ABDOMEN REMAINS DISTENDED WITH UMBILICAL HERNIA. FS DONE Q6HR WAS 276 AT 0000 AND COVERAGE WAS GIVEN. LEFT LEG REMAINS RED AND SWOLLEN BUT REDNESS IS DECREASING. HES RESTING IN BED AT THIS TIME WITH CALL LIGHT IN REACH
[2024-09-21 05:03] VITALS: BP 138/88
[2024-09-21] MEDS ORDERED: Dose Adjust by Pharmacy XX STA (05:03)
[2024-09-21 06:12] LABS: Hematocrit 34.5 % (37.0-53.0); Mean Platelet Volume 13.4 fL (9.1-12.4); Platelet Count 66 K/mm3 (150-400)
[2024-09-21 07:01] LABS: BASOPHILS ABSOLUTE AUTO 0.01 K/mm3 (0.00-0.23); BASOPHILS PERCENT AUTO 0 % (0-2); EOSINOPHILS ABSOLUTE AUTO 0.01 K/mm3 (0.00-0.68); EOSINOPHILS PERCENT AUTO 0 % (0-6); Hematocrit 34.9 % (37.0-53.0); Hemoglobin 11.1 g/dL (13.5-17.5); IMMATURE GRAN ABSOLUTE AUTO 0.07 K/mm3 (0.00-0.10); IMMATURE GRAN PERCENT AUTO 2 % (0-1); LYMPHOCYTES PERCENT AUTO 10 % (21-46); MONOCYTES ABSOLUTE AUTO 0.13 K/mm3 (0.16-1.47); MONOCYTES PERCENT AUTO 3 % (4-13); Mean Corpuscular HGB 28.2 pg (26.0-34.0); Mean Corpuscular HGB Conc 31.8 g/dL (31.5-36.5); Mean Corpuscular Volume 89 fL (80-100); NEUTROPHILS ABSOLUTE AUTO 3.43 K/mm3 (1.96-9.15); NEUTROPHILS PERCENT AUTO 85 % (41-73); Platelet Count 65 K/mm3 (150-400); RDW Coefficient Variation 14.1 % (11.7-14.2); RDW Standard Deviation 45.8 fL (35.1-46.3); Red Blood Cell Count 3.93 M/mm3 (4.30-5.90); White Blood Cell Count 4.05 K/mm3 (4.00-11.30)
[2024-09-21 07:02] LABS: Mean Platelet Volume 13.3 fL (9.1-12.4)
[2024-09-21 07:07] LABS: Albumin, Blood 2.6 g/dL (3.4-5.0); Albumin/Globulin Ratio 0.7 (0.8-1.8); Bilirubin, Total 0.5 mg/dL (0.1-1.0); Bun/Creatinine Ratio 32.5 (12.0-20.0); Creatinine, Blood 0.83 mg/dL (0.60-1.20); Globulin, Blood 3.8 g/dL (2.2-4.0); Potassium, Blood 4.7 mmol/L (3.5-5.5); Total Protein, Blood 6.4 g/dL (6.4-8.2)
[2024-09-21 07:29] VITALS: BP 153/79
[2024-09-21] MEDS ORDERED: Insulin Glargine-Yfgn 100 Unit/mL 3 ML SYR SC SCH ×2 (09:00→21:00)
[2024-09-21] MEDS ORDERED: Clopidogrel Bisulfate 75 MG Tab PO SCH (09:00)
[2024-09-21] MEDS ORDERED: Insulin Regular 100 UNIT/ML 10ML Vial SC SCH (13:10)
--- NOTE | 2024-09-21 13:25 | NUR ---
PT HAD A CBG OF [address] PERRY INSTRUCTED TO GIVE PT 7 UNITS OF HUMULIN. CALLED DR HODGE AND HE REQUEST PT TO HAVE CBG CHECKED BEFORE EATING LUNCH. AT 1254 PT HAD A CBG OF 398. DR HODGE WAS CALLED AND HE ORDERED HUMULIN TO BE AC AND HS WELL CHANGE TO MEDIUM SLIDING SCALE THEN GIVE DOSE NOW. WILL CONTINUE TO MONITOR.
[2024-09-21] MEDS ORDERED: Insulin Glargine-Yfgn 100 Unit/mL 3 ML SYR SC ONE (14:00)
[2024-09-21 15:35] VITALS: BP 147/91
[2024-09-21] MEDS ORDERED: Insulin Human Lispro 100 Units/ML 3ML Syringe SC SCH (16:30)
--- NOTE | 2024-09-21 17:12 | NUR ---
PT HAS BEEN DOING WELL TODAY. VERY HAPPY AND MUCH MORE AWAKE AOX3. PT WAS ABLE TO HAVE A DIET TODAY. CBGs HAVE BEEN HIGH PLEASE SEE PREVIOUS NOTE, TREATING PER EMAR. PT AWAKE AND TALKING WATCHING TV. CALL LIGHT IN REACH WILL CONTINUE TO MONITOR.
[2024-09-21 21:24] VITALS: BP 161/89
--- NOTE | 2024-09-22 04:27 | NUR ---
SHIFT SUMMARY PATIENT IS ALERT AND ORIENTED X3. PATIENT HAS HAD NO ACUTE EVENTS THIS SHIFT. VITAL SIGNS REVIEWED. PATIENT HAS BEEN PLEASENT AND COOPERATIVE WITH CARE. PATIENT HAS BEEN SATTING ABOVE 92 PERCENT ON ROOM AIR. PATIENT HAS HAD GOOD URINE OUTPUT USING MALE PUREWICK. PATIENT HAS HAD NO COMPLAINTS OF PAIN, NAUSEA, SOB OR VOMITTING THIS SHIFT. HEPARIN HAS BEEN RUNNING ALL SHIFT AT SAME RATE OF 33.1ML/HR. NO OTHER COMPLAINS NOTATED.
[2024-09-22 05:09] LABS: BASOPHILS PERCENT AUTO 0 % (0-2); EOSINOPHILS ABSOLUTE AUTO 0.01 K/mm3 (0.00-0.68); EOSINOPHILS PERCENT AUTO 0 % (0-6); Hematocrit 33.1 % (37.0-53.0); Hemoglobin 10.7 g/dL (13.5-17.5); IMMATURE GRAN ABSOLUTE AUTO 0.01 K/mm3 (0.00-0.10); IMMATURE GRAN PERCENT AUTO 0 % (0-1); LYMPHOCYTES ABSOLUTE AUTO 0.58 K/mm3 (0.84-5.20); LYMPHOCYTES PERCENT AUTO 14 % (21-46); MONOCYTES ABSOLUTE AUTO 0.27 K/mm3 (0.16-1.47); MONOCYTES PERCENT AUTO 7 % (4-13); Mean Corpuscular HGB 28.6 pg (26.0-34.0); Mean Corpuscular HGB Conc 32.3 g/dL (31.5-36.5); Mean Corpuscular Volume 89 fL (80-100); Mean Platelet Volume 12.3 fL (9.1-12.4); NEUTROPHILS ABSOLUTE AUTO 3.18 K/mm3 (1.96-9.15); NEUTROPHILS PERCENT AUTO 79 % (41-73); Platelet Count 67 K/mm3 (150-400); RDW Coefficient Variation 14.4 % (11.7-14.2); RDW Standard Deviation 46.4 fL (35.1-46.3); Red Blood Cell Count 3.74 M/mm3 (4.30-5.90); White Blood Cell Count 4.05 K/mm3 (4.00-11.30)
[2024-09-22 05:43] LABS: Albumin, Blood 2.7 g/dL (3.4-5.0); Albumin/Globulin Ratio 0.8 (0.8-1.8); Bilirubin, Total 0.4 mg/dL (0.1-1.0); Bun/Creatinine Ratio 39.6 (12.0-20.0); Creatinine, Blood 0.83 mg/dL (0.60-1.20); Globulin, Blood 3.6 g/dL (2.2-4.0); Potassium, Blood 4.3 mmol/L (3.5-5.5); Total Protein, Blood 6.3 g/dL (6.4-8.2)
[2024-09-22 05:54] VITALS: BP 172/99
[2024-09-22 06:03] VITALS: BP 166/113
[2024-09-22] MEDS ORDERED: Dose Adjust by Pharmacy XX STA (06:12)
--- NOTE | 2024-09-22 06:34 | NUR ---
NURSE NOTE YESSICA FROM INFECTION CONTROL INFORMED THIS RN THAT PATIENT IS POSITIVE FOR MRSA IN SPUTUM. DOES NOT NEED ISOLATION UNLESS COUGHING. PATIENT IS NOT COUGHING THIS SHIFT.
[2024-09-22 07:23] VITALS: BP 179/105
[2024-09-22] MEDS ORDERED: Insulin Glargine-Yfgn 100 Unit/mL 3 ML SYR SC SCH ×2 (09:00)
[2024-09-22 16:07] VITALS: BP 175/101
[2024-09-22] MEDS ORDERED: Apixaban 5 MG Tab PO SCH ×2 (18:00→20:00)
--- NOTE | 2024-09-22 18:41 | NUR ---
SHIFT SUMMARY: PT A&O X4 THIS SHIFT. PHYSICAL THERAPY ASSESSED PT THIS SHIFT RECOMMENDING REHAB AFTER DISCHARGE. PT ONE PERSON ASSIST c FWW USING PROSTHESIS. MALE PUREWICK IN PLACE DRAINING DARK YELLOW URINE. ELIQUIS ADDED IN PLACE OF HEPARIN DRIP. CALL LIGHT IN REACH. BED IN LOWEST POSITION.
[2024-09-22 19:16] VITALS: BP 168/94
--- NOTE | 2024-09-23 04:10 | NUR ---
SHIFT SUMMARY PATIENT IS ALERT AND ORIENTED X3. PATIENT HAS HAD NO ACUTE EVENTS THIS SHIFT. PATIENT HAS HAD NO COMPLAINTS OF SOB, NAUSEA, VOMITTING OR PAIN. PATIENT HAS BEEN RESTING MOST OF SHIFT. PATIENT HAS BEEN SATTING OVER 94 PERCENT ALL SHIFT ON ROOM AIR. IV ABX INFUSED ORDERED. BED IN LOCKED AND LOWEST POSITION. CALL LIGHT IN PLACE.
[2024-09-23 04:18] VITALS: BP 174/91
[2024-09-23 06:44] LABS: BASOPHILS PERCENT AUTO 0 % (0-2); EOSINOPHILS ABSOLUTE AUTO 0.05 K/mm3 (0.00-0.68); EOSINOPHILS PERCENT AUTO 1 % (0-6); Hematocrit 36.4 % (37.0-53.0); Hemoglobin 11.7 g/dL (13.5-17.5); IMMATURE GRAN ABSOLUTE AUTO 0.02 K/mm3 (0.00-0.10); IMMATURE GRAN PERCENT AUTO 1 % (0-1); LYMPHOCYTES ABSOLUTE AUTO 0.79 K/mm3 (0.84-5.20); LYMPHOCYTES PERCENT AUTO 23 % (21-46); MONOCYTES PERCENT AUTO 9 % (4-13); Mean Corpuscular HGB 28.2 pg (26.0-34.0); Mean Corpuscular HGB Conc 32.1 g/dL (31.5-36.5); Mean Corpuscular Volume 88 fL (80-100); Mean Platelet Volume 11.4 fL (9.1-12.4); NEUTROPHILS ABSOLUTE AUTO 2.32 K/mm3 (1.96-9.15); NEUTROPHILS PERCENT AUTO 67 % (41-73); Platelet Count 70 K/mm3 (150-400); RDW Coefficient Variation 14.5 % (11.7-14.2); RDW Standard Deviation 46.3 fL (35.1-46.3); Red Blood Cell Count 4.15 M/mm3 (4.30-5.90); White Blood Cell Count 3.48 K/mm3 (4.00-11.30)
[2024-09-23 06:53] LABS: Albumin, Blood 2.9 g/dL (3.4-5.0); Albumin/Globulin Ratio 0.8 (0.8-1.8); Bilirubin, Total 0.5 mg/dL (0.1-1.0); Calcium, Blood 9.4 mg/dL (8.5-10.1); Creatinine, Blood 0.86 mg/dL (0.60-1.20); Globulin, Blood 3.5 g/dL (2.2-4.0); Potassium, Blood 3.9 mmol/L (3.5-5.5); Total Protein, Blood 6.4 g/dL (6.4-8.2)
[2024-09-23 07:55] VITALS: BP 171/85
[2024-09-23] MEDS ORDERED: Tamsulosin HCl 0.4 MG Cap PO SCH (11:00)
[2024-09-23] MEDS ORDERED: Gabapentin 300 MG Cap PO SCH (11:00)
[2024-09-23] MEDS ORDERED: Lisinopril 10 MG Tab PO SCH (11:00)
[2024-09-23] MEDS ORDERED: Carvedilol 6.25 MG Tab PO SCH ×2 (11:00→11:04)
[2024-09-23] MEDS ORDERED: Furosemide 20 MG Tab PO SCH (12:00)
[2024-09-23 12:06] VITALS: BP 145/88
[2024-09-23 16:10] VITALS: BP 106/88
--- NOTE | 2024-09-23 16:40 | NUR ---
SHIFT SUMMARY PT WORKED WITH PHYSICAL THERAPY TODAY. 2P STAND PIVOT TRANSFER TO CHAIR. PT UP TO THE RECLINER AFTER A BED BATH TODAY. CURRENTLY RESTING THERE WITH EYE CLOSED AND BREATHING EVEN & UNLABORED. PT IN TO SEE THE PATIENT THIS AM, ASKING WHAT FACILITY HE WILL BE TAKEN TO, WAS INFORMED THAT IT IS UNKNOWN AT THIS TIME. DC PLANNING WORKING TO GET PT PLACED TO A SNF. NO OTHER ACUTE CHANGES IN ASSESSMENT AT THIS TIME. VS REVIEWED. CALL LIGHT IN REACH. DENIES OTHER NEEDS AT THIS TIME.
[2024-09-23 20:36] VITALS: BP 118/89
[2024-09-24 03:08] VITALS: BP 115/78
--- NOTE | 2024-09-24 04:24 | NUR ---
SHIFT SUMMARY PT ALERT ORIENTED TO SELF AND PLACE UNSURE WHAT MONTH OR YEAR IT IS. REQUIRES 1 PERSON ASSIST TO GET OUT OF BED. HE USED THE URINAL X 1 LAST NIGHT DRAINING DARK MARK URINE. REMAINS ON ROCEPHIN ORDERED FOR LLE DVT AND PNEUMONIA. HE WAS ON HEPARIN ON ADMIT BUT IS CURRENLY TAKING ELIQUIS. HES AWAITING SNF PLACEMENT. HES A RT BKA WITH HIS PROSTHESIS IN PLACE. VSS ON RA SATTING AT 95%. FS DONE AC AND HS WAS 211. RESTING IN BED AT THIS TIME WITH CALL LIGHT IN REACH
[2024-09-24 05:02] LABS: BASOPHILS ABSOLUTE AUTO 0.02 K/mm3 (0.00-0.23); BASOPHILS PERCENT AUTO 1 % (0-2); EOSINOPHILS ABSOLUTE AUTO 0.14 K/mm3 (0.00-0.68); EOSINOPHILS PERCENT AUTO 4 % (0-6); Hematocrit 32.9 % (37.0-53.0); Hemoglobin 10.9 g/dL (13.5-17.5); IMMATURE GRAN ABSOLUTE AUTO 0.03 K/mm3 (0.00-0.10); IMMATURE GRAN PERCENT AUTO 1 % (0-1); LYMPHOCYTES ABSOLUTE AUTO 0.79 K/mm3 (0.84-5.20); LYMPHOCYTES PERCENT AUTO 20 % (21-46); MONOCYTES ABSOLUTE AUTO 0.31 K/mm3 (0.16-1.47); MONOCYTES PERCENT AUTO 8 % (4-13); Mean Corpuscular HGB 29.1 pg (26.0-34.0); Mean Corpuscular HGB Conc 33.1 g/dL (31.5-36.5); Mean Corpuscular Volume 88 fL (80-100); Mean Platelet Volume 12.1 fL (9.1-12.4); NEUTROPHILS ABSOLUTE AUTO 2.67 K/mm3 (1.96-9.15); NEUTROPHILS PERCENT AUTO 68 % (41-73); Platelet Count 81 K/mm3 (150-400); RDW Coefficient Variation 14.4 % (11.7-14.2); RDW Standard Deviation 46.4 fL (35.1-46.3); Red Blood Cell Count 3.75 M/mm3 (4.30-5.90); White Blood Cell Count 3.96 K/mm3 (4.00-11.30)
[2024-09-24 05:45] LABS: Albumin, Blood 2.6 g/dL (3.4-5.0); Albumin/Globulin Ratio 0.8 (0.8-1.8); Bilirubin, Total 0.5 mg/dL (0.1-1.0); Calcium, Blood 8.7 mg/dL (8.5-10.1); Creatinine, Blood 1.04 mg/dL (0.60-1.20); Globulin, Blood 3.1 g/dL (2.2-4.0); Potassium, Blood 3.7 mmol/L (3.5-5.5); Total Protein, Blood 5.7 g/dL (6.4-8.2)
[2024-09-24 07:35] VITALS: BP 111/67
[2024-09-24] MEDS ORDERED: Lactobacil 2-S.Thermo-Bifido 1 1 Cap PO SCH (08:00)
[2024-09-24] MEDS ORDERED: ELIQUIS5 M2 PO (14:28)
--- NOTE | 2024-09-24 16:22 | NUR ---
assumed care of pt. pt very drowsy this morning, md in and discharge orders given pt hasnt had any c/o pain nor distress, pt stated that he was very sleepy and just wanted to rest and was tired of all the people bothering him. pt understands he is leaving at 1500 and was assisted to chair with one person assist. family visiting at bedside. 1500 pt assisted to wheelchair and taken to [facility]. report called in.
[2024-09-25] MEDS ORDERED: Apixaban 5 MG Tab PO SCH (21:00)
== END 2024-09-24 15:00 | DRG 299 ==
LOC: ER 16:06 → MEDS 23:21
PROVIDERS: Hospitalist; Student in an Organized Health Care Education/Training Program; ADMIT Student in an Organized Health Care Education/Training Program
DX: I82.412 Acute embolism and thrombosis of left femoral vein (principal); G92.8 Other toxic encephalopathy; J96.01 Acute respiratory failure with hypoxia; J18.9 Pneumonia, unspecified organism; I48.92 Unspecified atrial flutter; I50.32 Chronic diastolic (congestive) heart failure; M86.8X6 Other osteomyelitis, lower leg; Z16.12 Extended spectrum beta lactamase (ESBL) resistance; R18.8 Other ascites; Z96.641 Presence of right artificial hip joint; F17.210 Nicotine dependence, cigarettes, uncomplicated; K74.60 Unspecified cirrhosis of liver; D69.59 Other secondary thrombocytopenia; R53.81 Other malaise; Z66 Do not resuscitate; N40.0 Benign prostatic hyperplasia without lower urinary tract symptoms; G47.33 Obstructive sleep apnea (adult) (pediatric); G89.4 Chronic pain syndrome; I25.10 Atherosclerotic heart disease of native coronary artery without angina pectoris; K21.9 Gastro-esophageal reflux disease without esophagitis; E11.69 Type 2 diabetes mellitus with other specified complication; K80.20 Calculus of gallbladder without cholecystitis without obstruction; I11.0 Hypertensive heart disease with heart failure; R13.10 Dysphagia, unspecified; Z91.013 Allergy to seafood; Z88.8 Allergy status to other drugs, medicaments and biological substances; Z88.0 Allergy status to penicillin; Z91.041 Radiographic dye allergy status; Z79.51 Long term (current) use of inhaled steroids; Z79.85 Long-term (current) use of injectable non-insulin antidiabetic drugs; Z79.899 Other long term (current) drug therapy; Z79.84 Long term (current) use of oral hypoglycemic drugs; Z79.891 Long term (current) use of opiate analgesic; Z79.811 Long term (current) use of aromatase inhibitors; Z79.01 Long term (current) use of anticoagulants; Z86.14 Personal history of Methicillin resistant Staphylococcus aureus infection; I25.2 Old myocardial infarction; Z86.73 Personal history of transient ischemic attack (TIA), and cerebral infarction without residual deficits; Z89.511 Acquired absence of right leg below knee; Z90.89 Acquired absence of other organs; Z98.890 Other specified postprocedural states
CPT/HCPCS: 0241U; 36415; 70450; 71046; 74176; 78580; 80048; 80053; 80076; 80320; 81001; 82140; 82947; 83036; 83690; 83735; 84100; 84145; 85014; 85018; 85025; 85049; 85520; 85610; 85730; 87070; 87077; 87081; 87186; 87205; 87430; 92526; 92610; 93005; 93010; 93971; 94760; 94762; 97110; 97161; 97530; 99285-25; A9270; A9540; J0696; J1644; J1815; J1940; J2470; J2919; J7050

== ENCOUNTER 2024-09-28 10:50 | Inpatient (IN) | payer MEDICARE ==
[~2024-09-28] VITALS: Ht 182.9 cm; Wt 102.6 kg
[~2024-09-28 10:50] MED LIST changes: +CELE200 PO; +Cyclobenzaprine5 MG; +ELIQUIS5 M2 PO; +HYDMOR4; +MECL25 PO; +Magnesium250 MG PO; +POTA10T PO; +PYRI100; +QUET100 PO; +WARF4
[2024-09-28 11:04] LABS: Base Excess Venous 5.4 mmol/L; Bicarbonate Venous 28.7 mmol/L (24.0-30.0); pH Blood Venous 7.47 (7.34-7.37)
[2024-09-28] MEDS ORDERED: CefTRIAXone Sodium 1,000 MG in NS 100 ML IV ONE (11:15)
[2024-09-28] MEDS ORDERED: Azithromycin 500 MG in NS 250 ML IV ONE (11:15)
[2024-09-28 11:23] LABS: BASOPHILS ABSOLUTE AUTO 0.01 K/mm3 (0.00-0.23); BASOPHILS PERCENT AUTO 0 % (0-2); EOSINOPHILS ABSOLUTE AUTO 0.06 K/mm3 (0.00-0.68); EOSINOPHILS PERCENT AUTO 1 % (0-6); Hematocrit 31.9 % (37.0-53.0); Hemoglobin 10.2 g/dL (13.5-17.5); IMMATURE GRAN ABSOLUTE AUTO 0.03 K/mm3 (0.00-0.10); IMMATURE GRAN PERCENT AUTO 1 % (0-1); LYMPHOCYTES ABSOLUTE AUTO 0.48 K/mm3 (0.84-5.20); LYMPHOCYTES PERCENT AUTO 8 % (21-46); MONOCYTES ABSOLUTE AUTO 0.47 K/mm3 (0.16-1.47); MONOCYTES PERCENT AUTO 7 % (4-13); Mean Corpuscular HGB 29.5 pg (26.0-34.0); Mean Corpuscular Volume 92 fL (80-100); Mean Platelet Volume 12.4 fL (9.1-12.4); NEUTROPHILS ABSOLUTE AUTO 5.32 K/mm3 (1.96-9.15); NEUTROPHILS PERCENT AUTO 84 % (41-73); Platelet Count 84 K/mm3 (150-400); RDW Coefficient Variation 14.6 % (11.7-14.2); Red Blood Cell Count 3.46 M/mm3 (4.30-5.90); White Blood Cell Count 6.37 K/mm3 (4.00-11.30)
[2024-09-28] MEDS ORDERED: NS 1,000 ML IV SCH ×2 (11:25→17:00)
[2024-09-28 11:55] LABS: Albumin, Blood 2.9 g/dL (3.4-5.0); Albumin/Globulin Ratio 0.7 (0.8-1.8); Bilirubin, Total 0.9 mg/dL (0.1-1.0); Bun/Creatinine Ratio 28.7 (12.0-20.0); Calcium, Blood 8.9 mg/dL (8.5-10.1); Creatinine, Blood 1.29 mg/dL (0.60-1.20); Globulin, Blood 3.9 g/dL (2.2-4.0); Potassium, Blood 4.7 mmol/L (3.5-5.5); Total Protein, Blood 6.8 g/dL (6.4-8.2)
[2024-09-28 12:30] LABS: Influenza A, PCR NEGATIVE (NEGATIVE); Influenza B, PCR NEGATIVE (NEGATIVE); Resp Syncytial Virus, PCR NEGATIVE (NEGATIVE); SARS-Cov-2 (COVID-19) PCR, MMC NEGATIVE (NEGATIVE)
[2024-09-28] MEDS ORDERED: Meropenem 1,000 MG in NS 100 ML IV SCH (15:10)
[2024-09-28] MEDS ORDERED: Buprenorphine HCL/Naloxone HCL 8MG-2MG Tab SL PRN (15:15)
[2024-09-28] MEDS ORDERED: Albuterol HFA200 ACT/6.7 GM INH INH PRN (15:25)
[2024-09-28] MEDS ORDERED: Vancomycin HCL 2,000 MG in NS 500 ML IV ONE (15:45)
[2024-09-28] MEDS ORDERED: Metoprolol Tartrate 1 MG/ML 5 ML VIAL IV PRN (15:55)
[2024-09-28] MEDS ORDERED: Enoxaparin 40 MG/0.4 ML SYR SC SCH (16:00)
[2024-09-28] MEDS ORDERED: Insulin Human Lispro 100 Units/ML 3ML Syringe SC SCH (16:30)
[2024-09-28] MEDS ORDERED: Carvedilol 3.125 MG Tab PO SCH (17:00)
[2024-09-28 17:24] VITALS: BP 137/68
--- NOTE | 2024-09-28 18:29 | NUR ---
ASSUMPTION OF CARE: PATIENT ARRIVED TO PCU VIA GURNEY FROM ER AT 1700, RECEIVED REPORT FROM [facility] [facility]ER. PATIENT ALERT AND ORIENTED TO SELF, UNABLE TO MAKE NEEDS KNOWN. PATIENT CURRENTLY ON BIPAP WITH 4L O2 BLED IN, SPO2 85-89%. TELE IN PLACE, A FIB IN 80'S, UNABLE TO REPORT PRESENCE OF CHEST PAIN OR PRESSURE. ABDOMEN IS SOFT BUT DISTENDED, HX OF UMBILICAL HERNIA NOTED. PRESENCE OF RIGHT BKA NOTED, PROSTHESIS IN ROOM. BED IN LOWEST POSITION, BED RAILS X2 IN PLACE, CALL LIGHT WITHIN REACH, WILL CONTINUE TO FOLLOW CARE PLAN.
[2024-09-28 19:32] VITALS: BP 120/70
[2024-09-28 20:30] LABS: Source, Urine Straight Cath
[2024-09-28 20:35] LABS: Bilirubin, Urine Neg (Neg); Blood, Urine 4+ (Neg); Glucose Qualitative, Urine Neg (Neg); Ketones, Urine Neg (Neg); Leukocyte Esterase, Urine Neg (Neg); Nitrite, Urine Neg (Neg); Protein, Urine 2+ (Neg); Specific Gravity, Urine 1.015 (1.003-1.022); Urobilinogen, Urine NORM (Normal)
[2024-09-28 20:43] LABS: Appearance, Urine Clear (Clear); Color, Urine Yellow (P-Yellow)
[2024-09-28 20:44] LABS: Amorphous Light (0-Heavy); Bacteria Not Seen /hpf; Mucus Light (0-Heavy); Squamous Epithelial Cells Not Seen /hpf (Few); White Blood Cells, Urine 0-2 /hpf (0-5)
[2024-09-28] MEDS ORDERED: Lactobacil 2-S.Thermo-Bifido 1 1 Cap PO SCH (21:00)
[2024-09-28] MEDS ORDERED: Gabapentin 300 MG Cap PO SCH (21:00)
[2024-09-28] MEDS ORDERED: Enoxaparin 100 MG/ML 1ML SYR SC SCH (21:00)
[2024-09-28] MEDS ORDERED: Apixaban 5 MG Tab PO SCH (21:00)
[2024-09-28 22:01] LABS: Adenovirus Not Detected (NOT DETECT); Bordetella pertussis Not Detected (NOT DETECT); Chlamydophila pneumoniae Not Detected (NOT DETECT); Coronavirus 229E Not Detected (NOT DETECT); Coronavirus HKU1 Not Detected (NOT DETECT); Coronavirus NL63 Not Detected (NOT DETECT); Coronavirus OC43 Not Detected (NOT DETECT); Human Metapneumovirus Not Detected (NOT DETECT); Human Rhinovirus/Enterovirus Not Detected (NOT DETECT); Influenza A/2009-H1 Not Detected (NOT DETECT); Influenza A/H1 Not Detected (NOT DETECT); Influenza A/H3 Not Detected (NOT DETECT); Influenza B Not Detected (NOT DETECT); Mycoplasma pneumoniae Not Detected (NOT DETECT); Parainfluenza Virus 1 Not Detected (NOT DETECT); Parainfluenza Virus 2 Not Detected (NOT DETECT); Parainfluenza Virus 3 Not Detected (NOT DETECT); Parainfluenza Virus 4 Not Detected (NOT DETECT); Respiratory Syncytial Virus Not Detected (NOT DETECT); SARS-Cov-2 (COVID-19), BioFire Not Detected (NOT DETECT)
--- NOTE | 2024-09-28 23:15 | NUR ---
UPDATE ASSUMED CARE OF PT AT 1900, PT LETHARGIC, AROUSES TO VERBAL STIMULI, FOLLOWS COMMANDS, DOES NOT SPEAK, AND FALLS BACK TO SLEEP WHEN STIMULI STOPS, AFEBRILE, AFIB RHYTHM 90s, BP STABLE, REMAINS ON BIPAP 16/8 WITH 4 LPM O2, RESP SHALLOW AND UNLABORED, STRONG MOIST COUGH NOTED, SPUTUM THICK YELLOW COLLECTED AND SENT TO LAB, PUREWICK IN PLACE AND PT HAS NOT VOIDED, BLADDER SCAN DONE WITH NOTED 866 ML, NOTIFIED WITH NEW ORDERS FOR STRAIGHT CATH PER BLADDER MANAGEMENT PROTOCOL, 1025ML RETURNED WITH UA SENT TO LAB AND PUREWICK REPLACED, PT TOLERATED WELL, ABD ROUND AND DISTENDED WITH NOTED UMBILICAL HERNIA, HYPOACTIVE BOWELS SOUNDS, RIGHT BKA NOTED, LLE PEDAL PULSE PRESENT, PIV TO RIGHT FOREARM AND LEFT HAND PATENT, NS INFUSING AT 100 ML/HR, SIDE RAILS UP X3, BED ALARM ON, CALL LIGHT IN REACH
[2024-09-29 00:02] VITALS: BP 122/66
--- NOTE | 2024-09-29 01:36 | NUR ---
UPDATE 0030 PT AWAKE AND ALERT, ORIENTED TO SELF, PLACE AND SITUATION, STATES HE DOESNT KNOW WHAT YEAR IT IS, BUT KNOWS HE WAS "REALLY CONFUSED THIS MORNING BEFORE HE CAME TO THE HOSPITAL", FOLLOWS COMMANDS, BIPAP TAKEN OFF PER PT REQUEST AND PLACED ON 3 LPM NC TO KEEP SPO2>90%, PT WITH PRODUCTIVE COUGH GIVEN YAUNKERS AND COUGHING UP THICK YELLOW SPUTUM ORAL SUCTIONING SELF, ORAL CARE WITH MOUTH SWABS DONE AND APPLIED MOUTH MOISTURIZER, PT SITTING UP IN BED AND TALKING TO SELF, DENIES C/O PAIN OR SOB AT THIS TIME, SIDE RAILS UP X2, BED ALARM ON, CALL LIGHT IN REACH
--- NOTE | 2024-09-29 02:16 | NUR ---
UPDATE BLADDER SCAN DONE DUE TO PT NOT VOIDED SINCE STRAIGHT CATH DONE AT 2029, NOTED >305ML IN BLADDER, PUREWICK IN PLACE, PT ENCOURAGED TO VOID AND STATES "OK, BUT I DONT REALLY HAVE TO GO THAT BAD RIGHT NOW", WILL RESCAN IN 2 HOURS IF PT HASNT VOIDED BY THEN
[2024-09-29 04:37] VITALS: BP 134/75
[2024-09-29 04:37] LABS: BASOPHILS ABSOLUTE AUTO 0.01 K/mm3 (0.00-0.23); BASOPHILS PERCENT AUTO 0 % (0-2); EOSINOPHILS ABSOLUTE AUTO 0.08 K/mm3 (0.00-0.68); EOSINOPHILS PERCENT AUTO 2 % (0-6); Hematocrit 28.9 % (37.0-53.0); IMMATURE GRAN ABSOLUTE AUTO 0.02 K/mm3 (0.00-0.10); IMMATURE GRAN PERCENT AUTO 1 % (0-1); LYMPHOCYTES ABSOLUTE AUTO 0.55 K/mm3 (0.84-5.20); LYMPHOCYTES PERCENT AUTO 13 % (21-46); MONOCYTES ABSOLUTE AUTO 0.38 K/mm3 (0.16-1.47); MONOCYTES PERCENT AUTO 9 % (4-13); Mean Corpuscular HGB Conc 31.1 g/dL (31.5-36.5); Mean Corpuscular Volume 93 fL (80-100); Mean Platelet Volume 12.8 fL (9.1-12.4); NEUTROPHILS ABSOLUTE AUTO 3.11 K/mm3 (1.96-9.15); NEUTROPHILS PERCENT AUTO 75 % (41-73); Platelet Count 64 K/mm3 (150-400); RDW Coefficient Variation 14.6 % (11.7-14.2); RDW Standard Deviation 49.9 fL (35.1-46.3); White Blood Cell Count 4.15 K/mm3 (4.00-11.30)
[2024-09-29 04:58] LABS: Albumin, Blood 2.4 g/dL (3.4-5.0); Albumin/Globulin Ratio 0.7 (0.8-1.8); Bilirubin, Total 1.4 mg/dL (0.1-1.0); Bun/Creatinine Ratio 29.9 (12.0-20.0); Calcium, Blood 8.7 mg/dL (8.5-10.1); Creatinine, Blood 1.07 mg/dL (0.60-1.20); Globulin, Blood 3.6 g/dL (2.2-4.0); Potassium, Blood 4.2 mmol/L (3.5-5.5)
[2024-09-29] MEDS ORDERED: Pantoprazole Sodium 40 MG Tab PO SCH (06:00)
--- NOTE | 2024-09-29 06:17 | NUR ---
THIS RN AND STACEY RN SET UP TO COMPLETE STRAIGHT CATH DUE TO RETENTION PER PRIMARY RN. PT HAD LARGE VOID PRIOR TO CATH DURING SETUP, UNMEASURED BUT SOAKED BED. REPEAT BLADDER SCAN SHOWED 126-150ML AFTER VOID. NOTIFIED PRIMARY RN ANNITA AND PT CLEANED UP, BEDDING CHANGED AND BARRIER CREAM/INCONTINENCE WRAP APPLIED INSTEAD OF MALE PUREWIC DUE TO EXTENSIVE SKIN BREAKDOWN AROUND ADHESION AREA. PT TOLERATED WELL.
--- NOTE | 2024-09-29 06:22 | NUR ---
SHIFT SUMMARY PT MORE ALERT AND AWAKE , FOLLOWS COMMANDS, ON 2 AT 3 LPM FOR 3 HOURS AND NOW BACK ON BIPAP, AFIB RHYTHM 80-90s, BP STABLE, AFEBRILE BRIEF WITH INCONTINENCE WRAP REMAINS IN PLACE, REPOSITIONED FOR COMFORT, NS X1 LITER COMPLETED, PIV TO LEFT WRIST AND RIGHT FOREARM PATENT, PT REMAINS NPO, SIDE RAILS UP X2 CALL LIGHT IN REACH
[2024-09-29 06:51] LABS: Hematocrit 28.6 % (37.0-53.0); Mean Corpuscular HGB Conc 31.5 g/dL (31.5-36.5); Mean Corpuscular Volume 92 fL (80-100); Platelet Count 64 K/mm3 (150-400); RDW Coefficient Variation 14.6 % (11.7-14.2); RDW Standard Deviation 49.1 fL (35.1-46.3); White Blood Cell Count 4.04 K/mm3 (4.00-11.30)
[2024-09-29 06:59] LABS: Mean Platelet Volume 13.2 fL (9.1-12.4)
[2024-09-29 07:02] LABS: BAND PERCENT MAN 1 % (0-8); BASOPHILS PERCENT MAN 0 % (0-2); EOSINOPHILS PERCENT MAN 0 % (0-6); LYMPHOCYTES ABSOLUTE MAN 0.48 K/mm3 (0.84-5.20); LYMPHOCYTES PERCENT MAN 12 % (21-46); METAMYELOCYTE ABSOLUTE MAN 0.08 K/mm3 (0.00-0.00); METAMYELOCYTE PERCENT MAN 2 % (0-0); MONOCYTES ABSOLUTE MAN 0.28 K/mm3 (0.16-1.47); MONOCYTES PERCENT MAN 7 % (4-13); NEUTROPHILS ABSOLUTE MAN 3.19 K/mm3 (1.96-9.15); SEG NEUTROPHILS PERCENT MAN 78 % (41-73); TOTAL CELLS COUNTED 100
[2024-09-29 07:45] VITALS: BP 153/97
[2024-09-29 08:25] LABS: Base Excess Venous 4.6 mmol/L; Bicarbonate Venous 27.4 mmol/L (24.0-30.0); PCO2 Venous 52.5 mmHg (38-42); pH Blood Venous 7.37 (7.34-7.37)
[2024-09-29] MEDS ORDERED: Insulin Glargine-Yfgn 100 Unit/mL 3 ML SYR SC SCH (09:00)
[2024-09-29] MEDS ORDERED: Potassium Chloride 10 Meq Tablet SA PO SCH (09:00)
[2024-09-29] MEDS ORDERED: Misc. Tablet PO SCH (09:00)
[2024-09-29] MEDS ORDERED: Tamsulosin HCl 0.4 MG Cap PO SCH (09:00)
[2024-09-29] MEDS ORDERED: Lisinopril 10 MG Tab PO SCH (09:00)
[2024-09-29] MEDS ORDERED: Cholecalciferol 1000 Unit Tablet (=25MCG) PO SCH (09:00)
[2024-09-29 10:05] LABS: Acinetobacter baumannii DNA Not Detected copy/mL (NOT DETECT); CTX-M Resistance Gene Detected; Enterobacter cloacae DNA Not Detected copy/mL (NOT DETECT); Escherichia coli DNA Detected Bin >=10^7 copy/mL (NOT DETECT); Haemophilus influenzae DNA Not Detected copy/mL (NOT DETECT); Klebsiella aerogenes DNA Not Detected copy/mL (NOT DETECT); Klebsiella oxytoca DNA Not Detected copy/mL (NOT DETECT); Klebsiella pneumoniae DNA Not Detected copy/mL (NOT DETECT); Moraxella catarrhalis DNA Not Detected copy/mL (NOT DETECT); Proteus sp DNA Not Detected copy/mL (NOT DETECT); Pseudomonas aeruginosa DNA Not Detected copy/mL (NOT DETECT); Serratia marcescens DNA Not Detected copy/mL (NOT DETECT); Staphylococcus aureus DNA Not Detected copy/mL (NOT DETECT); Streptococcus agalactiae DNA Not Detected copy/mL (NOT DETECT); Streptococcus pneumoniae DNA Not Detected copy/mL (NOT DETECT); Streptococcus pyogenes DNA Not Detected copy/mL (NOT DETECT)
[2024-09-29 10:06] LABS: Adenovirus DNA Not Detected (NOT DETECT); Chlamydia pneumonia Not Detected (NOT DETECT); Human Coronavirus RNA Not Detected (NOT DETECT); IMP Resistance Gene Not Detected; KPC Resistance Gene Not Detected; Legionella pneumophila Not Detected (NOT DETECT); Mycoplasma pneumoniae Not Detected (NOT DETECT); NDM Resistance Gene Not Detected; OXA-48-like Resistance Gene Not Detected; VIM Resistance Gene Not Detected; mecA/C and MREJ Resist Gene Not Detected
[2024-09-29 10:07] LABS: Human Metapneumovirus RNA Not Detected (NOT DETECT); Influenza virus A RNA Not Detected (NOT DETECT); Influenza virus B RNA Not Detected (NOT DETECT); Parainfluenza virus RNA Not Detected (NOT DETECT); Respiratory syncytial Vir RNA Not Detected (NOT DETECT); Rhinovirus+Enterovirus RNA Not Detected (NOT DETECT)
[2024-09-29] MEDS ORDERED: Gabapentin 300 MG Cap PO SCH (14:00)
[2024-09-29 15:38] VITALS: BP 153/90
--- NOTE | 2024-09-29 16:48 | NUR ---
PALLIATIVE CARE NOTE: ATTEMPTED TO VISIT PT IN ROOM BUT HE WAS SLEEPING. POLST ON FILE FOUND BUT WAS NOT SIGNED BY MD. CHECKED REGISTRY BUT NONE AVAILABLE. POLST ON FILE DID HAVE DNR, SELECTIVE TREATMENT CHECKED AND WAS SIGNED BY PATIENT ON 08/22/23. PLACED POLST OUTSIDE PT ROOM AND REQUESTED PRIMARY RN TO CALL WHEN PT IS AWAKE OR TO COMPLETE WITH PT IF ABLE.
[2024-09-29] MEDS ORDERED: Carvedilol 6.25 MG Tab PO SCH (17:00)
[2024-09-29] MEDS ORDERED: Vancomycin HCL 1,750 MG in NS 500 ML IV SCH (17:00)
[2024-09-29 17:10] VITALS: BP 142/84
--- NOTE | 2024-09-29 17:15 | NUR ---
PT TRANSFERRED TO 351 REPORT GIVEN TO JAMILA GAMEZ. NO ACUTE CHANEG FOR THE SHIFT. DIET ABLE TO WORK WITH SPEECH THERAPIST DIET RESUMED, SOFT BITE SIZE, NECTAR THICK LIQUID AND MEDS WITH APPLESAUCE. PT ABLE TO TOLERATE DIET FOR THE SHIFT. PT WAS COUGHING UP THICK YELLOW SPUTUM PT ABLE TO USE SUCTION INDEPENDENTLY. PT ABLE TO WORK WITH PHYSICAL THERAPIST ABLE TO STAND AND TRANSFER TO CHAIR VIA WALKER 1PA, PROSTHESIS IN USE. PT ALERT AND ORIENTED X2-3 FORGETFUL AND SLOW TO RESPOND, AND SOME CONFUSION, OTHERWISE PLEASANT AND COOPERATIVE WITH CARES. VITALS HRR AFIB 70-90'S, SBP 150'S, SATS ABOVE 92% ON 3L OF O2, SOME SOB WITH EXERTION, BIPAP AT BEDSIDE, AFEBRILE. PT UNABLE TO VOID T/O SHIFT ATTENDS WAS DRY, BLADDER SCAN SHOWED >500MLS URINE RETAINED PT WAS STRAIGHT CATH PER PROTOCOL AND HAD 650MLS URINE OUT. NO OTHER ISSUES ENCOUNTERED FOR THE SHIFT. ALL BELONGINGS SENT WITH THE PT
[2024-09-29 19:53] VITALS: BP 123/73
[2024-09-29] MEDS ORDERED: NS 250 ML IV PRN (20:15)
[2024-09-29] MEDS ORDERED: Apixaban 5 MG Tab PO SCH (21:00)
[2024-09-29] MEDS ORDERED: Lactobacil 2-S.Thermo-Bifido 1 1 Cap PO SCH (21:00)
[2024-09-30 02:35] VITALS: BP 150/75
--- NOTE | 2024-09-30 04:07 | NUR ---
SHIFT SUMMARY PATIENT HAD NO ACUTE CHANGES. VERY MANZANITA AND TWO ASSIST TO BSC. RIGHT BKA. ON 4L O2 NC AND RA BASELINE. DENIES CHEST PAIN, SOB, AND N/V. VSS/AFEBRILE. CBG 175. PIVS INTACT. IV ABX INFUSED. SLEPT MOST OF THE SHIFT. CALL LIGHT IN REACH. BED IN LOWEST POSITION. WILL CONTINUE TO MONITOR UNTIL DAY SHIFT NURSE ASSUMES CARE.
[2024-09-30 06:02] LABS: BASOPHILS ABSOLUTE AUTO 0.01 K/mm3 (0.00-0.23); BASOPHILS PERCENT AUTO 0 % (0-2); EOSINOPHILS ABSOLUTE AUTO 0.11 K/mm3 (0.00-0.68); EOSINOPHILS PERCENT AUTO 3 % (0-6); Hematocrit 29.7 % (37.0-53.0); Hemoglobin 9.3 g/dL (13.5-17.5); IMMATURE GRAN ABSOLUTE AUTO 0.01 K/mm3 (0.00-0.10); IMMATURE GRAN PERCENT AUTO 0 % (0-1); LYMPHOCYTES ABSOLUTE AUTO 0.64 K/mm3 (0.84-5.20); LYMPHOCYTES PERCENT AUTO 19 % (21-46); MONOCYTES ABSOLUTE AUTO 0.25 K/mm3 (0.16-1.47); MONOCYTES PERCENT AUTO 7 % (4-13); Mean Corpuscular HGB 28.6 pg (26.0-34.0); Mean Corpuscular HGB Conc 31.3 g/dL (31.5-36.5); Mean Corpuscular Volume 91 fL (80-100); Mean Platelet Volume 12.6 fL (9.1-12.4); NEUTROPHILS ABSOLUTE AUTO 2.43 K/mm3 (1.96-9.15); NEUTROPHILS PERCENT AUTO 70 % (41-73); Platelet Count 76 K/mm3 (150-400); RDW Coefficient Variation 14.3 % (11.7-14.2); RDW Standard Deviation 48.2 fL (35.1-46.3); Red Blood Cell Count 3.25 M/mm3 (4.30-5.90); White Blood Cell Count 3.45 K/mm3 (4.00-11.30)
[2024-09-30 06:27] LABS: Albumin, Blood 2.5 g/dL (3.4-5.0); Albumin/Globulin Ratio 0.7 (0.8-1.8); Bilirubin, Total 0.8 mg/dL (0.1-1.0); Bun/Creatinine Ratio 23.3 (12.0-20.0); Calcium, Blood 9.1 mg/dL (8.5-10.1); Creatinine, Blood 0.95 mg/dL (0.60-1.20); Globulin, Blood 3.8 g/dL (2.2-4.0); Total Protein, Blood 6.3 g/dL (6.4-8.2)
[2024-09-30 07:30] VITALS: BP 161/98
[2024-09-30] MEDS ORDERED: Pantoprazole Sodium 40 MG Tab PO SCH (09:00)
[2024-09-30] MEDS ORDERED: Lisinopril 5 MG Tab PO SCH (09:00)
[2024-09-30] MEDS ORDERED: Tamsulosin HCl 0.4 MG Cap PO SCH (09:00)
[2024-09-30 15:30] VITALS: BP 120/69
--- NOTE | 2024-09-30 19:32 | NUR ---
SUMMARY- PT A/O X3, FORGETFUL, BED ALARM IN USE. PT FOUND THIS AM 1000 BED SATURATED WITH URINE, ATTENDS SATURATED, BED BATH MONICA LINENS CHANGED. PT WORKED WITH PHYSICAL THERAPY- ABLE TO STAND UP WITH RLE PROSTETIC, GAIT/WALKER, AMBULATES A FEW STEPS TO BSC, CONTINENT ALL DAY OF URINE IN BEDSIDE COMMODE. USED CALL LIGHT MOST OF THE TIME, BUT DID GET UP TO BED UNATTENDED, RESPONDED TO CALL LIGHT AND CHAIR ALARM IN TIME AND REMINDED TO USE CALL LIGHT. TOLERATING DIET, GRADUATED TO THIN LIQUIDS. VSS, ROOM AIR THROUGH OUT THE DAY, SATS 92-95%. PT HAS CRACKLES IN BASES, OCC STRONG COUGH. ZULEMA REDNESS, CLEANSED APPLIED SKIN BARRIER. REPORTED TO NOC FRANCO FORBES
[2024-09-30 20:27] VITALS: BP 131/70
--- NOTE | 2024-10-01 05:02 | NUR ---
SHIFT SUMMARY NOC PT A/O X 3. MILD CONFUSION AT TIMES, BUT PLEASANT AND COOPERATIVE WITH CARE. VSS. PT ON RA SPO2 >92% WHEN SPOT CHECKED. HS CBG 137 CNI. DURING ONE VOID PT HAD PINK TINGE NOTED IN URINE. PT POSSIBLE DISCHARGE TO EITHER [facility] OR [facility] TODAY. PT CURRENTLY RESTING WITH BED IN LOWEST POSITION, AND CALL LIGHT WITHIN REACH.
[2024-10-01 05:32] VITALS: BP 140/84
[2024-10-01 06:04] LABS: BASOPHILS ABSOLUTE AUTO 0.01 K/mm3 (0.00-0.23); BASOPHILS PERCENT AUTO 0 % (0-2); EOSINOPHILS PERCENT AUTO 3 % (0-6); Hematocrit 28.5 % (37.0-53.0); Hemoglobin 9.1 g/dL (13.5-17.5); IMMATURE GRAN ABSOLUTE AUTO 0.02 K/mm3 (0.00-0.10); IMMATURE GRAN PERCENT AUTO 1 % (0-1); LYMPHOCYTES ABSOLUTE AUTO 0.66 K/mm3 (0.84-5.20); LYMPHOCYTES PERCENT AUTO 19 % (21-46); MONOCYTES ABSOLUTE AUTO 0.27 K/mm3 (0.16-1.47); MONOCYTES PERCENT AUTO 8 % (4-13); Mean Corpuscular HGB 28.3 pg (26.0-34.0); Mean Corpuscular HGB Conc 31.9 g/dL (31.5-36.5); Mean Corpuscular Volume 89 fL (80-100); Mean Platelet Volume 11.9 fL (9.1-12.4); NEUTROPHILS ABSOLUTE AUTO 2.35 K/mm3 (1.96-9.15); NEUTROPHILS PERCENT AUTO 69 % (41-73); Platelet Count 87 K/mm3 (150-400); RDW Coefficient Variation 14.2 % (11.7-14.2); RDW Standard Deviation 45.9 fL (35.1-46.3); Red Blood Cell Count 3.22 M/mm3 (4.30-5.90); White Blood Cell Count 3.41 K/mm3 (4.00-11.30)
[2024-10-01 06:24] LABS: Albumin, Blood 2.4 g/dL (3.4-5.0); Albumin/Globulin Ratio 0.6 (0.8-1.8); Bilirubin, Total 0.6 mg/dL (0.1-1.0); Bun/Creatinine Ratio 21.1 (12.0-20.0); Calcium, Blood 8.6 mg/dL (8.5-10.1); Creatinine, Blood 0.95 mg/dL (0.60-1.20); Globulin, Blood 3.8 g/dL (2.2-4.0); Total Protein, Blood 6.2 g/dL (6.4-8.2)
[2024-10-01 07:16] VITALS: BP 119/61
--- NOTE | 2024-10-01 13:06 | NUR ---
DISCHARGE NOTE PT LEFT FOR [facility] AT 1300. TRANSPORT CAME TO [facility]ORT PT. PT A&O TO SELF/PERSON/PLACE, DIDN'T KNOW YEAR OR DATE. PT ADMITTED DUE TO ACUTE HYPOXIC RESP FAILURE. PT ON ROOM AIR SATS ARE 95%. ORAL CARE PREFORMED. PT UP IN CHAIR FOR MOST OF DAY. IV D/C. GAVE REPORT TO SHO GAMEZ. PT MADE NEEDS KNOWN, REPORTS NO CHEST PAIN/SOB/PAIN. PT ACHS, INSULIN COVERED. PT IS SBA W FWW TO BSC. PT HAS HX OF R BKA, PROSTHESIS IN PLACE. VSS. PT HAD IV ANTIBIOTIC THIS AM. PT LEFT WITH DISCHARGE INSTRUCTIONS.
[2024-10-01] MEDS ORDERED: FOLIC ACID0.8 MG PO (14:39)
[2024-10-01 20:45] LABS: MYELOPEROXIDASE (MPO) AB,IGG 0 AU/mL (0-19); SERINE PROTEINASE 3 PR3 AB,IGG 2 AU/mL (0-19)
[2024-10-01 23:47] LABS: IMMUNOGLOBULIN G 865 mg/dL (768-1632)
[2024-10-02 00:58] LABS: ANTI-NUCLEAR AB ANA,IGG ELISA None Detected (None Detected)
[2024-10-02 12:25] LABS: COMPLEMENT COMPONENT 3 163 mg/dL (90-180); COMPLEMENT COMPONENT 4 31 mg/dL (10-40)
== END 2024-10-01 13:04 | DRG 871 ==
LOC: ER 10:50 → MEDS 15:04 → ERHOLD 15:04 → PCU 15:04 → MEDS 09-29 17:01
PROVIDERS: Emergency Medicine; Family Medicine; Internal Medicine; ADMIT Internal Medicine
PROC: 3E03329 Introduction of Other Anti-infective into Peripheral Vein, Percutaneous Approach (ICD-10-PCS; principal; 2024-09-28)
PROC: 5A09457 Assistance with Respiratory Ventilation, 24-96 Consecutive Hours, Continuous Positive Airway Pressure (ICD-10-PCS; 2024-09-28)
DX: A41.51 Sepsis due to Escherichia coli [E. coli] (principal); J15.5 Pneumonia due to Escherichia coli; J96.01 Acute respiratory failure with hypoxia; J69.0 Pneumonitis due to inhalation of food and vomit; M86.8X6 Other osteomyelitis, lower leg; I48.92 Unspecified atrial flutter; I50.32 Chronic diastolic (congestive) heart failure; I48.20 Chronic atrial fibrillation, unspecified; Z16.12 Extended spectrum beta lactamase (ESBL) resistance; D61.818 Other pancytopenia; L97.419 Non-pressure chronic ulcer of right heel and midfoot with unspecified severity; E11.52 Type 2 diabetes mellitus with diabetic peripheral angiopathy with gangrene; Z66 Do not resuscitate; G47.33 Obstructive sleep apnea (adult) (pediatric); G89.4 Chronic pain syndrome; I25.10 Atherosclerotic heart disease of native coronary artery without angina pectoris; K21.9 Gastro-esophageal reflux disease without esophagitis; E11.69 Type 2 diabetes mellitus with other specified complication; I11.0 Hypertensive heart disease with heart failure; Z96.651 Presence of right artificial knee joint; Z96.641 Presence of right artificial hip joint; F17.210 Nicotine dependence, cigarettes, uncomplicated; D69.6 Thrombocytopenia, unspecified; N28.9 Disorder of kidney and ureter, unspecified; D63.8 Anemia in other chronic diseases classified elsewhere; K74.60 Unspecified cirrhosis of liver; N40.0 Benign prostatic hyperplasia without lower urinary tract symptoms; E11.621 Type 2 diabetes mellitus with foot ulcer; Z98.1 Arthrodesis status; Z91.013 Allergy to seafood; Z91.041 Radiographic dye allergy status; Z88.0 Allergy status to penicillin; Z88.8 Allergy status to other drugs, medicaments and biological substances; Z79.51 Long term (current) use of inhaled steroids; Z79.4 Long term (current) use of insulin; Z79.899 Other long term (current) drug therapy; Z79.84 Long term (current) use of oral hypoglycemic drugs; Z79.2 Long term (current) use of antibiotics; Z79.01 Long term (current) use of anticoagulants; Z79.891 Long term (current) use of opiate analgesic; Z79.811 Long term (current) use of aromatase inhibitors; Z86.73 Personal history of transient ischemic attack (TIA), and cerebral infarction without residual deficits; I25.2 Old myocardial infarction; Z98.890 Other specified postprocedural states; Z86.14 Personal history of Methicillin resistant Staphylococcus aureus infection; Z90.89 Acquired absence of other organs; Z79.02 Long term (current) use of antithrombotics/antiplatelets; Z89.511 Acquired absence of right leg below knee
CPT/HCPCS: 0202U; 0241U; 0528U; 36415; 51701; 71045; 80053; 81001; 82728; 82784; 82803; 82947; 83516; 83540; 83550; 83605; 83880; 84145; 84484; 85007; 85025; 85027; 85060; 86038; 86160; 87040; 92526; 92610; 93005; 93010; 94660; 94762; 96365; 96366; 96367; 97110; 97116; 97161; 97166; 97530; 97535; 99285-25; A9270; J0456; J0696; J1650; J1815; J2185; J3370; J7030; J7040; J7050

== ENCOUNTER 2024-10-04 05:56 | Emergency (ER) | payer OTHER, MEDICARE ==
[~2024-10-04] VITALS: Ht 182.9 cm; Wt 88.0 kg
[~2024-10-04 05:56] MED LIST changes: +FOLIC ACID0.8 MG PO
[2024-10-04 11:13] VITALS: BP 133/73
== END 2024-10-04 11:33 | disposition home or self-care (01) ==
LOC: ER 05:56
DX: Z04.3 Encounter for examination and observation following other accident (principal); E11.9 Type 2 diabetes mellitus without complications; K21.9 Gastro-esophageal reflux disease without esophagitis; I11.0 Hypertensive heart disease with heart failure; F17.210 Nicotine dependence, cigarettes, uncomplicated; Z91.041 Radiographic dye allergy status; Z88.8 Allergy status to other drugs, medicaments and biological substances; Z91.013 Allergy to seafood; Z88.0 Allergy status to penicillin; Z79.2 Long term (current) use of antibiotics; Z79.4 Long term (current) use of insulin; Z79.84 Long term (current) use of oral hypoglycemic drugs
CPT/HCPCS: 99284

== ENCOUNTER 2024-12-09 12:03 | Emergency (ER) | payer MEDICARE ==
[~2024-12-09] VITALS: Ht 182.9 cm; Wt 108.9 kg
[2024-12-09 13:12] LABS: BASOPHILS ABSOLUTE AUTO 0.01 K/mm3 (0.00-0.23); BASOPHILS PERCENT AUTO 0 % (0-2); EOSINOPHILS ABSOLUTE AUTO 0.19 K/mm3 (0.00-0.68); EOSINOPHILS PERCENT AUTO 5 % (0-6); Hematocrit 35.3 % (37.0-53.0); Hemoglobin 10.9 g/dL (13.5-17.5); IMMATURE GRAN ABSOLUTE AUTO 0.01 K/mm3 (0.00-0.10); IMMATURE GRAN PERCENT AUTO 0 % (0-1); LYMPHOCYTES ABSOLUTE AUTO 0.48 K/mm3 (0.84-5.20); LYMPHOCYTES PERCENT AUTO 12 % (21-46); MONOCYTES ABSOLUTE AUTO 0.26 K/mm3 (0.16-1.47); MONOCYTES PERCENT AUTO 7 % (4-13); Mean Corpuscular HGB Conc 30.9 g/dL (31.5-36.5); Mean Corpuscular Volume 90 fL (80-100); NEUTROPHILS ABSOLUTE AUTO 3.05 K/mm3 (1.96-9.15); NEUTROPHILS PERCENT AUTO 76 % (41-73); NRBC ABSOLUTE 0.00 K/mm3 (0.00-0.02); NRBC Auto 0.0 /100 WBC (0.0-0.2); Platelet Count 99 K/mm3 (150-400); RDW Coefficient Variation 14.8 % (11.7-14.2); RDW Standard Deviation 49.0 fL (35.1-46.3)
[2024-12-09 13:44] LABS: Alanine Aminotransfer (ALT/SGP 20.0 U/L (12-78); Albumin, Blood 2.8 g/dL (3.4-5.0); Albumin/Globulin Ratio 0.7 (0.8-1.8); Anion Gap 7.0 mmol/L (3-11); Aspartate Aminotrans (AST/SGOT 22.0 U/L (12-37); Bilirubin, Total 0.3 mg/dL (0.1-1.0); Blood Urea Nitrogen 16.0 mg/dL (8-24); CO2, Blood 27.0 mmol/L (21-32); Calcium, Blood 8.5 mg/dL (8.5-10.1); Chloride, Blood 108.0 mmol/L (98-108); Creatinine, Blood 1.01 mg/dL (0.60-1.20); Globulin, Blood 4.0 g/dL (2.2-4.0); Glucose, Blood 193.0 mg/dL (70-99); Potassium, Blood 4.7 mmol/L (3.5-5.5); Sodium, Blood 137.0 mmol/L (136-145); Total Protein, Blood 6.8 g/dL (6.4-8.2)
[2024-12-09] MEDS ORDERED: NS 1,000 ML IV SCH (13:45)
[2024-12-09] MEDS ORDERED: DiphenhydrAMINE HCl 50 MG/ML 1ML Vial IV ONE (14:10)
[2024-12-09 14:54] VITALS: BP 152/102
== END 2024-12-09 15:54 | disposition home or self-care (01) ==
LOC: ER 12:03
PROVIDERS: Emergency Medicine
DX: K42.9 Umbilical hernia without obstruction or gangrene (principal); E11.9 Type 2 diabetes mellitus without complications; I10 Essential (primary) hypertension; G47.30 Sleep apnea, unspecified; F17.200 Nicotine dependence, unspecified, uncomplicated; Z79.4 Long term (current) use of insulin; Z79.84 Long term (current) use of oral hypoglycemic drugs; Z79.01 Long term (current) use of anticoagulants; Z79.899 Other long term (current) drug therapy
CPT/HCPCS: 74177; 80053; 85025; 96374; 96375; 99284-25; J1200; J2919; J7030; Q9967

== ENCOUNTER 2024-12-12 15:29 | Emergency (ER) | payer MEDICARE ==
[~2024-12-12] VITALS: Ht 182.9 cm; Wt 108.9 kg
[2024-12-12 16:05] LABS: BASOPHILS ABSOLUTE AUTO 0.02 K/mm3 (0.00-0.23); BASOPHILS PERCENT AUTO 0 % (0-2); EOSINOPHILS ABSOLUTE AUTO 0.39 K/mm3 (0.00-0.68); EOSINOPHILS PERCENT AUTO 4 % (0-6); Hematocrit 34.3 % (37.0-53.0); Hemoglobin 10.8 g/dL (13.5-17.5); IMMATURE GRAN ABSOLUTE AUTO 0.03 K/mm3 (0.00-0.10); IMMATURE GRAN PERCENT AUTO 0 % (0-1); LYMPHOCYTES ABSOLUTE AUTO 0.30 K/mm3 (0.84-5.20); LYMPHOCYTES PERCENT AUTO 3 % (21-46); MONOCYTES ABSOLUTE AUTO 0.28 K/mm3 (0.16-1.47); MONOCYTES PERCENT AUTO 3 % (4-13); Mean Corpuscular HGB Conc 31.5 g/dL (31.5-36.5); Mean Corpuscular Volume 89 fL (80-100); NEUTROPHILS ABSOLUTE AUTO 8.07 K/mm3 (1.96-9.15); NEUTROPHILS PERCENT AUTO 89 % (41-73); NRBC ABSOLUTE 0.00 K/mm3 (0.00-0.02); NRBC Auto 0.0 /100 WBC (0.0-0.2); Platelet Count 110 K/mm3 (150-400); RDW Coefficient Variation 14.8 % (11.7-14.2); RDW Standard Deviation 48.5 fL (35.1-46.3)
[2024-12-12 16:35] LABS: Alanine Aminotransfer (ALT/SGP 20.0 U/L (12-78); Albumin, Blood 2.8 g/dL (3.4-5.0); Albumin/Globulin Ratio 0.7 (0.8-1.8); Anion Gap 7.0 mmol/L (3-11); Aspartate Aminotrans (AST/SGOT 19.0 U/L (12-37); Bilirubin, Total 0.6 mg/dL (0.1-1.0); Blood Urea Nitrogen 18.0 mg/dL (8-24); CO2, Blood 27.0 mmol/L (21-32); Calcium, Blood 9.0 mg/dL (8.5-10.1); Chloride, Blood 103.0 mmol/L (98-108); Creatinine, Blood 0.94 mg/dL (0.60-1.20); Globulin, Blood 4.1 g/dL (2.2-4.0); Glucose, Blood 197.0 mg/dL (70-99); Potassium, Blood 4.1 mmol/L (3.5-5.5); Sodium, Blood 133.0 mmol/L (136-145); Total Protein, Blood 6.9 g/dL (6.4-8.2)
[2024-12-12] MEDS ORDERED: Trimethoprim/Sulfamethoxazole DS Tab PO ONE (17:25)
[2024-12-12 18:40] VITALS: BP 148/71
== END 2024-12-12 19:01 | disposition home or self-care (01) ==
LOC: ER 15:29
PROVIDERS: Student in an Organized Health Care Education/Training Program
DX: R21 Rash and other nonspecific skin eruption (principal); G47.33 Obstructive sleep apnea (adult) (pediatric); E11.9 Type 2 diabetes mellitus without complications; I10 Essential (primary) hypertension; K21.9 Gastro-esophageal reflux disease without esophagitis; I25.2 Old myocardial infarction; F17.210 Nicotine dependence, cigarettes, uncomplicated; Z86.73 Personal history of transient ischemic attack (TIA), and cerebral infarction without residual deficits; Z79.899 Other long term (current) drug therapy; Z79.84 Long term (current) use of oral hypoglycemic drugs; Z79.4 Long term (current) use of insulin; Z91.041 Radiographic dye allergy status; Z88.0 Allergy status to penicillin; Z88.8 Allergy status to other drugs, medicaments and biological substances; Z91.013 Allergy to seafood
CPT/HCPCS: 80053; 83605; 83690; 85025; 93005; 93010; 99284-25; A9270

== ENCOUNTER 2024-12-29 14:43 | Inpatient (IN) | payer MEDICARE ==
[~2024-12-29] VITALS: Ht 182.9 cm; Wt 110.0 kg
[2024-12-29 15:08] LABS: BASOPHILS ABSOLUTE AUTO 0.03 K/mm3 (0.00-0.23); BASOPHILS PERCENT AUTO 1 % (0-2); EOSINOPHILS ABSOLUTE AUTO 0.25 K/mm3 (0.00-0.68); EOSINOPHILS PERCENT AUTO 5 % (0-6); Hematocrit 35.5 % (37.0-53.0); Hemoglobin 11.0 g/dL (13.5-17.5); IMMATURE GRAN ABSOLUTE AUTO 0.02 K/mm3 (0.00-0.10); IMMATURE GRAN PERCENT AUTO 0 % (0-1); LYMPHOCYTES ABSOLUTE AUTO 0.64 K/mm3 (0.84-5.20); LYMPHOCYTES PERCENT AUTO 14 % (21-46); MONOCYTES ABSOLUTE AUTO 0.26 K/mm3 (0.16-1.47); MONOCYTES PERCENT AUTO 6 % (4-13); Mean Corpuscular HGB Conc 31.0 g/dL (31.5-36.5); Mean Corpuscular Volume 87 fL (80-100); NEUTROPHILS ABSOLUTE AUTO 3.50 K/mm3 (1.96-9.15); NEUTROPHILS PERCENT AUTO 75 % (41-73); NRBC ABSOLUTE 0.00 K/mm3 (0.00-0.02); NRBC Auto 0.0 /100 WBC (0.0-0.2); Platelet Count 142 K/mm3 (150-400); RDW Coefficient Variation 14.5 % (11.7-14.2); RDW Standard Deviation 46.7 fL (35.1-46.3)
[2024-12-29 15:36] LABS: Alanine Aminotransfer (ALT/SGP 18.0 U/L (12-78); Albumin, Blood 2.8 g/dL (3.4-5.0); Albumin/Globulin Ratio 0.7 (0.8-1.8); Anion Gap 4.0 mmol/L (3-11); Aspartate Aminotrans (AST/SGOT 20.0 U/L (12-37); Bilirubin, Total 0.6 mg/dL (0.1-1.0); Blood Urea Nitrogen 17.0 mg/dL (8-24); CO2, Blood 29.0 mmol/L (21-32); Calcium, Blood 9.0 mg/dL (8.5-10.1); Chloride, Blood 106.0 mmol/L (98-108); Creatinine, Blood 1.04 mg/dL (0.60-1.20); Globulin, Blood 4.2 g/dL (2.2-4.0); Glucose, Blood 177.0 mg/dL (70-99); Potassium, Blood 4.4 mmol/L (3.5-5.5); Sodium, Blood 135.0 mmol/L (136-145); Total Protein, Blood 7.0 g/dL (6.4-8.2)
[2024-12-29 17:43] LABS: Source, Urine Voided
[2024-12-29 17:48] LABS: Bilirubin, Urine Neg (Neg); Color, Urine Yellow (P-Yellow); Glucose Qualitative, Urine Neg (Neg); Ketones, Urine Neg (Neg); Leukocyte Esterase, Urine 3+ (Neg); Protein, Urine 2+ (Neg); Specific Gravity, Urine 1.015 (1.003-1.022); Urobilinogen, Urine NORM (Normal)
[2024-12-29 17:57] LABS: White Blood Cells, Urine 25-50 /hpf (0-5)
[2024-12-29 17:58] LABS: Red Blood Cells, Urine 25-50 /hpf (0-2)
[2024-12-29] MEDS ORDERED: Ondansetron HCl 2 MG / ML 2ML Vial IV ONE (19:05)
[2024-12-29] MEDS ORDERED: HYDROmorphone HCl/Pf 1MG SYR IV ONE ×2 (19:05→20:15)
[2024-12-29] MEDS ORDERED: Cefepime HCl 2,000 MG in NS 100 ML IV ONE (19:05)
[2024-12-29 19:40] LABS: Prothrombin Time Results 12.0 Sec (9.7-11.5)
[2024-12-29] MEDS ORDERED: Diltiazem HCl 5 MG / ML 5ML Vial IV ONE (21:50)
[2024-12-29] MEDS ORDERED: Ondansetron HCl 2 MG / ML 2ML Vial IV PRN (23:05)
[2024-12-29] MEDS ORDERED: HYDROmorphone HCl/Pf 1MG SYR IV PRN (23:30)
[2024-12-29] MEDS ORDERED: Ipratropium/Albuterol SulF 2.5-0.5MG/3 ML Amp INH PRN (23:40)
[2024-12-29 23:50] LABS: pH Blood Venous 7.46 (7.34-7.37)
[2024-12-30] VITALS (72 sets, daily range): BP systolic 76–132; BP diastolic 53–100
[2024-12-30] MEDS ORDERED: Vancomycin (Pharmacy Consult) IV SCH
[2024-12-30 00:25] LABS: C-REACTIVE PROTEIN, EXT RANGE 1.79 mg/dL (0.000-0.300)
[2024-12-30 00:35] LABS: Thyroid Stimulating Hormone 0.938 uIU/mL (0.360-4.800)
[2024-12-30 00:42] LABS: Magnesium, Blood 1.1 mg/dL (1.6-2.4); Phosphorus, Blood 2.4 mg/dL (2.5-4.9)
[2024-12-30] MEDS ORDERED: Magnesium Sulf 2 GM/Water 50ML 50 ML IV ONE (01:00)
[2024-12-30] MEDS ORDERED: NS 250 ML IV PRN (01:20)
--- NOTE | 2024-12-30 02:46 | NUR ---
pATIENT HAS A MOHR AND MOVES HIS MOUTH ALOT WITCH CAUSES A LARGE LEAK OF 60. PATIENT SEEMS TO BE COMFORTABLE OPN THE CPAP.
[2024-12-30 05:03] LABS: BASOPHILS ABSOLUTE AUTO 0.02 K/mm3 (0.00-0.23); BASOPHILS PERCENT AUTO 0 % (0-2); EOSINOPHILS ABSOLUTE AUTO 0.16 K/mm3 (0.00-0.68); EOSINOPHILS PERCENT AUTO 1 % (0-6); Hematocrit 34.4 % (37.0-53.0); Hemoglobin 10.7 g/dL (13.5-17.5); IMMATURE GRAN ABSOLUTE AUTO 0.04 K/mm3 (0.00-0.10); IMMATURE GRAN PERCENT AUTO 0 % (0-1); LYMPHOCYTES ABSOLUTE AUTO 0.16 K/mm3 (0.84-5.20); LYMPHOCYTES PERCENT AUTO 1 % (21-46); MONOCYTES ABSOLUTE AUTO 0.24 K/mm3 (0.16-1.47); MONOCYTES PERCENT AUTO 2 % (4-13); Mean Corpuscular HGB Conc 31.1 g/dL (31.5-36.5); Mean Corpuscular Volume 88 fL (80-100); NEUTROPHILS ABSOLUTE AUTO 10.56 K/mm3 (1.96-9.15); NEUTROPHILS PERCENT AUTO 95 % (41-73); NRBC ABSOLUTE 0.00 K/mm3 (0.00-0.02); NRBC Auto 0.0 /100 WBC (0.0-0.2); Platelet Count 148 K/mm3 (150-400); RDW Coefficient Variation 14.6 % (11.7-14.2); RDW Standard Deviation 46.9 fL (35.1-46.3)
[2024-12-30 05:16] LABS: Anion Gap 3.0 mmol/L (3-11); Blood Urea Nitrogen 17.0 mg/dL (8-24); CO2, Blood 28.0 mmol/L (21-32); Calcium, Blood 8.6 mg/dL (8.5-10.1); Chloride, Blood 110.0 mmol/L (98-108); Creatinine, Blood 1.14 mg/dL (0.60-1.20); Glucose, Blood 135.0 mg/dL (70-99); Magnesium, Blood 1.4 mg/dL (1.6-2.4); Potassium, Blood 4.1 mmol/L (3.5-5.5); Sodium, Blood 137.0 mmol/L (136-145)
--- NOTE | 2024-12-30 05:38 | NUR ---
SHIFT SUMMARY: PT ARRIVED TO ICU RM 11 AT 0042. PT TRANSFERRED VIA GURNEY TO ICU, OCCOMPANIED BY ED RN. REPORT RECEIVED FROM JOVANI GAMEZ, PRIOR TO PTS ARRIVAL. PT WAS ALERT BUT DROWSY, ORIENTED TO SELF AND COULD STATE TOWN AND THAT HE WAS AT THE HOSPITAL. PT COOPERATIVE AND ABLE TO FOLLOW COMMANDS. PT ABLE TO MOVE ABOUT IN BED, THOUGH LIMITED DUE TO SIZE OF HIS ABD AND PRIOR R BKA. PT NOTED TO BE IN AFIB, W/PRIOR HX OF. TACHY IN THE 100S-160S. DENIED CHEST PAIN. CARDIZEM DRIP STARTED AROUND 0300- SEE EMAR- CONTINUES TO INFUSE AT 5MG/HR. PT ON 4L O2 ON ARRIVAL, VIA MAXIMIZER MASK. PT ENDORSES SOB W/ACTIVITY. SATS >90%. PT PLACED ON CPAP WHILE ASLEEP, TOLERATING WELL. FIO2 AT 35% WITH SATS MAINTAINING. LUNGS COARSE T/O W/EXPIRATORY WHEEZING. ABD DISTENDED, BT HYPOACTIVE X4. ABD FIRM. PT USING URINAL W/ MIN ASSIST. PT HAS PRIOR R BKA, PROSTHETIC LEG REMOVED. SKIN NOTED TO HAVE SCATTERED SCABS T/O BILAT LE. PHOTOS TAKEN AND PLACED IN PTS CHART. PIV ACCESS IN RAC AND LFA. THIS RN TO CONTINUE TO MONITOR AND REPORT TO ONCOMING RN.
[2024-12-30] MEDS ORDERED: Mag Sulfate 1 GM/D5% 100ML 100 ML IV ONE (06:15)
[2024-12-30] MEDS ORDERED: Sodium Phosphate 20 MM in Dextrose 5% 500 ML IV ONE (06:45)
[2024-12-30] MEDS ORDERED: FentaNYL Citrate 50 MCG/ML 2 ML Injection IV PRN (08:45)
[2024-12-30] MEDS ORDERED: Furosemide 10 MG / ML 2ML Vial IV ONE (08:45)
[2024-12-30] MEDS ORDERED: Lactobacil 2-S.Thermo-Bifido 1 1 Cap PO SCH (09:00)
[2024-12-30] MEDS ORDERED: Pantoprazole Sodium 40 MG Injection IV SCH (09:00)
[2024-12-30] MEDS ORDERED: Albumin (Human) 25gm/100ml 100 ML IV SCH (10:45)
--- NOTE | 2024-12-30 11:13 | NUR ---
Spiritual Care Visit Attempted. After Pts. visitors departed, this noise abatement engineer attempted to visit with the Pt. Pt. is somnolent and did not respond to multiple calls. Will remain available to Pt. and family.
[2024-12-30] MEDS ORDERED: Insulin Regular 100 UNIT/ML 10ML Vial SC SCH (12:00)
[2024-12-30] MEDS ORDERED: FEROSUL325 M1 PO (14:39)
--- NOTE | 2024-12-30 18:29 | NUR ---
PATIENT TRANSITIONED FROM IV DILTIAZEM TO PO METOPROLOL. TOLERATED TRANISITION HR 70S-80S. CLEAR LIQUID DIET STARTED. SLIDING SCALE PLACED. ACHS BG CHECKS. PATIENT WHEEZING ALOT WHEN GETTING OUT OF BED TO USE THE BATHROOM. HE REFUSES TO USE BEDPAN OR URINAL. VERY WINDED WITH MOVEMENT. SBP BETWEEN 90S-120S. STILL WAITING ON TRANSFER TO [facility]. PATIENT PCU STATUS
[2024-12-31] VITALS (34 sets, daily range): BP systolic 106–148; BP diastolic 57–93
[2024-12-31 04:50] LABS: Hematocrit 30.7 % (37.0-53.0); Hemoglobin 9.7 g/dL (13.5-17.5); Mean Corpuscular HGB Conc 31.6 g/dL (31.5-36.5); Mean Corpuscular Volume 88 fL (80-100); NRBC ABSOLUTE 0.00 K/mm3 (0.00-0.02); NRBC Auto 0.0 /100 WBC (0.0-0.2); Platelet Count 147 K/mm3 (150-400); RDW Coefficient Variation 14.6 % (11.7-14.2); RDW Standard Deviation 47.2 fL (35.1-46.3)
[2024-12-31 05:13] LABS: BAND PERCENT MAN 28 % (0-8); BASOPHILS ABSOLUTE MAN 0.00 K/mm3 (0.00-0.23); BASOPHILS PERCENT MAN 0 % (0-2); EOSINOPHILS ABSOLUTE MAN 0.00 K/mm3 (0.00-0.68); EOSINOPHILS PERCENT MAN 0 % (0-6); LYMPHOCYTES ABSOLUTE MAN 0.08 K/mm3 (0.84-5.20); LYMPHOCYTES PERCENT MAN 1 % (21-46); MONOCYTES ABSOLUTE MAN 0.26 K/mm3 (0.16-1.47); MONOCYTES PERCENT MAN 3 % (4-13); NEUTROPHILS ABSOLUTE MAN 8.63 K/mm3 (1.96-9.15); SEG NEUTROPHILS PERCENT MAN 68 % (41-73)
[2024-12-31 05:20] LABS: Alanine Aminotransfer (ALT/SGP 18.0 U/L (12-78); Albumin, Blood 2.3 g/dL (3.4-5.0); Albumin/Globulin Ratio 0.6 (0.8-1.8); Anion Gap 7.0 mmol/L (3-11); Aspartate Aminotrans (AST/SGOT 20.0 U/L (12-37); Bilirubin, Total 0.6 mg/dL (0.1-1.0); Blood Urea Nitrogen 24.0 mg/dL (8-24); CO2, Blood 26.0 mmol/L (21-32); Calcium, Blood 8.7 mg/dL (8.5-10.1); Chloride, Blood 106.0 mmol/L (98-108); Creatinine, Blood 0.99 mg/dL (0.60-1.20); Globulin, Blood 3.9 g/dL (2.2-4.0); Glucose, Blood 155.0 mg/dL (70-99); Potassium, Blood 4.6 mmol/L (3.5-5.5); Sodium, Blood 134.0 mmol/L (136-145); Total Protein, Blood 6.2 g/dL (6.4-8.2)
--- NOTE | 2024-12-31 05:52 | NUR ---
SHIFT SUMMARY: NO ACUTE CHANGES OVERNIGHT. PT REMAINS DROWSY, AROUSABLE TO VERBAL STIMULI AND SOFT TOUCH. SLEPT MOST OF THE NIGHT. ORIENTED X3, ONLY NEEDS HELP ORIENTING TO TIME. PT COOPERATIVE W/CARE, FOLLOWS COMMANDS, AND COMMUNICATES NEEDS APPROPRIATELY. PT CONTINUES TO BE ON 4L OF 02 VIA NC TO MAINTAIN SATS >90%.SBP STABLE W/ MAPS >65. HR, 70S-80S, AFIB.DENIES CHEST PAIN OR SOB. ABD DISTENDED, DENIES NAUSEA OR PAIN. CONTINUES TO USE URINAL APPROPRIATELY. PIV ACCESS IN RFA. INFUSING NS TKO AT 10ML/HR.THIS RN TO REPORT TO ONCOMING RN.
[2024-12-31 13:50] LABS: Prothrombin Time Results 12.6 Sec (9.7-11.5)
[2024-12-31 13:52] LABS: Vancomycin, Trough 25.5 ug/mL (5.0-10.0)
[2024-12-31] MEDS ORDERED: Albumin (Human) 25gm/100ml 100 ML IV ONE (15:10)
[2024-12-31 15:53] LABS: Albumin, Body Fluid 1.1 g/dL
[2024-12-31 15:55] LABS: Automated BF WBC Count 0.216 K/mm3 (0-999)
[2024-12-31 16:00] LABS: Lactate Dehydrogenase, Body Fl 44 U/L
[2024-12-31 17:23] LABS: Color, Body Fluid Yellow (None-Yellow); RBC Count, Body Fluid 87 /mm3 (0-0)
--- NOTE | 2024-12-31 17:25 | NUR ---
SHIFT SUMMARY PT FROM ICU THIS AM, ALERT, ORIENTED X3. DROWSY AND APPEARS TO BE SLEEPING FOR MAJORITY OF SHIFT. PT DENIES PAIN, CHEST PAIN/PRESSURE, SOB, NAUSEA, DIZZINESS AND NUMB/TINGLING. TELE AFIB/FLUTTER 70-80'S, BP STABLE. SPO2 >90% ON 4L O2 VIA NC, TITRATED DOWN TO 2L O2 VIA NC AFTER PARACENTESIS. ABD THIS AM SEVER DISTENDED, FIRM, TENDER, +BT; AFTER PARACENTESIS THIS AFTERNOON MOD DISTENDED, SOFT, +BT. RECEIVED ALBUMIN AFTER 5.7L OFF IN PARACENTESIS. OTHER VSS. CALL LIGHT WITHIN REACH.
[2024-12-31 17:45] LABS: Lymphocytes, Fluid 48.0 % (0.0-18.0); Monocytes/Mononuclear, Fluid 5.0 % (0.0-50.0); Neutrophils, Fluid 26.0 % (0.0-25.0); Total Cell Count, Body Fluid 100
[2025-01-01 04:11] VITALS: BP 134/73
[2025-01-01 04:15] LABS: Vancomycin, Random 20.1 ug/mL
--- NOTE | 2025-01-01 04:39 | NUR ---
SHIFT SUMMARY: PATIENT IS A&OX3-4, DISORIENTED TO TIME BUT IS EASILY REORIENTED. HE IS [place] WELL. VITALS ARE STABLE AND IS CURRENTLY ON 4L NC OF OXYGEN WITH >90% OXYGEN SATS. TELE SHOWS AFIB/AFLUTTER AND HR IN THE 80'S BPM. DENIES PAIN THROUGHOUT SHIFT. PATIENT IS VOIDING VIA WICKING SYSTEM - HAD X1 INCONTINENT VOID. 2P ASSIST TO CHANGE LINENS AND ATTENDS/WICKING SYSTEM. Q6H CBG CHECKS PER MD ORDERS. PATIENT INDEP. REPOSITIONS IN BED. PATIENT CALLS APPROPRIATELY WITH CALL LIGHT IN REACH.
[2025-01-01 07:16] LABS: Alanine Aminotransfer (ALT/SGP 19.0 U/L (12-78); Albumin, Blood 2.6 g/dL (3.4-5.0); Albumin/Globulin Ratio 0.7 (0.8-1.8); Anion Gap 9.0 mmol/L (3-11); Aspartate Aminotrans (AST/SGOT 17.0 U/L (12-37); Bilirubin, Total 0.5 mg/dL (0.1-1.0); Blood Urea Nitrogen 25.0 mg/dL (8-24); CO2, Blood 25.0 mmol/L (21-32); Calcium, Blood 8.7 mg/dL (8.5-10.1); Chloride, Blood 106.0 mmol/L (98-108); Creatinine, Blood 0.89 mg/dL (0.60-1.20); Globulin, Blood 3.9 g/dL (2.2-4.0); Glucose, Blood 125.0 mg/dL (70-99); Potassium, Blood 4.6 mmol/L (3.5-5.5); Sodium, Blood 135.0 mmol/L (136-145); Total Protein, Blood 6.5 g/dL (6.4-8.2)
[2025-01-01 07:47] VITALS: BP 174/93
[2025-01-01 12:19] VITALS: BP 146/78
--- NOTE | 2025-01-01 12:55 | NUR ---
UPDATE PT RESTING IN BED, ABLE TO TURN HIMSELF TO SIDE FOR COMFORT. PT WITH 4L NC APPLIED PT DESATS WHEN SLEEPING.
[2025-01-01 17:01] VITALS: BP 145/87
--- NOTE | 2025-01-01 18:20 | NUR ---
SHIFT SUMMARY PT A/OX3-4, COOPERATIVE OF CARE. PT ABLE TO EXPRESS NEEDS AND USED CALL LIGHT APPROPIATELY. PT BP ELEVATEDTHIS MORNING, BP STABLE AFTER RCIEVING AM DOSES OF BP MEDS. OTHE VSS THROUGOUT SHIFT. NO REPORT OF CHEST PAIN/PRESSURE THROUGHOUT SHIFT. NO REPORT OF SOB/DYSPNEA THROUGHOUT SHIFT. PT SATS DROPTO 80'S SHAWN PT IS SLEEPING, 4L NC APPLIED. OTHERWISE PT A WHEN AWAKE. PT WORK WITH THERAPY, SEE THERAPIST NOTES. PUREWICK REMAINED IN PLACE AND CONNECTED TO SUCTION, MARK URINE. PT ENCOURAGED TO SIT AT EDGE OF BED FOR DINNER AND PLANS TO SIT IN RECLINER FOR BREAKFAST IN THE MORNING. PT STILL AWAITING BED FOR [facility].
[2025-01-01 20:23] VITALS: BP 153/91
[2025-01-01] MEDS ORDERED: Nitrofurantoin/Nitrofuran Mac 100 MG Cap PO SCH (21:00)
[2025-01-02 00:15] VITALS: BP 163/91
[2025-01-02 03:27] VITALS: BP 162/77
[2025-01-02 03:54] LABS: Hematocrit 30.4 % (37.0-53.0); Hemoglobin 9.7 g/dL (13.5-17.5); Mean Corpuscular HGB Conc 31.9 g/dL (31.5-36.5); Mean Corpuscular Volume 85 fL (80-100); NRBC ABSOLUTE 0.00 K/mm3 (0.00-0.02); NRBC Auto 0.0 /100 WBC (0.0-0.2); Platelet Count 91 K/mm3 (150-400); RDW Coefficient Variation 13.9 % (11.7-14.2); RDW Standard Deviation 43.3 fL (35.1-46.3)
[2025-01-02 04:20] LABS: BAND PERCENT MAN 4 % (0-8); BASOPHILS ABSOLUTE MAN 0.00 K/mm3 (0.00-0.23); BASOPHILS PERCENT MAN 0 % (0-2); EOSINOPHILS ABSOLUTE MAN 0.37 K/mm3 (0.00-0.68); EOSINOPHILS PERCENT MAN 9 % (0-6); LYMPHOCYTES ABSOLUTE MAN 0.29 K/mm3 (0.84-5.20); LYMPHOCYTES PERCENT MAN 7 % (21-46); MONOCYTES ABSOLUTE MAN 0.33 K/mm3 (0.16-1.47); MONOCYTES PERCENT MAN 8 % (4-13); NEUTROPHILS ABSOLUTE MAN 3.20 K/mm3 (1.96-9.15); SEG NEUTROPHILS PERCENT MAN 72 % (41-73)
[2025-01-02 04:22] LABS: Alanine Aminotransfer (ALT/SGP 20.0 U/L (12-78); Albumin, Blood 2.5 g/dL (3.4-5.0); Albumin/Globulin Ratio 0.7 (0.8-1.8); Anion Gap 7.0 mmol/L (3-11); Aspartate Aminotrans (AST/SGOT 23.0 U/L (12-37); Bilirubin, Total 0.6 mg/dL (0.1-1.0); Blood Urea Nitrogen 20.0 mg/dL (8-24); CO2, Blood 26.0 mmol/L (21-32); Calcium, Blood 8.6 mg/dL (8.5-10.1); Chloride, Blood 105.0 mmol/L (98-108); Creatinine, Blood 0.8 mg/dL (0.60-1.20); Globulin, Blood 3.6 g/dL (2.2-4.0); Glucose, Blood 143.0 mg/dL (70-99); Potassium, Blood 4.5 mmol/L (3.5-5.5); Sodium, Blood 133.0 mmol/L (136-145); Total Protein, Blood 6.1 g/dL (6.4-8.2)
--- NOTE | 2025-01-02 04:42 | NUR ---
SHIFT SUMMARY: PATIENT IS COUNCIL BUT IS A&OX3-4, DISORIENTED TO TIME BUT IS EASILY REORIENTED. BP ELEVATED, MD AWARE WITH NO NEW ORDERS AT THIS TIME. TELE SHOWS AFIB WITH HR IN THE 80'S BPM. PARACENTESIS WAS COMPLETED ON 12/31 WITH 5.7L OUT. PATIENT REPORTED 10/10 PAIN FROM HIS ABD EARLIER IN THE SHIFT, BUT WAS MANAGED WITH PRN MEDS PER AUG. Q6H CBG CHECKS PER MD ORDERS. PATIENT IS VOIDING VIA WICKING SYSTEM AND ATTENDS IN PLACE. PATIENT REPORTS PASSING GAS BUT NO BM DURING THIS SHIFT. [facility] CALLED SAYING PATIENT WAS STILL ON THE WAITING LIST AT THIS TIME. PATIENT CALLS APPROPRIATELY WITH CALL LIGHT IN REACH.
[2025-01-02 09:08] VITALS: BP 157/90
[2025-01-02] MEDS ORDERED: Mag Sulfate 1 GM/D5% 100ML 100 ML IV STA (10:45)
[2025-01-02 11:01] VITALS: BP 144/97
[2025-01-02 14:50] VITALS: BP 145/88
--- NOTE | 2025-01-02 14:52 | NUR ---
TRANSFER NOTE PT ALERT, ORIENTED X3-4; FORGETFUL AT TIMES. PT RESTING IN BED. ASSISTS WITH REPOSITIONING. UP WITH PHYSICAL THERAPY AT SIDE OF BED. PT REPORTS ABD PAIN THIS AM 2/10; INCREASED TO 8-9/10; MEDICATED PER EMAR. ABD MODERATELY DISTENDER, TENDER, +BT T/O. TELE AFIB, BP ELEVATED TRENDING DOWN. REMOVED TELE PATEINT IS MED NO TELE STATUS. SPO2 >90% ON 4L O2 VIA NC, TITRATED DOWN TO 2L O2 VIA NC. EDEMA NOTED TO BLE. PT RECEIVED MAG REPLACEMENT THIS AM. REPORT GIVEN TO RN ASSUMING CARE OF PATIENT. PT TRANSFERED TO 361 AT 1445. I ATTEMPTED TO CALL SPOUSE AND WAS UNABLE TO LEAVE A MESSAGE.
[2025-01-02] MEDS ORDERED: Enoxaparin 60 MG/0.6 ML SYR SC ONE (16:00)
[2025-01-02] MEDS ORDERED: Enoxaparin 40 MG/0.4 ML SYR SC ONE ×2 (16:05→18:15)
--- NOTE | 2025-01-02 16:17 | NUR ---
1445- PT ARRIVED ON MEDICAL FLOOR IN STABLE CONDITION ON 2L O2 VIA NC AFTER GETTING REPORT FROM PUBLIC OPINION SURVEY TAKER, OC.
--- NOTE | 2025-01-02 16:29 | NUR ---
ASSUMED CARE. PATIENT IN BED A/0X3-4. SMALL BLACK SPOT TO L BOTTOM HEEL. SEVERAL SMALL ROUND BROWN INTACT AREAS TO L LOWER CHAUDHRY.
[2025-01-02] MEDS ORDERED: Insulin Regular 100 UNIT/ML 10ML Vial SC SCH (16:30)
[2025-01-02 19:59] VITALS: BP 156/90
[2025-01-03 04:17] VITALS: BP 161/99
[2025-01-03 05:00] LABS: BASOPHILS ABSOLUTE AUTO 0.02 K/mm3 (0.00-0.23); BASOPHILS PERCENT AUTO 1 % (0-2); EOSINOPHILS ABSOLUTE AUTO 0.23 K/mm3 (0.00-0.68); EOSINOPHILS PERCENT AUTO 6 % (0-6); Hematocrit 32.2 % (37.0-53.0); Hemoglobin 10.3 g/dL (13.5-17.5); IMMATURE GRAN ABSOLUTE AUTO 0.01 K/mm3 (0.00-0.10); IMMATURE GRAN PERCENT AUTO 0 % (0-1); LYMPHOCYTES ABSOLUTE AUTO 0.52 K/mm3 (0.84-5.20); LYMPHOCYTES PERCENT AUTO 14 % (21-46); MONOCYTES ABSOLUTE AUTO 0.31 K/mm3 (0.16-1.47); MONOCYTES PERCENT AUTO 9 % (4-13); Mean Corpuscular HGB Conc 32.0 g/dL (31.5-36.5); Mean Corpuscular Volume 83 fL (80-100); NEUTROPHILS ABSOLUTE AUTO 2.56 K/mm3 (1.96-9.15); NEUTROPHILS PERCENT AUTO 70 % (41-73); NRBC ABSOLUTE 0.00 K/mm3 (0.00-0.02); NRBC Auto 0.0 /100 WBC (0.0-0.2); Platelet Count 94 K/mm3 (150-400); RDW Coefficient Variation 13.7 % (11.7-14.2); RDW Standard Deviation 41.3 fL (35.1-46.3)
[2025-01-03 05:18] LABS: Alanine Aminotransfer (ALT/SGP 22.0 U/L (12-78); Albumin, Blood 2.5 g/dL (3.4-5.0); Albumin/Globulin Ratio 0.7 (0.8-1.8); Anion Gap 8.0 mmol/L (3-11); Aspartate Aminotrans (AST/SGOT 26.0 U/L (12-37); Bilirubin, Total 0.7 mg/dL (0.1-1.0); Blood Urea Nitrogen 18.0 mg/dL (8-24); CO2, Blood 29.0 mmol/L (21-32); Calcium, Blood 8.8 mg/dL (8.5-10.1); Chloride, Blood 101.0 mmol/L (98-108); Creatinine, Blood 0.7 mg/dL (0.60-1.20); Globulin, Blood 3.8 g/dL (2.2-4.0); Glucose, Blood 152.0 mg/dL (70-99); Potassium, Blood 4.2 mmol/L (3.5-5.5); Sodium, Blood 134.0 mmol/L (136-145); Total Protein, Blood 6.3 g/dL (6.4-8.2)
[2025-01-03 09:40] LABS: Prothrombin Time Results 11.9 Sec (9.7-11.5)
[2025-01-03 10:58] VITALS: BP 165/101
[2025-01-03 12:29] LABS: Ferritin, Serum 62.0 ng/mL (26-388); Total Iron Binding Capacity 283.0 ug/dL (250-450)
[2025-01-03] MEDS ORDERED: Sod Ferric Gluc Complx/Sucrose 125 MG in NS 100 ML IV SCH (13:32)
[2025-01-03 16:24] VITALS: BP 157/92
--- NOTE | 2025-01-03 18:31 | NUR ---
SUMMARY- AAOX3-4. PT WEANED TO RA THIS SHIFT. PT COMPLAINED OF MINIMAL ABD PAIN BUT REFUSED PAIN MEDS. PT SLEPT MOST OF THE SHIFT. NO ACUTE EVENTS THIS SHIFT. MINIMAL APPETITE. X1-2 ASSIST TO BSC.
[2025-01-03 19:07] VITALS: BP 145/95
[2025-01-04 04:42] VITALS: BP 158/86
[2025-01-04 05:52] LABS: BASOPHILS ABSOLUTE AUTO 0.01 K/mm3 (0.00-0.23); BASOPHILS PERCENT AUTO 0 % (0-2); EOSINOPHILS ABSOLUTE AUTO 0.22 K/mm3 (0.00-0.68); EOSINOPHILS PERCENT AUTO 6 % (0-6); Hematocrit 33.4 % (37.0-53.0); Hemoglobin 10.9 g/dL (13.5-17.5); IMMATURE GRAN ABSOLUTE AUTO 0.01 K/mm3 (0.00-0.10); IMMATURE GRAN PERCENT AUTO 0 % (0-1); LYMPHOCYTES ABSOLUTE AUTO 0.66 K/mm3 (0.84-5.20); LYMPHOCYTES PERCENT AUTO 18 % (21-46); MONOCYTES ABSOLUTE AUTO 0.44 K/mm3 (0.16-1.47); MONOCYTES PERCENT AUTO 12 % (4-13); Mean Corpuscular HGB Conc 32.6 g/dL (31.5-36.5); Mean Corpuscular Volume 81 fL (80-100); NEUTROPHILS ABSOLUTE AUTO 2.39 K/mm3 (1.96-9.15); NEUTROPHILS PERCENT AUTO 64 % (41-73); NRBC ABSOLUTE 0.00 K/mm3 (0.00-0.02); NRBC Auto 0.0 /100 WBC (0.0-0.2); Platelet Count 110 K/mm3 (150-400); RDW Coefficient Variation 13.5 % (11.7-14.2); RDW Standard Deviation 39.9 fL (35.1-46.3)
[2025-01-04 06:19] LABS: Alanine Aminotransfer (ALT/SGP 23.0 U/L (12-78); Albumin, Blood 2.6 g/dL (3.4-5.0); Albumin/Globulin Ratio 0.6 (0.8-1.8); Anion Gap 7.0 mmol/L (3-11); Aspartate Aminotrans (AST/SGOT 24.0 U/L (12-37); Bilirubin, Total 0.7 mg/dL (0.1-1.0); Blood Urea Nitrogen 17.0 mg/dL (8-24); CO2, Blood 29.0 mmol/L (21-32); Calcium, Blood 9.2 mg/dL (8.5-10.1); Chloride, Blood 101.0 mmol/L (98-108); Creatinine, Blood 0.77 mg/dL (0.60-1.20); Globulin, Blood 4.1 g/dL (2.2-4.0); Glucose, Blood 157.0 mg/dL (70-99); Potassium, Blood 4.0 mmol/L (3.5-5.5); Sodium, Blood 133.0 mmol/L (136-145); Total Protein, Blood 6.7 g/dL (6.4-8.2)
--- NOTE | 2025-01-04 06:41 | NUR ---
SHIFT SUMMARY; PATIENT SLEPT IN LONG INTERVALS, MEDICATED FOR ABD PAIN.DID NOT NEED INSULIN AT HS. DID NOT HEAR FROM [facility] TONIGHT. 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
[2025-01-04 08:09] VITALS: BP 166/84
--- NOTE | 2025-01-04 11:59 | NUR ---
1150- THIS RN REPORT TO MD HODGE A CHANGE IN PT'S CONDITION. PT HAS HAD YELLOW CLEAR URINE AND NOW PT'S URINE CHANGED TO CODI RED BLOODY URINE. PT DENIES ANY OTHER CHANGES. PT IS ON A MALE PURE WICK. MD AND TEAM AWARE. NO NEW ORDERS AT THIS TIME.
[2025-01-04 13:00] LABS: Hematocrit 35.6 % (37.0-53.0); Hemoglobin 11.6 g/dL (13.5-17.5)
[2025-01-04 16:05] VITALS: BP 135/85
[2025-01-04 16:36] LABS: HEPATITIS C AB CIA INTERP Negative (Negative); HEPATITIS C ANTIBODY CIA INDEX 0.03 IV
[2025-01-04 16:50] LABS: HBV CORE ANTIBODIES,TOTAL Negative (Negative)
[2025-01-04 16:56] LABS: HEPATITIS B SURFACE ANTIBODY 159.75 IU/L; HEPATITIS BE ANTIBODY Negative (Negative); HEPATITIS BE ANTIGEN Negative (Negative)
--- NOTE | 2025-01-04 19:48 | NUR ---
SUMMARY- AAOX3-4. DISORIENTED TO EXACT SITUATION. PT ON RA. PT DONNED PROSTHESIS THIS EVENING AND THIS RN TRANSFERRED PT TO RECLINER-PT WAS A X1 MINI ASSIST. ABD PAIN WELL CONTROLLED WITH EMAR PAIN MEDS. PT DID HAVE ONE CLOT IN BRIEF PRIOR TO PLACING [address] LUJAN. NO CLOTS POST PLACING [address] LUJAN[address] BLADDER IRRIGATION INITIATED AT 1900. NO CLOTS THIS SHIFT WHEN PT HAD MALE PURE WICK ON.
[2025-01-04 20:00] LABS: Source, Urine Foley catheter
[2025-01-04 20:04] LABS: Bilirubin, Urine Neg (Neg); Color, Urine Red (P-Yellow); Glucose Qualitative, Urine Neg (Neg); Ketones, Urine 1+ (Neg); Leukocyte Esterase, Urine 2+ (Neg); Protein, Urine 3+ (Neg); Specific Gravity, Urine 1.015 (1.003-1.022); Urobilinogen, Urine NORM (Normal)
[2025-01-04 20:13] LABS: Red Blood Cells, Urine TNTC /hpf (0-2)
[2025-01-04 21:22] VITALS: BP 151/96
[2025-01-05 05:04] LABS: BASOPHILS ABSOLUTE AUTO 0.03 K/mm3 (0.00-0.23); BASOPHILS PERCENT AUTO 1 % (0-2); EOSINOPHILS ABSOLUTE AUTO 0.28 K/mm3 (0.00-0.68); EOSINOPHILS PERCENT AUTO 7 % (0-6); Hematocrit 32.2 % (37.0-53.0); Hemoglobin 10.5 g/dL (13.5-17.5); IMMATURE GRAN ABSOLUTE AUTO 0.01 K/mm3 (0.00-0.10); IMMATURE GRAN PERCENT AUTO 0 % (0-1); LYMPHOCYTES ABSOLUTE AUTO 0.89 K/mm3 (0.84-5.20); LYMPHOCYTES PERCENT AUTO 23 % (21-46); MONOCYTES ABSOLUTE AUTO 0.45 K/mm3 (0.16-1.47); MONOCYTES PERCENT AUTO 12 % (4-13); Mean Corpuscular HGB Conc 32.6 g/dL (31.5-36.5); Mean Corpuscular Volume 82 fL (80-100); NEUTROPHILS ABSOLUTE AUTO 2.17 K/mm3 (1.96-9.15); NEUTROPHILS PERCENT AUTO 57 % (41-73); NRBC ABSOLUTE 0.00 K/mm3 (0.00-0.02); NRBC Auto 0.0 /100 WBC (0.0-0.2); Platelet Count 115 K/mm3 (150-400); RDW Coefficient Variation 13.7 % (11.7-14.2); RDW Standard Deviation 41.1 fL (35.1-46.3)
[2025-01-05 05:16] VITALS: BP 135/83
[2025-01-05 05:33] LABS: Alanine Aminotransfer (ALT/SGP 27.0 U/L (12-78); Albumin, Blood 2.6 g/dL (3.4-5.0); Albumin/Globulin Ratio 0.6 (0.8-1.8); Anion Gap 9.0 mmol/L (3-11); Aspartate Aminotrans (AST/SGOT 36.0 U/L (12-37); Bilirubin, Total 0.4 mg/dL (0.1-1.0); Blood Urea Nitrogen 21.0 mg/dL (8-24); CO2, Blood 28.0 mmol/L (21-32); Calcium, Blood 9.0 mg/dL (8.5-10.1); Chloride, Blood 101.0 mmol/L (98-108); Creatinine, Blood 0.82 mg/dL (0.60-1.20); Globulin, Blood 4.0 g/dL (2.2-4.0); Glucose, Blood 152.0 mg/dL (70-99); Potassium, Blood 3.8 mmol/L (3.5-5.5); Sodium, Blood 134.0 mmol/L (136-145); Total Protein, Blood 6.6 g/dL (6.4-8.2)
--- NOTE | 2025-01-05 06:10 | NUR ---
SHIFT SUMMARY PATIENT IS ALERT AND ORIENTED. PATIENT HAS HAD NO ACUTE EVENTS THIS SHIFT. VITAL SIGNS REVIEWED. PATIENT IS A 1X ASSIST. PATIENT CAN IND USE PROSTHESIS IND. PAITNENT HAS BEEN MEDICATED FOR PAIN PER EMAR. PATIENT HAS HAD NO COMPLAINTS OF SOB, NAUSEA, VOMTTING THIS SHIFT. PATIENT HAS A LUJAN AND IS HAVING CBI DONE. MINIMAL CLOTS DURING BLADDER IRRIGATION. BED IN LOCKED AND LOWEST POSITION. CALL LIGHT IN PLACE.
[2025-01-05 08:13] VITALS: BP 123/74
[2025-01-05] MEDS ORDERED: FURO40 PO (13:17)
[2025-01-05] MEDS ORDERED: SPIR50 PO (13:18)
[2025-01-05 15:31] VITALS: BP 136/83
--- NOTE | 2025-01-05 16:35 | NUR ---
Pt. is sitting on the side of his bed when he welcomes my visit. Pt. displays evidence that he will being discharged soon, and verbalizes that he hopes the discharge will be to his brother's home. :iosten with empathy and a calming presence. Prayed with Pt. Pt. verbalized gratitude for the spiritual care visit.
--- NOTE | 2025-01-05 16:39 | NUR ---
MET WITH PATIENT. DISCUSSED POLST ON FILE, WITH NO PROVIDER SIGNITURE. PATIENT EXPRESSED THAT THESE ARE STILL HIS WISHES. NEW POLST FILLED OUT AND SIGNED BY PROVIDER. SENT TO MEDICAL RECORDS. AND POLST REGISTRY
--- NOTE | 2025-01-05 17:32 | NUR ---
PATIENT UP FOR MEALS TODAY AND ABLE TO USE FWW WITH STAND BY ASSIST FOR COMMODE. PATIENT COOPERATIVE WITH CARE AND ALL QUESTIONS ANSWERED. LUJAN REMOVED AND PATIENT ABLE TO VOID. DC IN THE AM TO SKILLED FACILITY [facility]
[2025-01-05] MEDS ORDERED: Docusate Sodium/Senna 1 Tab PO PRN (19:20)
[2025-01-05 20:37] VITALS: BP 130/77
[2025-01-05] MEDS ORDERED: HYDROcodone 5-APAP 325 TAB PO PRN (21:35)
--- NOTE | 2025-01-05 21:35 | NUR ---
NEW TP- ORDER RECEIVED FROM THE ON-CALL HOSPITALIST NP. CARROLL: NORCO 5/325MG PO Q4 PRN. ENTERED TO [employer], SEE EMAR.
--- NOTE | 2025-01-06 03:27 | NUR ---
SHIFT SUMMARY PT VOIDING WELL, RED COLOR URINE TO URINAL BY THE BEDSIDE. NO CLOTS NOTED. NEW ORDER FOR NORCO 5/325MG Q4 RECEIVED FROM THE ON-CALL HOSPITALIST. PT REPORTS UMBILICCAL HERNIA X2 PAIN LEVEL 12/17. PAIN MED EFFECTIVE. HS BG 168. DRESSING FOR UMBILICAL HERNIAS C/D/I. PLAN IS TO D/C TO THE [facility]ICAL C[facility] TODAY. NO ACUTE EVENTS DURING THIS SHIFT. BED AT THE LOWEST POSITION, CALL LIGHT W/I REACH. PT IS A/O X4, VIEJAS, ABLE TO MAKE HIS NEEDS KNOWN AND COOPERATIVE WITH CARE.
[2025-01-06 04:34] VITALS: BP 121/76
[2025-01-06 04:54] LABS: BASOPHILS ABSOLUTE AUTO 0.03 K/mm3 (0.00-0.23); BASOPHILS PERCENT AUTO 1 % (0-2); EOSINOPHILS ABSOLUTE AUTO 0.34 K/mm3 (0.00-0.68); EOSINOPHILS PERCENT AUTO 10 % (0-6); Hematocrit 31.9 % (37.0-53.0); Hemoglobin 10.3 g/dL (13.5-17.5); IMMATURE GRAN ABSOLUTE AUTO 0.02 K/mm3 (0.00-0.10); IMMATURE GRAN PERCENT AUTO 1 % (0-1); LYMPHOCYTES ABSOLUTE AUTO 0.81 K/mm3 (0.84-5.20); LYMPHOCYTES PERCENT AUTO 24 % (21-46); MONOCYTES ABSOLUTE AUTO 0.39 K/mm3 (0.16-1.47); MONOCYTES PERCENT AUTO 12 % (4-13); Mean Corpuscular HGB Conc 32.3 g/dL (31.5-36.5); Mean Corpuscular Volume 82 fL (80-100); NEUTROPHILS ABSOLUTE AUTO 1.79 K/mm3 (1.96-9.15); NEUTROPHILS PERCENT AUTO 53 % (41-73); NRBC ABSOLUTE 0.00 K/mm3 (0.00-0.02); NRBC Auto 0.0 /100 WBC (0.0-0.2); Platelet Count 107 K/mm3 (150-400); RDW Coefficient Variation 13.9 % (11.7-14.2); RDW Standard Deviation 41.1 fL (35.1-46.3)
[2025-01-06 05:12] LABS: Alanine Aminotransfer (ALT/SGP 27.0 U/L (12-78); Albumin, Blood 2.7 g/dL (3.4-5.0); Albumin/Globulin Ratio 0.7 (0.8-1.8); Anion Gap 7.0 mmol/L (3-11); Aspartate Aminotrans (AST/SGOT 27.0 U/L (12-37); Bilirubin, Total 0.5 mg/dL (0.1-1.0); Blood Urea Nitrogen 24.0 mg/dL (8-24); CO2, Blood 28.0 mmol/L (21-32); Calcium, Blood 9.4 mg/dL (8.5-10.1); Chloride, Blood 103.0 mmol/L (98-108); Creatinine, Blood 0.93 mg/dL (0.60-1.20); Globulin, Blood 4.0 g/dL (2.2-4.0); Glucose, Blood 150.0 mg/dL (70-99); Potassium, Blood 3.9 mmol/L (3.5-5.5); Sodium, Blood 134.0 mmol/L (136-145); Total Protein, Blood 6.7 g/dL (6.4-8.2)
[2025-01-06 07:58] VITALS: BP 132/79
[2025-01-06] MEDS ORDERED: DOCUZEN 8.6-501 EACH PO (10:46)
--- NOTE | 2025-01-06 11:52 | NUR ---
TRANSFER OF CARE REPORT GIVEN TO [facility] STAFF MEMBER MICHELLE. ALL QUESTIONS ANSWERED. NO CONCERNS. WAITING FOR TRANSPORT TO ARRIVE.
== END 2025-01-06 12:15 | DRG 871 ==
LOC: ER 14:43 → ICUE 14:44 → MEDS 12-30 08:05 → ICUE 12-30 08:05 → PCU 12-30 08:05 → ICUE 12-30 11:11 → PCU 12-31 10:54 → MEDS 01-02 14:47
PROVIDERS: Emergency Medicine; Family Medicine; Internal Medicine; Student in an Organized Health Care Education/Training Program; ADMIT Internal Medicine
PROC: 3E03329 Introduction of Other Anti-infective into Peripheral Vein, Percutaneous Approach (ICD-10-PCS; principal; 2024-12-29)
PROC: 5A09357 Assistance with Respiratory Ventilation, Less than 24 Consecutive Hours, Continuous Positive Airway Pressure (ICD-10-PCS; 2024-12-29)
PROC: 30233J1 Transfusion of Nonautologous Serum Albumin into Peripheral Vein, Percutaneous Approach (ICD-10-PCS; 2024-12-31)
PROC: 0W9G3ZZ Drainage of Peritoneal Cavity, Percutaneous Approach (ICD-10-PCS; 2024-12-31)
PROC: 0T9B70Z Drainage of Bladder with Drainage Device, Via Natural or Artificial Opening (ICD-10-PCS; 2025-01-04)
DX: A41.9 Sepsis, unspecified organism (principal); I81 Portal vein thrombosis; J96.01 Acute respiratory failure with hypoxia; K55.059 Acute (reversible) ischemia of intestine, part and extent unspecified; K42.0 Umbilical hernia with obstruction, without gangrene; R18.8 Other ascites; I48.20 Chronic atrial fibrillation, unspecified; I82.502 Chronic embolism and thrombosis of unspecified deep veins of left lower extremity; N39.0 Urinary tract infection, site not specified; I50.32 Chronic diastolic (congestive) heart failure; I67.89 Other cerebrovascular disease; Z66 Do not resuscitate; K75.81 Nonalcoholic steatohepatitis (NASH); K74.69 Other cirrhosis of liver; D69.59 Other secondary thrombocytopenia; D46.9 Myelodysplastic syndrome, unspecified; E83.42 Hypomagnesemia; D50.9 Iron deficiency anemia, unspecified; E11.9 Type 2 diabetes mellitus without complications; I25.10 Atherosclerotic heart disease of native coronary artery without angina pectoris; R31.0 Gross hematuria; B95.2 Enterococcus as the cause of diseases classified elsewhere; J44.9 Chronic obstructive pulmonary disease, unspecified; G47.33 Obstructive sleep apnea (adult) (pediatric); G89.4 Chronic pain syndrome; K21.9 Gastro-esophageal reflux disease without esophagitis; I11.0 Hypertensive heart disease with heart failure; N40.0 Benign prostatic hyperplasia without lower urinary tract symptoms; F17.200 Nicotine dependence, unspecified, uncomplicated; I25.2 Old myocardial infarction; Z86.14 Personal history of Methicillin resistant Staphylococcus aureus infection; Z88.8 Allergy status to other drugs, medicaments and biological substances; Z88.0 Allergy status to penicillin; Z79.4 Long term (current) use of insulin; Z79.01 Long term (current) use of anticoagulants; Z79.2 Long term (current) use of antibiotics; Z86.73 Personal history of transient ischemic attack (TIA), and cerebral infarction without residual deficits; Z89.511 Acquired absence of right leg below knee
CPT/HCPCS: 36415; 49083; 51701; 71045; 74177; 76705; 80048; 80053; 80202; 81001; 82042; 82140; 82728; 82803; 82947; 83540; 83550; 83605; 83615; 83690; 83735; 83880; 84100; 84157; 84443; 85014; 85018; 85025; 85610; 85730; 86140; 86704; 86707; 86803; 87040; 87070; 87077; 87086; 87186; 87205; 87340; 87350; 88108; 88305; 89051; 93005; 93010; 93306; 94640; 94660; 94664; 94760; 94762; 96365-59; 96375; 96376; 97110; 97116; 97162; 97530; 99285-25; A9270; G0378; J0692; J1171; J1650; J1815; J1938; J2185; J2405; J2470; J2916; J2919; J3010; J3373; J3475; J7040; J7050; J7060; P9047; Q9967

== ENCOUNTER 2025-01-27 17:30 | Inpatient (IN) | payer MEDICARE ==
[~2025-01-27] VITALS: Ht 182.9 cm; Wt 95.0 kg
[~2025-01-27 17:30] MED LIST changes: +DOCUZEN 8.6-501 EACH PO; +FEROSUL325 M1 PO; +FURO40 PO
[2025-01-27] MEDS ORDERED: FentaNYL Citrate 50 MCG/ML 2 ML Injection IV PRN (22:10)
[2025-01-27] MEDS ORDERED: DiphenhydrAMINE HCl 50 MG/ML 1ML Vial IV ONE (23:05)
[2025-01-27 23:31] LABS: BASOPHILS ABSOLUTE AUTO 0.02 K/mm3 (0.00-0.23); BASOPHILS PERCENT AUTO 0 % (0-2); EOSINOPHILS ABSOLUTE AUTO 0.05 K/mm3 (0.00-0.68); EOSINOPHILS PERCENT AUTO 1 % (0-6); Hematocrit 22.5 % (37.0-53.0); Hemoglobin 7.1 g/dL (13.5-17.5); IMMATURE GRAN ABSOLUTE AUTO 0.01 K/mm3 (0.00-0.10); IMMATURE GRAN PERCENT AUTO 0 % (0-1); LYMPHOCYTES ABSOLUTE AUTO 1.10 K/mm3 (0.84-5.20); LYMPHOCYTES PERCENT AUTO 16 % (21-46); MONOCYTES ABSOLUTE AUTO 0.42 K/mm3 (0.16-1.47); MONOCYTES PERCENT AUTO 6 % (4-13); Mean Corpuscular HGB Conc 31.6 g/dL (31.5-36.5); Mean Corpuscular Volume 90 fL (80-100); NEUTROPHILS ABSOLUTE AUTO 5.49 K/mm3 (1.96-9.15); NEUTROPHILS PERCENT AUTO 78 % (41-73); NRBC ABSOLUTE 0.00 K/mm3 (0.00-0.02); NRBC Auto 0.0 /100 WBC (0.0-0.2); Platelet Count 137 K/mm3 (150-400); RDW Coefficient Variation 18.4 % (11.7-14.2); RDW Standard Deviation 58.9 fL (35.1-46.3)
[2025-01-27 23:58] LABS: Alanine Aminotransfer (ALT/SGP 24.0 U/L (12-78); Albumin, Blood 3.0 g/dL (3.4-5.0); Albumin/Globulin Ratio 0.7 (0.8-1.8); Anion Gap 10.0 mmol/L (3-11); Aspartate Aminotrans (AST/SGOT 24.0 U/L (12-37); Bilirubin, Total 0.3 mg/dL (0.1-1.0); Blood Urea Nitrogen 126.0 mg/dL (8-24); CO2, Blood 22.0 mmol/L (21-32); Calcium, Blood 9.4 mg/dL (8.5-10.1); Chloride, Blood 112.0 mmol/L (98-108); Creatinine, Blood 2.44 mg/dL (0.60-1.20); Globulin, Blood 4.5 g/dL (2.2-4.0); Glucose, Blood 146.0 mg/dL (70-99); Potassium, Blood 6.4 mmol/L (3.5-5.5); Sodium, Blood 138.0 mmol/L (136-145); Total Protein, Blood 7.5 g/dL (6.4-8.2)
[2025-01-28] VITALS (25 sets, daily range): BP systolic 79–136; BP diastolic 49–84
[2025-01-28 00:30] LABS: Magnesium, Blood 2.3 mg/dL (1.6-2.4); Phosphorus, Blood 2.6 mg/dL (2.5-4.9)
[2025-01-28 00:34] LABS: Prothrombin Time Results 12.3 Sec (9.7-11.5)
[2025-01-28] MEDS ORDERED: NS 1,000 ML IV SCH ×3 (00:40→23:55)
[2025-01-28] MEDS ORDERED: Insulin Regular 100 Unit/ML 1ML Dose IV ONE ×2 (00:55→23:55)
[2025-01-28 02:05] LABS: Ferritin, Serum 242.0 ng/mL (26-388); Total Iron Binding Capacity 443.0 ug/dL (250-450)
[2025-01-28 02:17] LABS: Hematocrit 19.5 % (37.0-53.0); Hemoglobin 6.1 g/dL (13.5-17.5)
[2025-01-28] MEDS ORDERED: NS 1,000 ML IV ONE ×2 (02:24→03:00)
[2025-01-28] MEDS ORDERED: Docusate Sodium/Senna 1 Tab PO PRN (03:40)
[2025-01-28] MEDS ORDERED: Albuterol HFA200 ACT/6.7 GM INH INH SCH (04:00)
[2025-01-28] MEDS ORDERED: Albuterol HFA200 ACT/6.7 GM INH INH PRN (04:25)
[2025-01-28 04:56] LABS: Source, Urine Clean Catch
[2025-01-28 05:03] LABS: Bilirubin, Urine Neg (Neg); Color, Urine Yellow (P-Yellow); Glucose Qualitative, Urine Neg (Neg); Ketones, Urine Neg (Neg); Leukocyte Esterase, Urine 1+ (Neg); Protein, Urine 2+ (Neg); Specific Gravity, Urine 1.010 (1.003-1.022); Urobilinogen, Urine NORM (Normal)
[2025-01-28 05:25] LABS: U Amphetamine Screen Not Detected; U Barbituate Screen Not Detected; U Benzodiazapine Screen Not Detected; U Buprenorphine Screen DETECTED; U Cannabinoids Screen Not Detected; U Cocaine Screen Not Detected; U Methadone Screen Not Detected; U Methamphetamine Screen Not Detected; U Opiates Screen Not Detected; U Oxycodone Screen Not Detected; U Phencyclidine Screen Not Detected
[2025-01-28 05:35] LABS: Red Blood Cells, Urine 50-100 /hpf (0-2)
[2025-01-28] MEDS ORDERED: NS 500 ML IV SCH (05:35)
[2025-01-28] MEDS ORDERED: Insulin Human Lispro 100 Units/ML 3ML Syringe SC SCH ×2 (07:30)
[2025-01-28 08:20] LABS: BASOPHILS ABSOLUTE AUTO 0.02 K/mm3 (0.00-0.23); BASOPHILS PERCENT AUTO 0 % (0-2); EOSINOPHILS ABSOLUTE AUTO 0.01 K/mm3 (0.00-0.68); EOSINOPHILS PERCENT AUTO 0 % (0-6); Hematocrit 23.8 % (37.0-53.0); Hemoglobin 7.5 g/dL (13.5-17.5); IMMATURE GRAN ABSOLUTE AUTO 0.04 K/mm3 (0.00-0.10); IMMATURE GRAN PERCENT AUTO 0 % (0-1); LYMPHOCYTES ABSOLUTE AUTO 0.51 K/mm3 (0.84-5.20); LYMPHOCYTES PERCENT AUTO 5 % (21-46); MONOCYTES ABSOLUTE AUTO 0.35 K/mm3 (0.16-1.47); MONOCYTES PERCENT AUTO 3 % (4-13); Mean Corpuscular HGB Conc 31.5 g/dL (31.5-36.5); Mean Corpuscular Volume 91 fL (80-100); NEUTROPHILS ABSOLUTE AUTO 9.61 K/mm3 (1.96-9.15); NEUTROPHILS PERCENT AUTO 91 % (41-73); NRBC ABSOLUTE 0.00 K/mm3 (0.00-0.02); NRBC Auto 0.0 /100 WBC (0.0-0.2); Platelet Count 123 K/mm3 (150-400); RDW Coefficient Variation 17.7 % (11.7-14.2); RDW Standard Deviation 57.7 fL (35.1-46.3)
[2025-01-28 08:43] LABS: Alanine Aminotransfer (ALT/SGP 19.0 U/L (12-78); Albumin, Blood 2.8 g/dL (3.4-5.0); Albumin/Globulin Ratio 0.7 (0.8-1.8); Anion Gap 11.0 mmol/L (3-11); Aspartate Aminotrans (AST/SGOT 20.0 U/L (12-37); Bilirubin, Total 0.5 mg/dL (0.1-1.0); Blood Urea Nitrogen 118.0 mg/dL (8-24); CO2, Blood 21.0 mmol/L (21-32); Calcium, Blood 9.0 mg/dL (8.5-10.1); Chloride, Blood 115.0 mmol/L (98-108); Creatinine, Blood 2.03 mg/dL (0.60-1.20); Globulin, Blood 3.8 g/dL (2.2-4.0); Glucose, Blood 179.0 mg/dL (70-99); Potassium, Blood 5.8 mmol/L (3.5-5.5); Sodium, Blood 141.0 mmol/L (136-145); Total Protein, Blood 6.6 g/dL (6.4-8.2)
[2025-01-28] MEDS ORDERED: Enoxaparin 40 MG/0.4 ML SYR SC SCH (09:00)
--- NOTE | 2025-01-28 16:23 | NUR ---
PALLIATIVE CARE CONSULT: REVIEWED MEDICAL RECORD, SPOKE TO PRIMARY RN PRIOR TO VISIT: FOUND POLST ON FILE STATING DNR BUT WAS NOT SIGNED BY MD. FOUND SIGNED POLST WITH POLST REGISTRY DATED 01/07/25 AND WAS SIGNED WITH DNR SELECTIVE TREATMENT CHOICE. CALLED DAUGHTER ANNETTE AT [phone] PER PRIMARY RN DIRECTION DUE TO SPOUSE BETTY AND HAVING HER OWN HEALTH CONCERNS. SPOKE TO DAUGHTER ANNETTE AND SHE IS AGREEABLE TO HONORING RECENT POLST DECISIONS FOR DNR MEASURES. DISCUSSED NEEDING A MEETING TO DISCUSS GOC WITH FAMILY. PER ANNETTE OLYA AND GRANDSON WILL BE VISITING TOMORROW BEFORE NOON. ADVISED WE WILL ATTEMPT A GOC MEETING AT THAT TIME. SHE STATED SHE WOULD LET HER MOM KNOW BEFORE THE MEETING, BUT SHE STATED STRESS CAN MAKE HER MOM "MANIC". SHE STATES SHE IS WORRIED ABOUT HER MOM BECUASE SHE DOESN'T THINK SHE CAN CARE FOR HER DAD ANY LONGER. ADVISED WE WILL DISCUSS CONCERNS DURING GOC MEETING. DR. GRIMES NOTIFIED OF POLST ON FILE AND CONVERSATION WITH DAUGHTER. DR. GRIMES AGREEABLE TO DNR STATUS. ORDER PLACED. PLACED COPY OF POLST ON CHART AND SENT UPDATED POLST TO MEDICAL RECORDS. UPDATED PRIMARY RN.
--- NOTE | 2025-01-28 16:59 | NUR ---
SHIFT SUMMARY NO ACUTE CHANGES THIS SHIFT. PT RESTING QUIETLY THROUGHOUT THE DAY. PT AROUSES TO LOUD VERBAL STIMULI. PT VENETIE IRA. PT ATTEMPTS TO ANSWER MOST QUESTIONS, BUT RESPONSES VARIED AT TIMES. PT WITH INTERMITTENT CONFUSION. VITAL SIGNS HAVE REMAINED STABLE. PT ON ROOM AIR. LR INFUSING AT 75 ML/HR, AND PT RECIEVED 2 UNITS OF PRBC'S THIS SHIFT. PT TAKING PO FLUIDS WITHOUT DIFFICULTY. PT WITH MALE WICKING SYSTEM IN PLACE WITH DARK YELLOW URINE OUTPUT NOTED. PT ABLE TO ASSIST WITH REPOSITIONING AT TIMES. NO FAMILY AT BEDSIDE. WILL CONTINUE TO MONITOR AND REPORT OFF TO ONCOMING RN.
[2025-01-28 17:37] LABS: Hematocrit 27.7 % (37.0-53.0); Hemoglobin 8.7 g/dL (13.5-17.5)
[2025-01-28 18:22] LABS: Anion Gap 10.0 mmol/L (3-11); Blood Urea Nitrogen 107.0 mg/dL (8-24); CO2, Blood 21.0 mmol/L (21-32); Calcium, Blood 9.3 mg/dL (8.5-10.1); Chloride, Blood 118.0 mmol/L (98-108); Creatinine, Blood 1.81 mg/dL (0.60-1.20); Glucose, Blood 147.0 mg/dL (70-99); Potassium, Blood 5.4 mmol/L (3.5-5.5); Sodium, Blood 144.0 mmol/L (136-145)
[2025-01-28] MEDS ORDERED: Insulin Glargine-Yfgn 100 Unit/mL 3 ML SYR SC SCH (21:00)
[2025-01-29] VITALS (8 sets, daily range): BP systolic 98–137; BP diastolic 48–84
[2025-01-29] MEDS ORDERED: Insulin Regular 100 Unit/ML 1ML Dose IV ONE
[2025-01-29 03:18] LABS: BASOPHILS ABSOLUTE AUTO 0.02 K/mm3 (0.00-0.23); BASOPHILS PERCENT AUTO 0 % (0-2); EOSINOPHILS ABSOLUTE AUTO 0.47 K/mm3 (0.00-0.68); EOSINOPHILS PERCENT AUTO 4 % (0-6); Hematocrit 26.8 % (37.0-53.0); Hemoglobin 8.5 g/dL (13.5-17.5); IMMATURE GRAN ABSOLUTE AUTO 0.08 K/mm3 (0.00-0.10); IMMATURE GRAN PERCENT AUTO 1 % (0-1); LYMPHOCYTES ABSOLUTE AUTO 0.52 K/mm3 (0.84-5.20); LYMPHOCYTES PERCENT AUTO 4 % (21-46); MONOCYTES ABSOLUTE AUTO 0.24 K/mm3 (0.16-1.47); MONOCYTES PERCENT AUTO 2 % (4-13); Mean Corpuscular HGB Conc 31.7 g/dL (31.5-36.5); Mean Corpuscular Volume 91 fL (80-100); NEUTROPHILS ABSOLUTE AUTO 12.10 K/mm3 (1.96-9.15); NEUTROPHILS PERCENT AUTO 90 % (41-73); NRBC ABSOLUTE 0.00 K/mm3 (0.00-0.02); NRBC Auto 0.0 /100 WBC (0.0-0.2); Platelet Count 128 K/mm3 (150-400); RDW Coefficient Variation 17.9 % (11.7-14.2); RDW Standard Deviation 58.4 fL (35.1-46.3)
[2025-01-29 03:37] LABS: Alanine Aminotransfer (ALT/SGP 18.0 U/L (12-78); Albumin, Blood 2.7 g/dL (3.4-5.0); Albumin/Globulin Ratio 0.7 (0.8-1.8); Anion Gap 9.0 mmol/L (3-11); Aspartate Aminotrans (AST/SGOT 13.0 U/L (12-37); Bilirubin, Total 0.7 mg/dL (0.1-1.0); Blood Urea Nitrogen 92.0 mg/dL (8-24); CO2, Blood 22.0 mmol/L (21-32); Calcium, Blood 9.0 mg/dL (8.5-10.1); Chloride, Blood 118.0 mmol/L (98-108); Creatinine, Blood 1.63 mg/dL (0.60-1.20); Globulin, Blood 3.8 g/dL (2.2-4.0); Glucose, Blood 138.0 mg/dL (70-99); Magnesium, Blood 2.0 mg/dL (1.6-2.4); Potassium, Blood 5.4 mmol/L (3.5-5.5); Sodium, Blood 144.0 mmol/L (136-145); Total Protein, Blood 6.5 g/dL (6.4-8.2)
--- NOTE | 2025-01-29 06:04 | NUR ---
SHIFT SUMMERY PT HAS BEEN LETHARGIC OVERNIGHT BUT AWAKENS EASILY TO VERBAL STIMULI. HE IS 97% ON 2LNC W/AN OCCASIONAL PRODUCTIVE COUGH. HE IS ORIENTED TO PLACE AND SELF. HE IS ABLE TO FOLLOW COMMANDS AND MAKE NEEDS KNOWN. HE HAS BECOME MORE ALERT AND THE SHIFT HAS PROGRESSED. HE HAS BEEN AFIB ON THE SALES PERSON. BP WNL. HE HAS A PURWICK AND HAS HAD ADEQUATE URINE OUTPUT. HE HAS BEEN AFEBRILE. HE HAS HAD NO ACUTE DISTRESS OVERNIGHT.
[2025-01-29] MEDS ORDERED: Buprenorphine HCL/Naloxone HCL 8MG-2MG Tab SL PRN (07:50)
[2025-01-29] MEDS ORDERED: Polyethylene Glycol 3350 17 gm PO SCH (09:00)
--- NOTE | 2025-01-29 09:25 | NUR ---
Care [place] Pt A&O to self & place. Pt stating "I don't know & I don't care" when asking date. Speech mumbled. BP soft, otherwise VSS. Spo2 > 92% on RA. Monitor showing AFIB, HR 90s-110s. NS gtt infusing per orders. Pt requesting warm water. Sip of water provided. Pt then w/ wet cough. Pt refusing oral meds this morning, stating "that's enough! Get away from me! Leave me alone!" Pt repositioned. Male purewick in place draining dark yellow urine.
--- NOTE | 2025-01-29 12:38 | NUR ---
CASE CONFERENCE: MET WITH PT'S AND GRANDSON WHILE PATIENT WORKED WITH [facility] STATES BOTH THE PATIENT AND ARE IN POOR HEALTH. PT'S OLYA STATES SHE AGREES, AND STATES SHE HAS BEEN HANGING ON FOR "HIM," MEANING HER . GRANDSON REPORTS PT AND LIVE IN [place] , AND IT IS BECOMING TOO HARD FOR THEM TO MANAGE THEIR OWN CARE, MUCH LESS PHYSICALLY ASSISTING EACH OTHER. NURSING HOME MEDICAID INFORMATION, AND ADVANCE DIRECTIVES GIVEN TO FAMILY.
--- NOTE | 2025-01-29 15:15 | NUR ---
Spiritual Care Visit. Pt. is awake in his bed and welcomes my visit. Pt. displays evidence of being groggy, but verbalizes remembering this hvac commercial salesperson from a previous hospital visit. With theraptutic listening and a calming presence, Pt. displays an openness for spiritual care. Prayed with the Pt. Pt. verbalized gratitude by reaching out and shaking this hvac commercial salesperson's hand. Will remain available to P.t and family.
--- NOTE | 2025-01-29 16:30 | NUR ---
Transfer to Medical Pt A&O x3. IGIUGIG. Speech intermittently mumbled. VSS. Spo2 > 92% on RA. Monitor showing AFIB, HR 90s-110s. NS gtt infusing per orders. ST eval this AM. Pt tolerating PO intake. Pt able to sit up at edge of bed w/ therapy this AM. Pt made medical w/ telemetry status. Report given to accepting medical floor RN assuming care of pt. Pt taken to rm 346 by bed w/ belongings @ approx 1615.
--- NOTE | 2025-01-29 17:23 | NUR ---
ASSUMPTION OF CARE NOTE: PATIENT ARRIVES TO ROOM AT 1605 VIA BED FROM ICU RM 14. ASSUMED CARE OF PATIENT. PATIENT TRANSFERRED TO BED c 4 MAX ASSIST USING SLIDER SHEET. SKIN ASSESSMENT c 2 RN'S VERIFIED COMPLETED. MEPILEX DRESSING CHANGED TO BELLY BUTTON, L CHAUDHRY AND COCCYX. PATIENT REPOSITION TO L SIDE AND BLE'S ELEVATED ON PILLOW. PATIENT ON X RAY SERVICE ENGINEER, RA SATTING 95-98%. PATIENT ON TELE AFIB HR IN THE 90'S TO LOW 110'S BPM. PATIENT REPORTS BACK PAIN, MEDICATED PER EMAR. PATIENT ALERT AND ORIENTED, PLEASANT AND COOPERATIVE c CARE. VITAL SIGNS REVIEWED. BED ALARM ON FOR SAFETY. CALL LIGHT IN REACH.
[2025-01-30] VITALS (8 sets, daily range): BP systolic 90–140; BP diastolic 54–77
[2025-01-30] MEDS ORDERED: FentaNYL Citrate 50 MCG/ML 2 ML Injection IV PRN (02:25)
--- NOTE | 2025-01-30 04:50 | NUR ---
PHARMACY TECHNICIAN PROGRAM DIRECTOR SUMMARY NO ACUTE CHANGES. HOWEVER PT IS VERY WAKEFUL AND RESTLESS T/O THE NIGHT. PT ON CONT BIOX AND OXYGEN SATS GREATER THAN 90%; NO OXYGEN NEEDED. PT C/O ON ONGOING PAIN AND DISCOMFORT T/O THE NIGHT IN LEFT SIDE R/T RIB FX. PT FREQUENTLY REPOSITIONED T/O THE NIGHT TO PREVENT INJURY AND ALLEVIATE PAIN. PT GIVEN SCHEDULED SUBOXONE WITH 2100 MEDS. PT DID EXPERIENCE SOME RELIEF WITH MEDICATION ALLOWING FOR A FEW HOURS OF SLEEP. PLACED CALL TO HOSPITALIST, SPOKE WITH DR BETANCOURT; NEW ORDER FOR 25-50MCG OF FENTANYL Q4 PRN. THIS RN HESITATED TO GIVE FENTANYL DUE TO CONCERN FOR INTERACTION WITH SUBOXONE. AT BEDSIDE WITH PT AT LEAST HOURLY. REGULAR INTERVAL ROUNDING COMPLETE T/O THE NIGHT. CALL LIGHT ACCESSIBLE. PUR WIC IN PLACE. PT HAVING GOOD URINE OUTPUT. PT UPRIGHT 90 DEGREES FOR ALL ORAL INTAKE.
[2025-01-30 05:45] LABS: Hematocrit 23.0 % (37.0-53.0); Hemoglobin 7.2 g/dL (13.5-17.5); Mean Corpuscular HGB Conc 31.3 g/dL (31.5-36.5); Mean Corpuscular Volume 94 fL (80-100); NRBC ABSOLUTE 0.00 K/mm3 (0.00-0.02); NRBC Auto 0.0 /100 WBC (0.0-0.2); Platelet Count 85 K/mm3 (150-400); RDW Coefficient Variation 18.2 % (11.7-14.2); RDW Standard Deviation 60.7 fL (35.1-46.3)
[2025-01-30 06:11] LABS: Anion Gap 8.0 mmol/L (3-11); Blood Urea Nitrogen 66.0 mg/dL (8-24); CO2, Blood 21.0 mmol/L (21-32); Calcium, Blood 8.9 mg/dL (8.5-10.1); Chloride, Blood 120.0 mmol/L (98-108); Creatinine, Blood 1.37 mg/dL (0.60-1.20); Glucose, Blood 144.0 mg/dL (70-99); Potassium, Blood 4.9 mmol/L (3.5-5.5); Sodium, Blood 144.0 mmol/L (136-145)
[2025-01-30] MEDS ORDERED: Sod Ferric Gluc Complx/Sucrose 125 MG in NS 100 ML IV SCH (09:43)
--- NOTE | 2025-01-30 14:57 | NUR ---
RECEIVED A PHONE CALL FROM PT'S AND GRANDSON. THEY REQUEST HOSPICE CONSULT FOR THE PATIENT WELL COMFORT CARE WHILE PT IS IN HOSPITAL. THE PATIENT IS ABLE TO MAKE HIS WANTS AND NEEDS KNOWN INTERMITTENTLY, BUT IS FREQUENTLY CONFUSED. NOTE HE WINCES AND CRIES OUT IN PAIN WITH MINIMAL MOVEMENT. DR. GRIMES AGREES FOR DISCHARGE WITH HOSPICE, AWAITING HER REPLY FOR COMFORT CARE.
--- NOTE | 2025-01-30 17:40 | NUR ---
SHIFT SUMMARY: PATIENT A/O TO SELF, PLACED AND PERSON, INTERMITTENT CONFUSION, BUT REDIRECTABLE. PATIENT MEDICATED FOR RIBS PAIN PER EMAR c MOD EFFECT. PATIENT SLEPT FOR THE MOST PART OF SHIFT, REPOSITIONED, FAIR APPETITE, 1:1 FEED ASSIST D/T WEAKNESS, PUREWICK/ATTENDS IN PLACED FOR INCONTINENT VOID. PATIENT RECEIVED SCHEDULED MEDS PE EMAR. VITAL SIGNS REVIEWED. PATIENT HAS HAD NO EVENTS ON TELE, AFIB HR IN THE HIGH 90'S TO 100'S BPM. PATIENT ON RA c HYDRAULIC LIFT OPERATOR, SATTING 95-98%. VITAL SIGNS REVIEWED. BED ALARM ON FOR SAFETY. CALL LIGHT IN REACH.
[2025-01-31 05:06] VITALS: BP 129/82
--- NOTE | 2025-01-31 05:50 | NUR ---
PATIENT WAS PLEASANT ALL NIGHT WITH A FEW EPISODES OF WAKING CONFUSED NOT KNOWING WHERE HE WAS, HE WAS EASILY REDIRECTABLE. HE COMPLAINED ONCE OF L RIB PAIN AND REQUESTED TYLENOL. IT WAS GIVEN CRUSHED IN APPLESAUCE. HE SEEMED TO HAVE A SMALL ISSUE GETTING IT DOWN, RESULTING IN ONE COUGH WHICH CLEARED THE BITE AND HE WAS ABLE TO SWALLOW IT WITHOUT FURTHER ISSUE, WELL A FEW SIPS OF WATER FROM A STRAW. VITALS HAVE BEEN STABLE.
[2025-01-31 09:33] LABS: Anion Gap 8.0 mmol/L (3-11); Blood Urea Nitrogen 43.0 mg/dL (8-24); CO2, Blood 21.0 mmol/L (21-32); Calcium, Blood 8.7 mg/dL (8.5-10.1); Chloride, Blood 120.0 mmol/L (98-108); Creatinine, Blood 1.14 mg/dL (0.60-1.20); Glucose, Blood 133.0 mg/dL (70-99); Potassium, Blood 4.9 mmol/L (3.5-5.5); Sodium, Blood 144.0 mmol/L (136-145)
[2025-01-31] MEDS ORDERED: Morphine Sulfate 20 MG/1ML 1 ML Oral Syringe SL PRN (11:10)
--- NOTE | 2025-01-31 11:13 | NUR ---
Pt placed on comfort care per family's wishes. Dr. Shaw in agreement, ordered CC. Pt winces, c/o pain with any movement.
--- NOTE | 2025-01-31 18:11 | NUR ---
SHIFT SUMMARY PATIENT PLACED ON COMFORT CARE PER FAMILY REQUEST. YANI PALLIATIVE CARE RN SPOKE WITH FAMILY REGARDING PLAN OF CARE AND PLACEMENT. PATIENT HAS LUJAN FOR END OF LIFE CARE COMFORT. PATIENT MEDICATED FOR PAIN PER EMAR. PATIENT REPOSITIONED FOR COMFORT. PATIENT ORIENTED TO SELF AND PLACE WITH INTERMITTENT CONFUSION. BED ALARM ON FOR SAFETY, CALL LIGHT IN REACH.
--- NOTE | 2025-01-31 21:49 | NUR ---
PT MEME ALEX CALLED ABOUT ABOUT UPDATE ON PT CONDITION. TOLD PT WAS ASLEEP AND COMFORTABLE, THEY THEN ASKED IF PT WAS STILL RECEIVING IV ABX AND WAS TOLD THAT THEY WERE ON COMFORT CARE MEASURES AND TRADITIONAL TREATMENTS HAVE STOPPED. PT WAS UNAWARE THAT COMFORT CARE MEASURES STOPPED PT FROM RECEIVING IV ABX, AND SAID THAT HE AND THE PT SPOUSE WOULD PREFER THAT THEY WOULD CONTINUE RECEIVING TREATMENT. MEME SAID THAT HE HAD DISCUSSED COMFORT CARE MEASURES WITH PALLIATIVE CARE YANI DICKSON, BUT DID NOT REALIZE THAT THIS STOPPED NORMAL TX. HE SAID THAT HE WILL CALL PALLIATICE CARE [place] AROUND 1030 TO DISCUSS SITUATION, AND WILL DROP OFF ADVANCED DIRECTIVE TOMORROW AROUND 1630.
--- NOTE | 2025-02-01 07:37 | NUR ---
SHIFT SUMMARY NOC PT A/O TO SELF. PLEASANT AND COOPERATIVE WITH CARE. ON COMFORT CARE MEASURE. PAIN AND AGITATION BEING MANAGED PER EMAR. AT BEGINNING OF SHIFT PT GRANDSON ABI LUCIO [phone] CALLED FOR UPDATE ON FAMILY MEMBER. PT ASKED IF IV ABX THERAPY WAS STILL ONGOING AND WAS TOLD THAT UNLESS SPECIFIED BY FAMILY/POA THAT COMFORT CARE MEASURES DO NOT INCLUDE NORMAL TREATMENTS. PT WAS UNAWARE OF THIS AND HAD SPOKEN TO PALLIATE CARE YANI LA PRIOR IN DAY PT IS SUPPOSED TO GO HOME TODAY ON HOSPICE. PT SPOUSE ALSO NOTIFIED BUT IS TOO CONFUSED TO UNDERSTAND SITUATION. ABI STATED THAT HE WILL CALL PALLIATIVE TODAY AROUND 1030 TO DISCUSS THE MATTER FURTHER TO COME TO A DECISION, AND WILL BE BRING IN AN ADVANCED DIRECTIVE FORM AROUND 1630. DURING CONVERSATION WITH THIS RN PT STARTED TO GET MORE CLARIFICATION ABOUT COMFORT CARE MEASURE, BUT WAS ADVISED TO TALK TO PALLIATIVE CARE WHO CAN GIVE BETTER INSIGHT. PT IS CURRENTLY RESTING WITH BED ALARM ON, BED IN LOWEST POSITION, AND CALL LIGHT WITHIN REACH.
--- NOTE | 2025-02-01 14:02 | NUR ---
Pt remains on comfort care. He continues eating bites, and requires feeding assistance. He is not attempting to get out of bed, and is only awake for short periods of time. Back pain appears to be well controlled at this time. Pt s son Shane called bedside RN nurse last evening requesting updated information. According to the note, he verbalized concern regarding lack of treatment. This RN returned Shane s call. He asked if we have tried giving Ivermectin to the pt given his history of MRSA. At that point we reviewed the pt s overall condition and multiple co-morbidities. Shane states he wasn t aware of heart failure, liver cirrhosis, CAD, or stroke history. He then verbalized understanding regarding comfort care and plan for hospice. Shane did verbalize concern regarding discharge planning, as the patient and spouse Rachel are no longer able to care for themselves safely, much less each other. 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 Pt s grandson Mendel lives in [place] and works time study observer. There are currently no local family members with any means to care for the patient. Rufino Oglesby states he will assist in scheduling intake for long-term medicaid, but that is a process. No safe discharge plan identified at this time.
--- NOTE | 2025-02-01 19:08 | NUR ---
PT PLEASANT WITH ME TODAY. CONTINUES ON COMFORT CARE. AIME IN TO VISIT AND BROUGHT HIS TO VISIT. GRANDSON ATTEMPTING TO WORK WAY FOR HOSPICE AT HOME. IF POSSIBLE. HAS BEEN WORKING WITH [employer]. NO OTHER NEW CONCERNS NOTED. BED INL OW POSITION, CALL LLITE IN REACH, BED ALARM ON FOR SAFETY.
--- NOTE | 2025-02-02 05:42 | NUR ---
Shift Summary Pt on comfort care. He slept comfortably t/o the entire shift. While awake during patient care he stated 0/10 pain and no nausea. No PRNs given yet this shift. Haddad catheter in place and patent, no signs of infection or problems. Janet colored urine. Pt is AOx1-2, lethargic with confusion upon waking up.
--- NOTE | 2025-02-02 16:54 | NUR ---
Spiritual Care Visit. Pt. is resting but after rousing him welcomes my visit. Pt. and this real estate rep agreed to have this real estate rep return in the morning.
--- NOTE | 2025-02-02 17:08 | NUR ---
SHIFT SUMMARY PT AOX2/3, COOPERATIVE, ABLE TO MAKE NEEDS KNOWN. PT IS COMFORT CARE. MEDICATING PER EMAR PRN. PT REMAINED IN BED FOR DUARTION OF SHIFT. TAKES MEDS CRUSHED IN APPLESAUCE, UNABLE TO GIVE FLOMAX DUE TO MED INSTRUCTION, WRITTEN IN EMAR NOTE. LUJAN INTACT. BED IN LOWEST POSITION, CALL LIGHT WITHIN REACH.
--- NOTE | 2025-02-03 05:34 | NUR ---
Shift Summary Pt sleeping well t/o most of the night. He woke up once around 0400 looking anxious and scared trying to get OOB. I was able to verbally calm him somewhat and convince him to get back in bed although he didn't seem to understand most of what I was saying. When asked if he was in pain he responded 'yes' and when asked to rate it 1-10 he would look at me blankly as if he didn't understand. I medicated x1 for pain and anxiety per emar. Pt then went back to sleep. He woke up a few more times but was calm. He is AOx1 with limited ability to communicate and understand.
--- NOTE | 2025-02-03 13:17 | NUR ---
RN NOTE MR PEREZ SAYS FEW WORDS, SOME YES/NO ANSWERS AND OCCASIONALLY ANSWERS QUESTIONS. HE HAS DEMONSTRATED SOME FACIAL GRIMACE WHEN REPOSITIONED AND EARLIER THIS SHIFT DID C/O BACK PAIN. ROXINOL 10MG SL APPEARS TO HELP WITH COMFORT. HE IS ABLE TO DRINK WITH ASSISTANCE AND HAS BEEN FED BREAKFAST AND LUNCH. LUJAN CATHETER IN PLACE WITH LOW VOLUME UOP. NO BM TODAY. HIS LONG HAIR WAS VERY MATTED AND HE ALLOWED HAIR CARE UNITL MOST OF THE MATS WERE REMOVED. TURNED AND REPOSITIONED IN BED. MEPILEX TO ABRASION LLL, COCCYX AND UMBILICAL HERNIA SITE WITH MINIMAL DRAINAGE. BED ALARM ON. BED LOW, CALL LIGHT IN REACH.
--- NOTE | 2025-02-03 19:11 | NUR ---
SHIFT SUMMARY MR PEREZ HAS BEEN MORE TALKATIVE WITH HIS FAMILY THIS EVENING. HE HAS HAD ROXINOL 10MG X 3 THROUGHOUT THE DAY WHICH HAS HELPED TO EASE HIS DISCOMFORT. HE DID NOT ANSWER ORIENTATION QUESTIONS FOR ME, ORIENTATED TO SELF. TURNED AND REPOSITIONED Q2HRS. AND GRANDSON VISITED THIS EVENING.
--- NOTE | 2025-02-04 04:20 | NUR ---
PATIENT PROGRAM SPECIALIST. HAS REQUIRED A FEW DOSES OF PRN ROXINOL FOR COMFORT. HAS HAD SOME HALLUCINATIONS BUT WAS REDIRECTABLE. NO ACUTE EVENTS OVERNIGHT
[2025-02-04] MEDS ORDERED: Docusate Sodium Liquid 100 MG UDC PO SCH (09:00)
--- NOTE | 2025-02-04 10:46 | NUR ---
PALLIATIVE CARE NOTE: PT HAD ADVANCE DIRECTIVE DOCUMENT IN THE ROOM. IT IS SIGNED BUT UNKNOWN WHO SIGNED THE DOCUMENT. IT WAS NOT NOTARIZED AND WAS NOT WITNESSED WITH SIGNATURES SO IT IS INVALID. CALLED DAUGHTER ANNETTE BACK SHE WAS WHO CALLED AND REQUESTED FOLLOW-UP ON IT. SHE WILL CALL OLYA TO LET HER KNOW. APPARENTLY OLYA WAS SUPPOSED TO BRING AN ADVANCE DIRECTIVE ALSO TO BE NOTARIZED,
--- NOTE | 2025-02-04 12:18 | NUR ---
RN NOTE MR PEREZ HAS BEEN SLEEPING ON AND OFF. TURNED AND REPOSITIONED Q2HRS, GIVEN BEDBATH AND LUJAN CARE. HE SOMETIMES HAS FACIAL GRIMACE WHEN TURNED AND SAID ONCE THAT HE HURT AFTER BEDBATH. MEDICATED X 2 WITH ROXINOL 10MG THAT SEEMS TO HELP HIM. HE IS ORIENTATED TO SELF. FAMILY AT BEDSIDE NOW. BED LOW, BED ALARM ON, CALL LIGHT IN REACH.
--- NOTE | 2025-02-04 14:57 | NUR ---
PATIENTS SON CAME OUT OF THE ROOM REQUESTING TO SPEAK TO YANI GAMEZ. ASKED IF THERE WAS ANYTHING I COULD HELP WITH. I ENTERED THE ROOM AND FAMILY WAS AT BEDSIDE. SPOUSE INTRODUCED HERSELF AND DISCUSSED AN AD THAT THEY WERE WORKING ON AND THAT THE GRANDSON WAS GOING TO HAVE A NOTRY COME IN TO SIGN IT LATER THIS EVENING. PATIENT REPORTS FEELING WELL AT THIS TIME.
--- NOTE | 2025-02-04 15:58 | NUR ---
SHIFT SUMMARY MR PEREZ HAS SOME FACIAL GRIMACE AND MOANING TODAY. MEDICATED WITH ROXINOL MORE OFTEN TODAY, BECAUSE OF GRIMACE/MOANING/FAMILY REQUEST WHEN HE HAS SAID HE'S IN PAIN. REPOSITIONED AND SUPPORTED WITH PILLOWS. HE HAS MINIMAL CONVERSATION. BED LOW, CALL LIGHT IN REACH, BED ALARM ON.
--- NOTE | 2025-02-04 18:31 | NUR ---
"Spiritual Care Visit | Comfort Care Pt. is on comfort care and is soundly somnolent. Pt. would not ouse to my presence. Prayed for the Pt. Will remain available."
--- NOTE | 2025-02-05 06:34 | NUR ---
SHIFT SUMMARY PT A/O X2, DISORIENTED TO TIME AND SITUATION. COMFORT CARE MEASURES IN PLACE. PRN ROXINOL GIVEN FOR PAIN, ATIVAN FOR ANXIETY. PT EXPRESSED FEELING "STRONG NOT WEAK; I DON'T WANT TO ; AM I DYING?". MINIMAL ORAL INTAKE. SAFETY PRECAUTIONS IN PLACE.
--- NOTE | 2025-02-05 16:50 | NUR ---
SHIFT SUMMARY PT AOX1/2, COOPERATIVE, ABLE TO MAKE NEEDS KNOWN. PT IS BEDREST AND COMFORT CARE. DID GET ON EDGE OF BED FOR BREAKFAST. LUJAN CATHETER INTACT AND DRAINING TO GRAVITY. TOLERATING MEDICATION CRUSHED IN APPLESAUCE. BED ALARM ACTIVE. BED IN LOWEST POSITION, CALL LIGHT WITHIN REACH.
--- NOTE | 2025-02-06 06:28 | NUR ---
SHIFT SUMMARY A/Ox2, DISORIENTED TO PLACE, SITUATION. COMFORT CARE MEASURES IN PLACE. PT REPORTS BURNING AT SKIN, FOUND PT SCRATCHING, LOTION APPLIED. NO BM OVERNIGHT, CONCERN FOR CONSTIPATION. SAFETY PRECAUTIONS IN PLACE.
--- NOTE | 2025-02-06 17:18 | NUR ---
SHIFT SUMMARY PT AOX1, COOPERATIVE, ABLE TO MAKE NEEDS KNOWN. PT IS COMFORT CARE, BEDREST, ON ROOM AIR. FAMILY BESIDE SOME OF DAY. FAMILY ASKING QUESTIONS AND THIS RN ANSWERS APPROPRIATELY. FAMILLY WAS ABLE TO FEED PT HANDFUL OF BITES OF LUNCH. CATHETER INTACT AND DRAINING TO GRAVITY. MEDICATING FOR PAIN AND AIR HUNGER PER EMAR. BED IN LOWEST POSITION, CALL LIGHT WITHIN REACH.
--- NOTE | 2025-02-07 05:53 | NUR ---
SHIFT SUMMARY PT ALERT, ORIENTED TO SELF. UNABLE TO ASSESS FURTHER, PT DID NOT RESPOND TO QUESTIONS. PT INDEPENDENTLY MOVED SELF TO EDGE OF BED AND BACK; 1:1 MONITORING WHEN AT EOB. NO PAIN NOTED BY FLACC OR FACES SCALE. Q2 TURNS COMPLETED. SAFETY PRECAUTIONS IN PLACE.
--- NOTE | 2025-02-07 17:05 | NUR ---
SHIFT SUMMARY PT ON COMFORT CARE. PT OFFERED REPOSITIONING, AND RESUFED, SHOULD REFLECT IN SCRUBBER OPERATOR CHARTS. LUJAN INTACT AND DRAINING TO GRAVITY. EPISODES OF AROUSAL. EPISODES OF APNEA OF 10 TO 15 SECONDS WHILE EYES CLOSED. TOLERATING MEDICATIONS. BED ALARM ACTIVE. BED IN LOWEST POSITION, CALL LIGHT WITHIN REACH.
--- NOTE | 2025-02-08 00:14 | NUR ---
Patient remains in droplet isolation for MRSA and ESBL in sputum. Patient did wake up to light being turned on. Oral care given and pt did not like the toothlet sponge. He refused the chap stick. Pt was repositioned up in bed. Pt was able to drink 120ml of H20 with no difficulty. Medicated with roxanol 20mg for pain, generalized discomfort. No respiratory distress. attends changed and cath care given. Repositioned to left side. Bed alarm on.
--- NOTE | 2025-02-08 05:03 | NUR ---
SHIFT SUMMARY PATIENT CONTINUES ON COMFORT CARE. PATIENT AROUSABLE. CALLS OUT AT TIMES. PAIN MEDS OFFERED PERIODICALLY. PATIENT DENIES NEED AND STATES "NOT YET" OR STATES "IF YOU THINK I NEED IT" WHEN UNDISTURBED, PATIENT FALLS BACK ASLEEP. NO FAMILY AT BEDSIDE AT THIS TIME. CONTINUE TO TURN PATIENT FOR COMFORT AND TO PREVENT SKIN BREAKDOWN.
--- NOTE | 2025-02-08 10:56 | NUR ---
1050- VERBAL FROM MD RODRIGES TO STIVEN WAGNER.
--- NOTE | 2025-02-08 18:16 | NUR ---
SUMMARY- PT AAOX1 TO SELF ONLY THIS SHIFT. PT IS AWARE AND ORIENTED TO HIS FAMILY WELL. PT MEDICATED X2 THIS SHIFT WITH ROXANOL FOR GENERAL PAIN; PROVIDED RELIEF. PT ON RA. BED REST. MULTIPLE FAMILY MEMBERS VISITED PT TODAY. NO ACUTE EVENTS THIS SHIFT.
--- NOTE | 2025-02-09 04:04 | NUR ---
Shift Summary AOx1. Shanears out for help. Looking for his hat but also states that he would never wear a hat to the hospital so pt was redirectable. Explained that patient is to discharge home so he can try to find it there or ask his in the morning. Slept through the night. Pleasant. Cooperative. Haddad intact, patent and drainging to gravity. Denies pain. Call light in reach.
[2025-02-09] MEDS ORDERED: ZINC OXIDE/PETROLATUM, YELLOW 1 APPLIC/71 GM PASTE TOP PRN (14:15)
--- NOTE | 2025-02-09 16:02 | NUR ---
SHIFT SUMMARY PATIENT AND DAUGHTER IN WITH PATIENT FOR SEVERAL HOURS. SPIRITUAL CARE VISITED. PALLIATIVE CARE VISITED. PATIENT WAS NOTED TO HAVE A STAGE 1 PRESSURE ULCER DEVELOPING AT THE [facility]. WOUND CARE PROVIDED PER PROTOCOL. WOUND CARE PROTOCOL ADDED TO PATIENT ORDERS. PATIENT A&O X3. TREATED FOR PAIN PER EMR. ROTATED Q2HR THROUGHOUT SHIFT. BED CURRENTLY IN THE LOWEST POSITION. BED ALARM ON, CALL LIGHT WITHIN REACH.
--- NOTE | 2025-02-10 05:05 | NUR ---
SUMMARY: PT AOX1, REPO Q 2, LUJAN IN PLACE, RA. PT ON COMFORT CARES. MEDICATED FOR PAIN PER EMAR. ABLE TO GET PERIODS OF UNITNERRUPTED SLEEP OVERNIGHT. CALL LIGHT WITHIN REACH.
[2025-02-10] MEDS ORDERED: Ativan1 MG PO (10:10)
[2025-02-10] MEDS ORDERED: MORP20L SL (10:10)
--- NOTE | 2025-02-10 12:41 | NUR ---
DISCHARGE NOTE- PT WAS TAKEN VIA GURNEY TRANSPORT TO HIS HOME. HE WAS DISCHARGED ON HOSPICE. CARL COORDINATION HAS BEEN IN CONTACT WITH THE FAMILY T/O THE DISCHARGE PROCESS. THEY ARE AWARE OF THE PLAN. PT WAS UNABLE TO RECIEVE DISCHARGE EDUCATION. PACKET WAS PUT TOGETHER FOR THE FAMILY BY CARE COORDINATION. PT WAVED GOODBYE TO STAFF AND SAID "HAVE A GREAT DAY!" ON HIS WAY OUT. NO S&S OF DISTRESS NOTED.
== END 2025-02-10 12:41 | disposition hospice, home (50) | DRG 183 ==
LOC: ER 17:30 → MEDS 01-28 01:26 → ICUE 01-28 04:04 → MEDS 01-29 16:04 → ENPENDDIS 02-10 09:47 → MEDS 02-10 12:41
PROVIDERS: Emergency Medicine; Internal Medicine; Student in an Organized Health Care Education/Training Program; ADMIT Internal Medicine
PROC: 30233N1 Transfusion of Nonautologous Red Blood Cells into Peripheral Vein, Percutaneous Approach (ICD-10-PCS; principal; 2025-01-28)
DX: S22.41XA Multiple fractures of ribs, right side, initial encounter for closed fracture (principal); G92.8 Other toxic encephalopathy; I81 Portal vein thrombosis; G93.41 Metabolic encephalopathy; D61.818 Other pancytopenia; N17.9 Acute kidney failure, unspecified; I50.32 Chronic diastolic (congestive) heart failure; I82.502 Chronic embolism and thrombosis of unspecified deep veins of left lower extremity; I48.20 Chronic atrial fibrillation, unspecified; I48.92 Unspecified atrial flutter; Z51.5 Encounter for palliative care; I11.0 Hypertensive heart disease with heart failure; K21.9 Gastro-esophageal reflux disease without esophagitis; I25.10 Atherosclerotic heart disease of native coronary artery without angina pectoris; I25.2 Old myocardial infarction; G89.4 Chronic pain syndrome; G47.33 Obstructive sleep apnea (adult) (pediatric); E86.0 Dehydration; I48.0 Paroxysmal atrial fibrillation; E87.5 Hyperkalemia; K74.60 Unspecified cirrhosis of liver; R09.02 Hypoxemia; E11.42 Type 2 diabetes mellitus with diabetic polyneuropathy; J44.9 Chronic obstructive pulmonary disease, unspecified; N40.0 Benign prostatic hyperplasia without lower urinary tract symptoms; E66.9 Obesity, unspecified; I95.89 Other hypotension; E11.51 Type 2 diabetes mellitus with diabetic peripheral angiopathy without gangrene; R62.7 Adult failure to thrive; Z68.35 Body mass index [BMI] 35.0-35.9, adult; Z79.4 Long term (current) use of insulin; Z79.899 Other long term (current) drug therapy; Z79.84 Long term (current) use of oral hypoglycemic drugs; Z79.01 Long term (current) use of anticoagulants; Z88.0 Allergy status to penicillin; Z91.013 Allergy to seafood; Z88.8 Allergy status to other drugs, medicaments and biological substances; Z79.02 Long term (current) use of antithrombotics/antiplatelets; Z86.19 Personal history of other infectious and parasitic diseases; Z90.89 Acquired absence of other organs; Z98.890 Other specified postprocedural states; Z89.511 Acquired absence of right leg below knee; Z86.73 Personal history of transient ischemic attack (TIA), and cerebral infarction without residual deficits; F17.210 Nicotine dependence, cigarettes, uncomplicated; W18.30XA Fall on same level, unspecified, initial encounter; Y92.009 Unspecified place in unspecified non-institutional (private) residence as the place of occurrence of the external cause
CPT/HCPCS: 36415; 36430; 70450; 71101; 71260; 72125; 74177; 80048; 80053; 81001; 82140; 82728; 82947; 83540; 83550; 83735; 84100; 85014; 85018; 85025; 85027; 85610; 85651; 85730; 86850; 86900; 86901; 86923; 87070; 87077; 87086; 87186; 87205; 92526; 92610; 93005; 93010; 94760; 94762; 96361; 96374-59; 96375; 97110; 97161; 97165; 97530; 99285-25; A9270; J1200; J1720; J1815; J2916; J7030; J7040; P9016; Q9967